=== PATIENT | male | born 1990 | race Two or more races ===

== ENCOUNTER 2025-01-10 22:39 | Inpatient (IN) | payer BC ==
[~2025-01-10] VITALS: Ht 177.8 cm; Wt 111.5 kg
[2025-01-11] VITALS (8 sets, daily range): BP systolic 133–163; BP diastolic 80–95; PULSE 102–116; RESP 18–20; TEMP 98.6–99.2; O2SAT 93–95
[2025-01-11] MEDS ORDERED: DEXTROSE (50%) 50ML SYRG IV PRN (02:00)
[2025-01-11] MEDS ORDERED: ONDANSETRON HCL 4 MG/2 ML VIAL IV PRN (02:00)
[2025-01-11 02:41] LABS: Basophils # (auto) 0.1 10 ^3/uL (0-0.2); Basophils % (auto) 0.5 % (0.0-2.0); Eosinophils # (auto) 0 10 ^3/uL (0-0.8); Eosinophils % (auto) 0.1 % (0.0-7.0); Hematocrit 40.6 % (41.0-53.0); Hemoglobin 13.6 g/dL (13.5-17.5); Lymphocytes # (auto) 1.1 10 ^3/uL (0.4-5.4); Lymphocytes % (auto) 6.1 % (10.0-50.0); Mean Corpuscular Hemoglobin 27.8 pg (28.0-32.0); Mean Corpuscular Hgb Conc. 33.5 g/dL (32.0-36.0); Monocytes # (auto) 1.2 10 ^3/uL (0-1.3); Monocytes % (auto) 6.7 % (0.0-12.0); Neutrophils # (auto) 15.8 10 ^3/uL (1.6-8.6); Neutrophils % (auto) 86.6 % (37.0-80.0); Nucleated Red Blood Cells % 0.1 %; Platelet Count (auto) 281 10^3/uL (140-450); Red Blood Cells 4.89 10^6/uL (4.5-5.90); Red Cell Distribution Width 13.7 % (11.8-14.3); White Blood Cell 18.2 10^3/uL (4.4-10.8)
[2025-01-11 03:01] LABS: Alanine Aminotransferase 13 U/L (7-40); Albumin 3.4 g/dL (3.2-4.8); Alkaline Phosphatase 104 U/L (46-116); Anion Gap 9 (5-15); Aspartate Aminotransferase 16 U/L (13-40); BUN/Creatinine Ratio 20.5 (10.0-20.0); Bilirubin, Total 0.5 mg/dL (0.2-1.0); Blood Urea Nitrogen 9 mg/dL (9-23); Carbon Dioxide 28 mmol/L (20-31)
[2025-01-11 03:14] LABS: Calcium 8.6 mg/dL (8.7-10.4); Chloride 94 mmol/L (98-107); Glucose 277 mg/dL (74-106); Sodium 131 mmol/L (136-145); Total Protein 5.5 g/dL (5.7-8.2)
--- NOTE | 2025-01-11 03:27 | BSKYNEURO ---
[facility] Note # Demographics Consult Type: General Neurology Patient Location: Inpatient First Name: Anjum Last Name: Ant Date of : 1990 Age: 34 Gender: Male Facility: [facility] Time of Initial Page (): 01/11/2025 02:53 Time of Return Call (): 01/11/2025 02:53 # HPI History: pt was transferred from [place] for further evaluation. history is taken entirely from the patient as I am unable to reach the consulting provider. I have no access to the outside records. there is no information in his chart at the time of the consultation. The patient reprots t he following about his hospitalization and history of symptoms: wednesday started to have symptoms in the left leg. he states his leg felt numb which worsened at that time. He reports an MRI of the brain was done which he was told dint show anything. he reprots pain in his upper back which is not new. reports left arm weakness which has been ongoing for 2 weeks around the time that the pain started. denies urinary # Exam Mental Status: - awake - alert and oriented x 3 - follows commands Language: - normal speech Cranial Nerves: - normal Motor: left arm drift. left leg unable to lift anti-gravity, able to move distally. right side appears to have no drift Cerebellar: normal right, Additional Neurologic Exam: This evaluation is limited due to being a telemed assessment, in person assessment will be helpful for more subtle signs that cannot be detected over telemed or aspects of the exam that are untestable over a telemed assessment # Assessment Impression: left sided weakness with upper back pain. concern for C-spine cause. pt was told his brain MRIw as without a cause # Plan Imaging: (urgency: routine): - MRI C spine - MRI T spine wwo contrast Therapy/Evaluation: - PT/OT evaluation Other: - If patient has any neurological deterioration please call me back immediately Additional Recommendations: Further work-up based on MRI results # Logistics Attestation of consult completion: The patient is located at: [facility]. Facility staff participated in the visit. I performed this telemedicine visit from my offsite office utilizing interactive 2 way audio and visual telecommunication technology. Total time spent in telemedicine encounter: I spent 10 minutes reviewing clinical data and/or imaging, obtaining history, examining the patient, communicating with the onsite care team, and in preparation of this report. # Demographics First Name: Anjum Last Name: Ant Facility: [facility] Yes PLACIDO HERNANDEZ DO Jan 11, 2025 03:27
[2025-01-11] MEDS ORDERED: hydrALAZINE HCL 20 MG/ML VL IV PRN (04:15)
--- NOTE | 2025-01-11 04:29 | DVHHP2 ---
History of Present Illness Reason for Visit: Left-sided weakness History of Present Illness 34-year-old male transferred for continuity of care and disposition. Patient presented to outside facility with complaints of left-sided weakness and slurred speech. Patient was worked up for acute stroke. MRI of the brain and CT of the head and neck were all negative for acute stroke. Patient's slurred speech resolved. He continues to have left arm and left leg weakness. Patient denies headache or blurred vision. No cardiac or respiratory complaints. Past Medical History Hypertension and diabetes mellitus Past Surgical History Cholecystectomy Family History Noncontributory Smoke: No ALCOHOL: none Drugs: None Lives: with Family Review of Systems Review of Systems Review of systems are currently negative otherwise addressed in HPI. Allergies: Coded Allergies: NO KNOWN ALLERGIES (Unverified , 01/11/25) Medications Current Medications Medications Dose Ordered Sig/Anita Route Start Time Stop Time Status Last Admin Dose Admin Aspirin 162 mg DAILY PO 01/11/25 10:00 Atorvastatin Calcium 20 mg HS PO 01/11/25 22:00 Diagnostic Test (Pha) 1 strip ACHS 01/11/25 07:00 Insulin Human Regular ACHS SC 01/11/25 07:00 Dextrose 50 ml UD PRN IV 01/11/25 02:00 Ondansetron HCl 4 mg Q4HP PRN IV 01/11/25 02:00 Enoxaparin Sodium 40 mg DAILY SC 01/11/25 10:00 UNV Acetaminophen 650 mg Q6HP PRN PO 01/11/25 02:00 Exam Vital Signs Vital Signs Date Time Temp Pulse Resp B/P (MAP) Pulse Ox O2 Delivery O2 Flow Rate FiO2 01/11/25 01:00 99.0 102 19 163/95 (117) 95 99.0 01/11/25 00:49 Room Air* 0 21 Exam Gen: 34-year-old male in mild distress Skin: Warm, dry, normal color and texture, no rash. HEENT: Normocephalic atraumatic, mucous membranes moist and pink. Neck: Cervical and supraclavicular nodes normal without enlargement, trachea is midline, thyroid gland is normal without masses. Pulmonary: Clear to auscultation and percussion bilaterally. Cardiac: Regular rate and rhythm. No murmur Abdomen: Soft, nontender, nondistended, bowel sounds present all 4 quadrants, no guarding, no rigidity, no organomegaly. Extremities: No cyanosis, clubbing, no edema Neuro: Cranial nerves II through XII grossly intact, normal affect and speech,LUE4/5, LLE1/5, RUE/RLE 5/5 Labs/Xrays MRI of the brain, CT of the brain and neck with contrast, CT angio of the chest showed no acute pathology Labs Test 01/11/25 02:23 Range/Units White Blood Count 18.2 H 4.4-10.8 10^3/uL Red Blood Count 4.89 4.5-5.90 10^6/uL Hemoglobin 13.6 13.5-17.5 g/dL Hematocrit 40.6 L 41.0-53.0 % Mean Corpuscular Volume 83.0 80.0-100.0 fL Mean Corpuscular Hemoglobin 27.8 L 28.0-32.0 pg Mean Corpuscular Hemoglobin Concent 33.5 32.0-36.0 g/dL Red Cell Distribution Width 13.7 11.8-14.3 % Platelet Count 281 140-450 10^3/uL Mean Platelet Volume 7.3 6.9-10.8 fL Neutrophils (%) (Auto) 86.6 H 37.0-80.0 % Lymphocytes (%) (Auto) 6.1 L 10.0-50.0 % Monocytes (%) (Auto) 6.7 0.0-12.0 % Eosinophils (%) (Auto) 0.1 0.0-7.0 % Basophils (%) (Auto) 0.5 0.0-2.0 % Neutrophils # (Auto) 15.8 H 1.6-8.6 10 ^3/uL Lymphocytes # (Auto) 1.1 0.4-5.4 10 ^3/uL Monocytes # (Auto) 1.2 0-1.3 10 ^3/uL Eosinophils # (Auto) 0 0-0.8 10 ^3/uL Basophils # (Auto) 0.1 0-0.2 10 ^3/uL Nucleated Red Blood Cells 0.1 % Sodium Level 131 L 136-145 mmol/L Potassium Level 4.0 3.5-5.1 mmol/L Chloride Level 94 L 98-107 mmol/L Carbon Dioxide Level 28 20-31 mmol/L Anion Gap 9 5-15 Blood Urea Nitrogen 9 9-23 mg/dL Creatinine 0.44 L 0.700-1.30 mg/dL Glomerular Filtration Rate Calc 142 >90 mL/min BUN/Creatinine Ratio 20.5 H 10.0-20.0 Serum Glucose 277 H 74-106 mg/dL Calcium Level 8.6 L 8.7-10.4 mg/dL Total Bilirubin 0.5 0.2-1.0 mg/dL Aspartate Amino Transferase (AST) 16 13-40 U/L Alanine Aminotransferase (ALT) 13 7-40 U/L Alkaline Phosphatase 104 46-116 U/L Troponin I High Sensitivity 13 </=54 ng/L Total Protein 5.5 L 5.7-8.2 g/dL Albumin 3.4 3.2-4.8 g/dL Assessment/Plan Assessment/Plan Assessment Cerebrovascular accident, nonhemorrhagic Uncontrolled diabetes mellitus Accelerated hypertension Leukocytosis Plan Admit the patient to [facility] to the hospitalist Neurology consultation MRI of the brain with contrast as well as MRI of the C-spine has been ordered per Neurology recommendations Resume home medications Continue treatment per orders. Plan discussed with: Patient My Orders Orders - EULALIO OLVERA Procedure Category Date Status Time Communication Order ORDERS 01/11/25 Transmitted 01:58 * Neurology Consult CONS 01/11/25 Transmitted 01:58 Atorvastatin (Lipitor) PHA 01/11/25 In Process 22:00 Glucose Blood PHA 01/11/25 In Process (Accu-Chek Comfort 07:00 Insulin R (Human) PHA 01/11/25 In Process (Insulin R) 07:00 Dextrose 50% Syringe PHA 01/11/25 In Process 02:00 Admit ADMIT 01/11/25 Transmitted 01:58 Ondansetron Hcl PHA 01/11/25 In Process (Zofran) 02:00 Enoxaparin Sodium PHA 01/11/25 Pending (Lovenox) 10:00 Cardiac DIET 01/11/25 Transmitted Diet-2gna,Lofat,Lochol Breakfast Condition: Stable LEONCIO 01/11/25 In Process 01:58 Acetaminophen Tablet PHA 01/11/25 In Process (Tylenol Tablet) 02:00 Sequential LEONCIO 01/11/25 In Process Compression Device [facility] Neuro Consult CONS 01/11/25 Transmitted 02:54 * Wound Consult CONS 01/11/25 Transmitted Aspirin Tablet PHA 2/20/25 In Process 04:15 Urinalysis LAB 01/11/25 Logged 04:12 Losartan Tablet PHA 01/11/25 In Process (Cozaar Tablet) 10:00 Metoprolol Tartrate PHA 01/11/25 Logged Tablet (Lopressor Ta 10:00 Hydralazine Injection PHA 01/11/25 Logged (Apresoline Inject 04:15 Brain Head Wo W MRI 01/11/25 Logged Contrast 04:12 Cervical Wo Contrast MRI 01/11/25 Logged 04:12 Cervical With Contrast MRI 01/11/25 Verified 04:20 Brain Head Wo W MRI 01/11/25 Verified Contrast 04:20 Date of Service: Jan 11, 2025 Billing Provider: EULALIO OLVERA Common Visit Codes: [id number] INP/OBS CARE (HIGH) EULALIO OLVERA Jan 11, 2025 04:29
[2025-01-11] MEDS: InsuLIN REG 1unit/0.01ml Soln (100units/ml) SC SCH (05:53)
[2025-01-11] MEDS: ASPirin 81 mg TAB PO SCH (05:55)
[2025-01-11] MEDS: ACCU-CHEK COMFORT CURVE STRIP VI SCH (05:55)
--- NOTE | 2025-01-11 09:40 | DVH ---
PROCEDURE: MRI CERVICAL WITH CONTRAST INDICATION: left leg weakness EXAM DATE: 01/11/2025 08:36 AM COMPARISON: None TECHNIQUE: MRI cervical spine with and without 20 cc clariscan intravenous contrast. FINDINGS: The cervical alignment is intact. There is marrow edema and enhancement with destructive endplate ch anges at C4-5. There is surrounding enhancing soft tissue phlegmon at this level. There is a peripher ally enhancing epidural abscess measuring up to 10 x 17 mm extending from the C3-4 level through the visualized upper thoracic spine. The visualized posterior fossa and craniocervical junction are inta ct. There appears to be patchy abnormal cord signal in the lower cervical and upper thoracic levels. The following axial levels are detailed below: C2-C3: Unremarkable. C3-C4: Unremarkable. C4-C5: Epidural abscess results in severe central canal stenosis with impression on the cervical cor d. Moderate right neural foraminal stenosis. C5-C6: Epidural abscess results in severe central canal stenosis with impression on the cervical cor d. Mild right neural foraminal stenosis. C6-C7: Epidural abscess results in severe central canal stenosis and [id number] left neural fo raminal stenosis. C7-T1: Epidural abscess results in severe central canal stenosis and [id number] left neural fo raminal stenosis IMPRESSION: 1. 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 Distal extent of the abscess is not identified. Consi nhung further evaluation with MRI of the thoracic and lumbar spine with contrast. Abscess results in se jalen central canal stenosis with impression on the cord. There is surrounding soft tissue phlegmon at the C4-5 level. There is patchy abnormal cord signal in the lower cervical and upper thoracic spine. 2. Neural foraminal stenosis as above. Critical Result: Cord Compression Findings discussed with Nurse Tawanna taking care of the patient at 01/11/2025 09:34 AM, and acknowled ged receipt and understanding of the findings. HS:Y
--- NOTE | 2025-01-11 09:49 | DVH ---
PROCEDURE: MRI BRAIN HEAD WO W CONTRAST INDICATION: r/o cva EXAM DATE: 01/11/2025 08:24 AM COMPARISON: None TECHNIQUE: MRI of the brain without intravenous contrast. FINDINGS: Diffusion weighted images of the brain demonstrate no evidence of acute infarction. There is no evidence of acute intracranial hemorrhage, extra-axial collection, mass effect, midline s hift, herniation or hydrocephalus. The ventricles, sulci and cisterns appear age appropriate. There is signal abnormality in the high left frontal lobe. No associated abnormal enhancement. There are no signal abnormalities on the susceptibility weighted sequences. The major vascular flow voids are present. The visualized paranasal sinuses and mastoid air cells are clear. The surrounding soft tissues and o sseous structures are unremarkable. IMPRESSION: 1. Abnormal signal in the left high frontal lobe without associated enhancement. Patient has suspect ed osteomyelitis discitis with an epidural abscess in the cervical spine. It is unlikely that this is related given lack of enhancement, but not completely excluded. This is more likely related to an o ld infarct or trauma. Clinical correlation and continued follow-up is recommended. HS:Y
[2025-01-11] MEDS ORDERED: ASPirin 81 mg TAB PO SCH (10:00)
[2025-01-11] MEDS: METOPROLOL TARTRATE 50 MG TAB PO SCH (10:42)
[2025-01-11] MEDS: ENOXAPARIN SOD 40 MG/0.4 ML SYRINGE SC SCH (10:42)
[2025-01-11] MEDS: LOSARTAN POTASSIUM 50 MG TAB PO SCH (10:43)
[2025-01-11] MEDS ORDERED: VANCOMYCIN PER PHARMACY 0 MG IV SCH (10:45)
--- NOTE | 2025-01-11 10:46 | DVHPN2 ---
Reviewed: Care Plan, H&P, Labs, Medications, Previous Orders, Radiology Changes from previous H/P or p: No Changes Objective Vitals Vital Signs Date Time Temp Pulse Resp B/P (MAP) Pulse Ox O2 Delivery O2 Flow Rate FiO2 01/11/25 09:00 98.7 106 20 140/81 (100) 93 98.7 01/11/25 00:49 Room Air* 0 21 Intake/Output Intake and Output 01/11/25 06:59 Intake Total 150 ml Output Total 800 ml Balance -650 ml Intake Oral 150 ml Output Urine Total 800 ml Medications Current Medications Medications Dose Ordered Sig/Anita Route Start Time Stop Time Status Last Admin Dose Admin Atorvastatin Calcium 20 mg HS PO 01/11/25 22:00 Diagnostic Test (Pha) 1 strip ACHS 01/11/25 07:00 01/11/25 05:55 1 STRIP Insulin Human Regular ACHS SC 01/11/25 07:00 01/11/25 05:53 4 UNITS Dextrose 50 ml UD PRN IV 01/11/25 02:00 Ondansetron HCl 4 mg Q4HP PRN IV 01/11/25 02:00 Enoxaparin Sodium 40 mg DAILY SC 01/11/25 10:00 Acetaminophen 650 mg Q6HP PRN PO 01/11/25 02:00 Aspirin 81 mg DAILY PO 01/11/25 04:15 01/11/25 05:55 81 MG Losartan Potassium 50 mg BID PO 01/11/25 10:00 Metoprolol Tartrate 50 mg BID PO 01/11/25 10:00 Hydralazine HCl 10 mg Q6HP PRN IV 01/11/25 04:15 Laboratory Results Laboratory Tests 01/11/25 02:23 Chemistry Test 01/11/25 02:23 Albumin 3.4 g/dL (3.2-4.8) Calcium Level 8.6 mg/dL (8.7-10.4) L Total Protein 5.5 g/dL (5.7-8.2) L LFT Test 01/11/25 02:23 Alanine Aminotransferase (ALT) 13 U/L (7-40) Alkaline Phosphatase 104 U/L (46-116) Aspartate Amino Transferase (AST) 16 U/L (13-40) Total Bilirubin 0.5 mg/dL (0.2-1.0) Labs and/or images reviewed: Labs reviewed by me, Image(s) reviewed by me Assessment/Plan Assessment/Plan Left upper extremity weakness one month Left lower extremity weakness five days Epidural abscess C4-5 level with cord compression: Consult placed for spine surgeon Dr. Thakur for emergency decompression Osteomyelitis C-spine: Cefepime vancomycin Plan discussed with: Patient My Orders Orders - SHELLI MARTIN MD Procedure Category Date Status Time Vancomycin Per PHA 01/11/25 Logged Pharmacy 10:45 Cefepime 2gm/50ml Ns PHA 01/11/25 Logged (Maxipime 2gm/50ml) 14:00 * Orthopedic Consult CONS 01/11/25 Transmitted 10:38 Date of Service: Jan 11, 2025 Billing Provider: SHELLI MARTIN MD Common Visit Codes: [id number] INP/OBS CARE(HIGH) SHELLI MARTIN MD Jan 11, 2025 10:46
--- NOTE | 2025-01-11 11:17 | DVHINCON2 ---
MARCO ANTONIO THAKUR MD 01/11/25 1117: Consultation - Spinal Surgery Date Seen: Jan 11, 2025 Referring Physician Referring Physician elaina History of Present Illness History of Present Illness unfortunate patient thought to have a stroke but MRI cervical spine reveals likely epidural abscess. The patient is currently not having increasing T or increasing WBC but the abscess was just noted on MRI Allergies and medications Allergies: Coded Allergies: NO KNOWN ALLERGIES (Unverified , 01/11/25) Examination Vital signs Vital Signs Date Time Temp Pulse Resp B/P (MAP) Pulse Ox O2 Delivery O2 Flow Rate FiO2 01/11/25 10:43 140/81 01/11/25 10:42 106 01/11/25 09:00 98.7 20 93 98.7 01/11/25 00:49 Room Air* 0 21 Medications Current Medications Medications (Trade) Dose Ordered Sig/Anita Route PRN Reason Start Time Stop Time Status Last Admin Aspirin 162 mg DAILY PO 01/11/25 10:00 01/11/25 04:19 DC Atorvastatin Calcium (Lipitor) 20 mg HS PO 01/11/25 22:00 Diagnostic Test (Pha) (Accu-Chek Comfort Curve T) 1 strip ACHS 01/11/25 07:00 01/11/25 05:55 Insulin Human Regular (InsuLIN R) ACHS SC 01/11/25 07:00 01/11/25 05:53 Dextrose 50 ml UD PRN IV Blood Sugar LESS THAN 60 01/11/25 02:00 Ondansetron HCl (Zofran) 4 mg Q4HP PRN IV NAUSEA / VOMITING 01/11/25 02:00 Enoxaparin Sodium (Lovenox) 40 mg DAILY SC 01/11/25 10:00 01/11/25 10:42 Acetaminophen (Tylenol Tablet) 650 mg Q6HP PRN PO PAIN SCALE 1-3 OR TEMP>100.4 01/11/25 02:00 Aspirin 81 mg DAILY PO 01/11/25 04:15 01/11/25 10:42 Losartan Potassium (Cozaar Tablet) 50 mg BID PO 01/11/25 10:00 01/11/25 10:43 Metoprolol Tartrate (Lopressor Tablet) 50 mg BID PO 01/11/25 10:00 01/11/25 10:42 Hydralazine HCl (Apresoline Injection) 10 mg Q6HP PRN IV SBP>150 01/11/25 04:15 Vancomycin HCl 0 ml @ 0 mls/hr UD IV 01/11/25 10:45 UNV Cefepime HCl 50 ml @ 12.5 mls/hr Q8HR IV 01/11/25 14:00 UNV Laboratory PATIENT: KRIS TREVIZO ACCT: [id number] UNIT: [id number] : 1990 LOC: CENTRAL ROOM / BED: [address] [place] [address] AGE / SEX: 34 / M ADM STATUS: ADM IN SERVICE 9 ORDERING PHYSICIAN: EULALIO OLVERA PROCEDURE(s): MSC - CERVICAL WITH CONTRAST REASON: ORDER NUMBER(s): [id number], ACCESSION NUMBER(s): [id number] PROCEDURE: MRI CERVICAL WITH CONTRAST INDICATION: left leg weakness EXAM DATE: 01/11/2025 08:36 AM COMPARISON: None TECHNIQUE: MRI cervical spine with and without 20 cc clariscan intravenous contrast. FINDINGS: The cervical alignment is intact. There is marrow edema and enhancement with destructive endplate changes at C4-5. There is surrounding enhancing soft tissue phlegmon at this level. There is a peripherally enhancing epidural abscess measuring up to 10 x 17 mm extending from the C3-4 level through the visualized upper thoracic spine. The visualized posterior fossa and craniocervical junction are intact. There appears to be patchy abnormal cord signal in the lower cervical and upper thoracic levels. The following axial levels are detailed below: C2-C3: Unremarkable. C3-C4: Unremarkable. C4-C5: Epidural abscess results in severe central canal stenosis with impression on the cervical cord. Moderate right neural foraminal stenosis. C5-C6: Epidural abscess results in severe central canal stenosis with impression on the cervical cord. Mild right neural foraminal stenosis. C6-C7: Epidural abscess results in severe central canal stenosis and [id number]-nridpvor left neural foraminal stenosis. C7-T1: Epidural abscess results in severe central canal stenosis and [id number] left neural foraminal stenosis IMPRESSION: 1. Osteomyelitis discitis centered at C4-5 with a large epidural abscess extending from the C3-4 level through the visualized upper thoracic spine. Distal extent of the abscess is not identified. Consider further evaluation with MRI of the thoracic and lumbar spine with contrast. Abscess results in severe central canal stenosis with impression on the cord. There is surrounding soft tissue phlegmon at the C4-5 level. There is patchy abnormal cord signal in the lower cervical and upper thoracic spine. 2. Neural foraminal stenosis as above. Critical Result: Cord Compression Findings discussed with Nurse Tawanna taking care of the patient at 01/11/2025 09:34 AM, and acknowledged receipt and understanding of the findings. HS:Y ATED BY: LINWOOD SEPULVEDA MD DICTATED DATE/TIME: 01/11/25937 SIGNED BY: LINWOOD SEPULVEDA MD SIGNED DATE/TIME: 01/11/25937 CC: Labs Test 01/11/25 05:45 01/11/25 02:23 Range/Units POC Glucose 217 H 70-106 mg/dl White Blood Count 18.2 H 4.4-10.8 10^3/uL Red Blood Count 4.89 4.5-5.90 10^6/uL Hemoglobin 13.6 13.5-17.5 g/dL Hematocrit 40.6 L 41.0-53.0 % Mean Corpuscular Volume 83.0 80.0-100.0 fL Mean Corpuscular Hemoglobin 27.8 L 28.0-32.0 pg Mean Corpuscular Hemoglobin Concent 33.5 32.0-36.0 g/dL Red Cell Distribution Width 13.7 11.8-14.3 % Platelet Count 281 140-450 10^3/uL Mean Platelet Volume 7.3 6.9-10.8 fL Neutrophils (%) (Auto) 86.6 H 37.0-80.0 % Lymphocytes (%) (Auto) 6.1 L 10.0-50.0 % Monocytes (%) (Auto) 6.7 0.0-12.0 % Eosinophils (%) (Auto) 0.1 0.0-7.0 % Basophils (%) (Auto) 0.5 0.0-2.0 % Neutrophils # (Auto) 15.8 H 1.6-8.6 10 ^3/uL Lymphocytes # (Auto) 1.1 0.4-5.4 10 ^3/uL Monocytes # (Auto) 1.2 0-1.3 10 ^3/uL Eosinophils # (Auto) 0 0-0.8 10 ^3/uL Basophils # (Auto) 0.1 0-0.2 10 ^3/uL Nucleated Red Blood Cells 0.1 % Sodium Level 131 L 136-145 mmol/L Potassium Level 4.0 3.5-5.1 mmol/L Chloride Level 94 L 98-107 mmol/L Carbon Dioxide Level 28 20-31 mmol/L Anion Gap 9 5-15 Blood Urea Nitrogen 9 9-23 mg/dL Creatinine 0.44 L 0.700-1.30 mg/dL Glomerular Filtration Rate Calc 142 >90 mL/min BUN/Creatinine Ratio 20.5 H 10.0-20.0 Serum Glucose 277 H 74-106 mg/dL Calcium Level 8.6 L 8.7-10.4 mg/dL Total Bilirubin 0.5 0.2-1.0 mg/dL Aspartate Amino Transferase (AST) 16 13-40 U/L Alanine Aminotransferase (ALT) 13 7-40 U/L Alkaline Phosphatase 104 46-116 U/L Troponin I High Sensitivity 13 </=54 ng/L Total Protein 5.5 L 5.7-8.2 g/dL Albumin 3.4 3.2-4.8 g/dL Problem List/Assessment/Plan Assessment and Plan This epidural abscess requires a surgical drainage that is to be done with a posterior laminectomy [facility] doesn't have equipment for this type for surgery. Therefore, we recommend brandi transfer to [facility] for surgical treatment to drain the abscess. DWIGHT TORRES NP 01/11/251936: Consultation - Spinal Surgery Date Seen: Jan 11, 2025 Referring Physician Referring Physician Dr Tomlinson Reason for Consultation Reason for Visit: Left-sided weakness cervical epidural abscess History of Present Illness History of Present Illness History of Present Illness 34-year-old male transferred for continuity of care and disposition. Patient presented to outside facility with complaints of left-sided weakness and slurred speech. Patient was worked up for acute stroke. MRI of the brain and CT of the head and neck were all negative for acute stroke. Patient's slurred speech resolved. He continues to have left arm and left leg weakness. Patient denies headache or blurred vision. No cardiac or respiratory complaints. Past Medical/Surgical History Past Medical/Surgical History Past Medical History Hypertension and diabetes mellitus Past Surgical History Cholecystectomy Family and Social History Family and Social History Family History Noncontributory Smoke: No ALCOHOL: none Drugs: None Lives: with Family Review of systems Review of Systems: HEENT:Normal, CVS:Normal, RESPIRATORY:Normal, GI:Normal, :Normal, MSK:Abnormal (weak LLE), NEURO:Abnormal (left leg numb, last three toes num, unable to walk) Examination Examination: GENERAL:Normal, HEENT:Normal, LUNGS:Normal, CVS:Normal, ABDOMEN:Normal, MSK:Abnormal (weak left leg with numbness to lower leg and foot), SKIN:Normal, NEURO:Abnormal (weakness to left lower leg, unable to ambulate due to this), :Normal Problem List/Assessment/Plan Problems: (1) Abscess in epidural space of cervical spine Assessment and Plan Cervical epidural abscess- requires surgical drainage that is to be done with a posterior laminectomy This patient needs to be transferred to a higher level of care, the finding of cervical epidural abscess requires posterior approach which requires equipment which is not available at [facility] nor in the [facility] area. Further care per admitting team discretion. PT evaluation and treatment recommendations Call with andrea Torres [facility] Orthopaedic Spine Surgery nurse practitioner For Dr Gracia Thakur Patient was examined, chart reviewed, labs evaluated, and diagnostic studies and findings analyzed. Case was discussed with Dr. Marco Antonio Thakur who formulated the plan of care. This medical document was created using an electronic medical record system with [employer] dictation system. Although this document has been carefully reviewed, there might still be some phonetic and typographical errors. These areas are purely typographical due to imperfections of the software programs, and do not reflect any compromise in the patient's medical care. Plan discussed with Plan discussed with: Patient, Other (DR Thakur spoke with Dr Tomlinson) MARCO ANTONIO THAKUR MD Jan 11, 2025 11:17 DWIGHT TORRES NP Jan 11, 2025 19:37
--- NOTE | 2025-01-11 11:27 | DVHDS2 ---
Discharge Summary Date of Admission Jan 11, 2025 at 00:16 Date of Discharge: Jan 11, 2025 Admitting Diagnosis Weakness in the left upper and lower extremities Wounds: None Labs/Diagnostic Data: Laboratory Results Test 01/11/25 05:45 01/11/25 02:23 POC Glucose 217 mg/dl (70-106) White Blood Count 18.2 10^3/uL (4.4-10.8) Red Blood Count 4.89 10^6/uL (4.5-5.90) Hemoglobin 13.6 g/dL (13.5-17.5) Hematocrit 40.6 % (41.0-53.0) Mean Corpuscular Volume 83.0 fL (80.0-100.0) Mean Corpuscular Hemoglobin 27.8 pg (28.0-32.0) Mean Corpuscular Hemoglobin Concent 33.5 g/dL (32.0-36.0) Red Cell Distribution Width 13.7 % (11.8-14.3) Platelet Count 281 10^3/uL (140-450) Mean Platelet Volume 7.3 fL (6.9-10.8) Neutrophils (%) (Auto) 86.6 % (37.0-80.0) Lymphocytes (%) (Auto) 6.1 % (10.0-50.0) Monocytes (%) (Auto) 6.7 % (0.0-12.0) Eosinophils (%) (Auto) 0.1 % (0.0-7.0) Basophils (%) (Auto) 0.5 % (0.0-2.0) Neutrophils # (Auto) 15.8 10 ^3/uL (1.6-8.6) Lymphocytes # (Auto) 1.1 10 ^3/uL (0.4-5.4) Monocytes # (Auto) 1.2 10 ^3/uL (0-1.3) Eosinophils # (Auto) 0 10 ^3/uL (0-0.8) Basophils # (Auto) 0.1 10 ^3/uL (0-0.2) Nucleated Red Blood Cells 0.1 % Sodium Level 131 mmol/L (136-145) Potassium Level 4.0 mmol/L (3.5-5.1) Chloride Level 94 mmol/L (98-107) Carbon Dioxide Level 28 mmol/L (20-31) Anion Gap 9 (5-15) Blood Urea Nitrogen 9 mg/dL (9-23) Creatinine 0.44 mg/dL (0.700-1.30) Glomerular Filtration Rate Calc 142 mL/min (>90) BUN/Creatinine Ratio 20.5 (10.0-20.0) Serum Glucose 277 mg/dL (74-106) Calcium Level 8.6 mg/dL (8.7-10.4) Total Bilirubin 0.5 mg/dL (0.2-1.0) Aspartate Amino Transferase (AST) 16 U/L (13-40) Alanine Aminotransferase (ALT) 13 U/L (7-40) Alkaline Phosphatase 104 U/L (46-116) Troponin I High Sensitivity 13 ng/L (</=54) Total Protein 5.5 g/dL (5.7-8.2) Albumin 3.4 g/dL (3.2-4.8) Other Laboratory Tests 01/11/25 02:23 Brief Hx & Hospital Course: 34-year-old male with no previous medical history complaining of weakness of the left upper extremity for the last one month and weakness of the lower extremity for the last five days. No history of trauma. MRI C-spine showed epidural abscess at C4-5 level with cord compression MRI brain was negative. Patient also has osteomyelitis of the C-spine for which he was started on cefepime and vancomycin. Consult placed for spine surgeon Dr. Thakur prevent patient to be transferred to higher level of care for drainage of the abscess and laminectomy orders placed. Consults/Reason for consult Spine surgeon Dr. Thakur Operations or Procedures MRI of the brain MRI C-spine Condition at Discharge: Fair Final Diagnosis/Problems List Left upper extremity weakness one month Left lower extremity weakness five days Epidural abscess C4-5 level with cord compression: Patient needs transfer to higher level of care for Dr. Thakur he needs laminectomy and drainage of the abscess Osteomyelitis C-spine: Cefepime vancomycin Discharge Disposition: Acute Care Facility Discharge Instruct/Medications Diet: Regular Activity: Bed rest Follow Up/Referral: per receiving hospital Medications: see list 35 (Time taken for discharge summary 35 minutes) Discharge Statement: "Patient was advised to return to the ER or call 911 if any headaches, dizziness, shortness of breath, chest pain, abdominal pain, bleeding, fevers, or worsening of medical condition. Patient was counseled about treatment plan, medications, possible side effects, patientverbalized understanding. All questions were answered to the best of my ability. This discharge took greater then 30 minutes in planning, reviewing documentation, counseling the patient, and discussing with other team members." ASSESSMENT ASSESSMENT Hospital Course No change Assessment Left upper extremity weakness one month Left lower extremity weakness five days Epidural abscess C4-5 level with cord compression: Patient needs transfer to higher level of care for Dr. Thakur he needs laminectomy and drainage of the abscess Osteomyelitis C-spine: Cefepime vancomycin Date of Service: Jan 11, 2025 Billing Provider: SHELLI MARTIN MD Common Visit Codes: [id number]/OBS DISCH DAY >30min SHELLI MARTIN MD Jan 11, 2025 11:27
[2025-01-11] MEDS: CEFEPIME 2GM/50ML NS 50 ML IV ONE (13:54)
[2025-01-11] MEDS: VANCOMYCIN 1.75GM/350ML 350 ML IV ONE (15:40)
[2025-01-11 20:09] LABS: COVID19 ANTIGEN SOFIA FIA NEGATIVE (NEGATIVE)
[2025-01-11] MEDS: CEFEPIME 2GM/50ML NS 50 ML IV SCH (20:55)
[2025-01-11] MEDS: ATORVASTATIN 20 MG TAB PO SCH (21:25)
[2025-01-12] VITALS (9 sets, daily range): BP systolic 124–153; BP diastolic 75–96; PULSE 95–107; RESP 14–20; TEMP 97.7–98.8; O2SAT 93–96
[2025-01-12] MEDS: VANCOMYCIN 1.25GM/250ML 250 ML IV SCH (00:48)
--- NOTE | 2025-01-12 09:44 | DVHPN2 ---
Reviewed: Care Plan, H&P, Labs, Medications, Previous Orders, Radiology Changes from previous H/P or p: No Changes Objective Vitals Vital Signs Date Time Temp Pulse Resp B/P (MAP) Pulse Ox O2 Delivery O2 Flow Rate FiO2 01/12/25 09:05 98.6 95 19 153/95 (114) 96 98.6 01/11/25 19:40 Room Air* 0 21 Intake/Output Intake and Output 01/12/25 07:00 Intake Total 2263 ml Output Total 2100 ml Balance 163 ml Intake Oral 1563 ml IV Total 700 ml Output Urine Total 2100 ml # Bowel Movements 6 Medications Current Medications Medications Dose Ordered Sig/Anita Route Start Time Stop Time Status Last Admin Dose Admin Atorvastatin Calcium 20 mg HS PO 01/11/25 22:00 01/11/25 21:25 20 MG Diagnostic Test (Pha) 1 strip ACHS 01/11/25 07:00 01/12/25 06:08 1 STRIP Insulin Human Regular ACHS SC 01/11/25 07:00 01/12/25 06:08 4 UNITS Dextrose 50 ml UD PRN IV 01/11/25 02:00 Ondansetron HCl 4 mg Q4HP PRN IV 01/11/25 02:00 Enoxaparin Sodium 40 mg DAILY SC 01/11/25 10:00 01/11/25 10:42 40 MG Acetaminophen 650 mg Q6HP PRN PO 01/11/25 02:00 Aspirin 81 mg DAILY PO 01/11/25 04:15 01/11/25 10:42 81 MG Losartan Potassium 50 mg BID PO 01/11/25 10:00 01/11/25 21:25 50 MG Metoprolol Tartrate 50 mg BID PO 01/11/25 10:00 01/11/25 21:25 50 MG Hydralazine HCl 10 mg Q6HP PRN IV 01/11/25 04:15 Vancomycin HCl 0 ml @ 0 mls/hr UD IV 01/11/25 10:45 Cefepime HCl 50 ml @ 12.5 mls/hr Q8H IV 01/11/25 20:00 01/12/25 04:00 12.5 MLS/HR Vancomycin HCl 250 ml @ 200 mls/hr Q8H IV 01/12/25 00:00 01/12/25 08:17 200 MLS/HR Laboratory Results Laboratory Tests 01/11/25 02:23 01/12/25 05:39 Labs and/or images reviewed: Labs reviewed by me, Image(s) reviewed by me Assessment/Plan Assessment/Plan Left upper extremity weakness one month Left lower extremity weakness five days Epidural abscess C4-5 level with cord compression: Consult placed for spine surgeon Dr. Thakur for emergency decompression. He advised to transfer the patient to higher level of care as the equipment is not available [facility] or in the [facility] area Osteomyelitis C-spine: Cefepime vancomycin Orders placed for transfer executive secretary social welfare working on transfer. Plan discussed with: Patient My Orders Orders - SHELLI MARTIN MD Procedure Category Date Status Time Vancomycin Per PHA 01/11/25 In Process Pharmacy 10:45 Cefepime 2gm/50ml Ns PHA 01/11/25 In Process (Maxipime 2gm/50ml) 20:00 * Orthopedic Consult CONS 01/11/25 Transmitted 10:38 * [employer] Tool Operator CONS 01/11/25 Transmitted Consult Discharge DISCHARGE 01/11/25 Transmitted 11:23 Cleanse Wound With LEONCIO 01/11/25 In Process Wound Clean 13:12 Vancomycin PHA 01/12/25 In Process 1.25gm/250ml 00:00 Vancomycin,Trough LAB 01/12/25 Logged 15:00 Vancomycin Per LEONCIO 01/12/25 In Process Pharmacy Protoc 16:00 Date of Service: Jan 12, 2025 Billing Provider: SHELLI MARTIN MD Common Visit Codes: [id number] INP/OBS CARE([facility]) SHELLI MARTIN MD Jan 12, 2025 09:44
[2025-01-12] MEDS: GADOTERATE MEG 10 MMOL/20ml INJ (0.5MMOL/ml) IV ONE (14:04)
[2025-01-12] MEDS: ACETAMINOPHEN 325 MG TAB PO PRN (22:40)
[2025-01-13] MEDS ORDERED: VANCOMYCIN 1GM/250ML KIT 250 ML IV SCH
[2025-01-13 01:00] VITALS: BP 127/68; PULSE 105; RESP 20; TEMP 98.4; O2SAT 93
== END 2025-01-13 01:25 | disposition short-term general hospital (02) | DRG 95 ==
LOC: CENTRAL 01-11 00:16
PROVIDERS: ADMIT Family Medicine; ATTEND Family Medicine
DX: G06.1 Intraspinal abscess and granuloma (principal); G95.29 Other cord compression; M46.22 Osteomyelitis of vertebra, cervical region; D72.829 Elevated white blood cell count, unspecified; I10 Essential (primary) hypertension; E11.69 Type 2 diabetes mellitus with other specified complication; Z90.49 Acquired absence of other specified parts of digestive tract; Z79.4 Long term (current) use of insulin
CPT/HCPCS: 36415; 70553; 72142; 80053; 80202; 82565; 82962; 84484; 85025; 87426; G0378; J0692; J1815

== ENCOUNTER 2025-06-04 13:43 | Inpatient (IN) | payer BC ==
[~2025-06-04] VITALS: Ht 177.8 cm; Wt 106.2 kg
[2025-06-04] MEDS: SODIUM CHLOR 0.9% PF (SALINE LOCK) 10ML VIAL/SYR IV SCH
--- NOTE | 2025-06-04 14:07 | ED.PDOC ---
History of Present Illness HPI Comments 34-year-old male presents to the ER with no prior medical history to chief complaint of a wound check. Patient is bed-bound and was brought right in by a wheelchair. Patient reports on going to a rehab center or a bedsore which the patient has had since December, they informed the patient that the bedsores is not healing right and to go to the ER. The patient's PCP is Dr. Beal who brought pt here to be admitted. Denies chills, fever, N/V/D, SOB, CP. No other associated symptoms, modifiers, recent injuries or sick contacts present at this time. Chief Complaint: Wound Check Time Seen by MD: 14:00 Primary Care Provider: UNKNOWN Reviewed Notes: Nurses Notes, Medications, Allergies Allergies: Coded Allergies: NO KNOWN ALLERGIES (Unverified , 01/11/25) Home Meds No Active Prescriptions or Reported Meds Information Source: Patient Mode of Arrival: Wheelchair Severity: Moderate Timing: Months Duration: Since onset Prehospital treatment: None Past Medical History PAST MEDICAL HISTORY: Denies Surgical History: Denies all surgeries Family History Family History: Reviewed,noncontributory to illness, Unknown Social History Smoker: Non-Smoker Alcohol: Denies ETOH Use Drugs: Denies Drug Use Lives In: Home Constitutional: denies: chills, diaphoresis, fatigue, fever, malaise, sweats, weakness, others EENTM: denies: blurred vision, double vision, ear bleeding, ear discharge, ear drainage, ear pain, ear ringing, eye pain, eye redness, hearing loss, mouth pain, mouth swelling, nasal discharge, nose bleeding, nose congestion, nose pain, photophobia, tearing, throat pain, throat swelling, voice changes, others Respiratory: denies: cough, hemoptysis, orthopnea, SOB at rest, shortness of breath, SOB with excertion, stridor, wheezing, others Cardiovascular: denies: chest pain, dizzy spells, diaphoresis, Dyspnea on exertion, edema, irregular heart beat, left arm pain, lightheadedness, palpitations, PND, syncope, others Gastrointestinal: denies: abdomen distended, abdominal pain, blood streaked bowels, constipated, diarrhea, dysphagia, difficulty swallowing, hematemesis, melena, nausea, poor appetite, poor fluid intake, rectal bleeding, rectal pain, vomiting, others Genitourinary: denies: burning, dysuria, flank pain, frequency, hematuria, incontinence, penile discharge, penile sore, pain, testicle pain, testicle swelling, urgency, others Neurological: denies: dizziness, fainting, headache, left sided numbness, left sided weakness, numbness, paresthesia, pre-existing deficit, right sided numbness, right sided weakness, seizure, speech problems, tingling, tremors, weakness, others Musculoskeletal: denies: back pain, gout, joint pain, joint swelling, muscle pain, muscle stiffness, neck pain, others Integumetry: reports: wounds (In the sacral area); denies: bruises, change in color, change in hair/nails, dryness, laceration, lesions, lumps, rash, others Allergic/Immunocompromised: denies: Difficulty Healing, Frequent Infections, Hives, Itching, others Hematologic/Lymphatic: denies: anemia, blood clots, easy bleeding, easy bruising, swollen glands, others Endocrine: denies: excessive hunger, excessive sweating, excessive thirst, excessive urination, flushing, intolerance to cold, intolerance to heat, unexplained weight gain, unexplained weight loss, others Psychiatric: denies: anxiety, bipolar disorder, depression, hopeless, panic disorder, schizophrenia, sleepless, suicidal, others All Other Systems: Reviewed and Negative Physical Exam Exam Comments Patient has a sacral area wound with no bleeding, no drainage General Appearance: No Apparent Distress, Normal HEENT: Normal ENT Inspection, Pharynx Normal, TMs Normal Neck: Full Range of Motion, Non-Tender, Normal, Normal Inspection Respiratory: Chest Non-Tender, Lungs Clear, No Accessory Muscle Use, No Respiratory Distress, Normal Breath Sounds Cardiovascular: No Edema, No JVD, No Murmur, No Gallop, Normal Peripheral Pulses, Regular Rate/Rhythm Breast Exam: Deferred Gastrointestinal: No Organomegaly, Non Tender, No Pulsatile Mass, Normal Bowel Sounds, Soft Genitalia: Deferred Pelvic: Deferred Rectal: Deferred Extremities: No calf tenderness, Normal capillary refill, Normal inspection, Normal range of motion, Non-tender, No pedal edema Musculoskeletal : Apperance: Normal Neurologic: Alert, event marketing specialist II-XII nml as Tested, No Motor Deficits, Normal Affect, Normal Mood, No Sensory Deficits Cerebellar Function: Normal Reflexes: Normal Skin: Dry, Normal Color, Warm Lymphatic: No Adenopathy Was a procedure done? Was a procedure done?: No Differential Dx Considerations may include: decubitus ulcer, rectal cutaneous fistula, cellulitis, abscess, necrotizing fasciitis, osteomyelitis X-Ray, Labs, Meds, VS Vital Signs Date Time Temp Pulse Resp B/P (MAP) Pulse Ox O2 Delivery O2 Flow Rate FiO2 06/04/25 13:54 97.5 93 17 134/93 (107) 97 97.5 Time of 1ST Reevaluation: 14:30 Reevaluation 1ST: Unchanged Patient Education/Counseling: Diagnosis, Treatment, Prognosis, Need For Follow Up Family Education/Counseling: No Family Present SEPSIS Sepsis Screen Date sepsis recognized/suspect: Jun 04, 2025 Time Sepsis recognized/suspect: 1343 Recent Procedure: No On Antibiotic Therapy: No Respiratory Rate >20: No Heart Rate >90: No Temp<36 C (96.8 F) or >38.3 C: No SBP <90 or MAP <65 mmHG: No New Acute Mental Status Change: No Is the patient on CPAP, BIPAP,: No Physician Orders Complete Blood Count (06/04/25 13:57) Basic Metabolic Panel (06/04/25 13:57) Vital Signs Date Time Temp Pulse Resp B/P (MAP) Pulse Ox O2 Delivery O2 Flow Rate FiO2 06/04/25 13:54 97.5 93 17 134/93 (107) 97 97.5 Departure 1 Departure Time of Disposition: 14:17 Impression: Primary Impression: Wound of sacral region Qualified Codes: S31.000A - Unspecified open wound of lower back and pelvis without penetration into retroperitoneum, initial encounter Disposition: 09 ADMITTED INPATIENT Admit to: Med Surg Condition: Serious e-Prescriptions No Active Prescriptions or Reported Meds Discharged With: Self Critical Care Note Critical Care Time?: No Stability Stability form required: No I personally scribed for ROSIO ADAMS MD ([email or web address]) on 06/04/25 at 14:07. Electronically submitted by Omari Sorto ([email or web address]). ROSIO ADAMS MD Jun 04, 2025 14:07
[2025-06-04 14:44] LABS: Hematocrit 40.5 % (41.0-53.0); Hemoglobin 13.8 g/dL (13.5-17.5); Mean Corpuscular Hemoglobin 28.6 pg (28.0-32.0); Mean Corpuscular Volume 84.0 fL (80.0-100.0); Nucleated Red Blood Cells % 0.1 %
[2025-06-04 14:51] LABS: Chloride 105 mmol/L (98-107); Potassium 3.8 mmol/L (3.5-5.1); Sodium 141 mmol/L (136-145)
[2025-06-04 14:52] LABS: Anion Gap 8 (5-15); Calcium 10.1 mg/dL (8.7-10.4); Carbon Dioxide 28 mmol/L (20-31)
[2025-06-04 14:57] LABS: BUN/Creatinine Ratio 22.2 (10.0-20.0); Blood Urea Nitrogen 14 mg/dL (9-23); Glucose 103 mg/dL (74-106)
[2025-06-04] MEDS ORDERED: ACETAMINOPHEN 325 MG TAB PO PRN (15:45)
[2025-06-04] MEDS ORDERED: ONDANSETRON HCL 4 MG/2 ML VIAL IV PRN (15:45)
[2025-06-04] MEDS ORDERED: NITROGLYCERIN 0.4 MG SL TAB SL PRN (15:45)
[2025-06-04] MEDS ORDERED: MORPHINE SULFATE INJ 2 MG/ml SYRG IV PRN ×2 (15:45)
[2025-06-04] MEDS ORDERED: VANCOMYCIN PER PHARMACY 0 MG IV SCH (16:00)
[2025-06-04] MEDS ORDERED: DEXTROSE (50%) 50ML SYRG IV PRN (16:15)
[2025-06-04] MEDS ORDERED: hydrALAZINE HCL 20 MG/ML VL IV PRN (16:15)
--- NOTE | 2025-06-04 16:18 | DVHHPRES ---
History of Present Illness Resident Creating Document: MIRELLA SHEN RESIDENT History of Present Illness Anjum Cain is 34-year-old male with a PMH of type 2 DM, HTN presented to the ED after being sent by his PCP for the wound evaluation on the back. Patient reported in December he underwent an some cyst surgery in the cervical region at the time he noted to have a sacral ulcer and he was on rehabilitation for 4-5 months after the surgery for the spine and he said the wound has been taken care by the people in the facility but no systemic signs of infection or inflammation noted and patient was recently discharged from the facility. Today patient went to the primary clinic to establish the care, on examination they noted a purulent drainage from fistula as like tract from the sacral wound but no signs of pain, redness, fever, chills, recent trauma and other associated symptoms so they brought him to ED for further evaluation and management. Patient also reported initially he is bed-bound but not anymore now he can able to walk with the help of walker. PMH: Type 2 DM, HTN PSH: Recent cervical spine surgery Family history noncontributory Social history: Lives at home. Denies smoking, alcohol and other drug abuse Allergies: No known allergies Home medications: Metformin diabetes but unable to recall medications for high blood pressure Patient seen and examined at the bedside. Patient does not have any new complaints other than stated as in HPI and rest of ROS is negative. Review of Systems Allergies: Coded Allergies: NO KNOWN ALLERGIES (Unverified , 01/11/25) Medications Current Medications Medications Dose Ordered Sig/Anita Route Start Time Stop Time Status Last Admin Dose Admin Sodium Chloride 10 ml Q8HR IV 06/04/25 22:00 UNV Ondansetron HCl 4 mg Q4HP PRN IV 06/04/25 15:45 UNV Enoxaparin Sodium 40 mg DAILY SC 06/05/25 10:00 UNV Acetaminophen 650 mg Q6HP PRN PO 06/04/25 15:45 UNV Morphine Sulfate 2 mg Q4HPRN PRN IV 06/04/25 15:45 UNV Nitroglycerin 0.4 mg Q5MINP PRN SL 06/04/25 15:45 UNV Morphine Sulfate 2 mg Q30M PRN IV 06/04/25 15:45 UNV Pantoprazole Sodium 40 mg DAILY IV 06/05/25 10:00 UNV Piperacillin Sod/ Tazobactam Sod 100 ml @ 25 mls/hr Q6HR IV 06/04/25 18:00 UNV Vancomycin HCl 0 ml @ 0 mls/hr UD IV 06/04/25 16:00 UNV Exam Vital Signs Vital Signs Date Time Temp Pulse Resp B/P (MAP) Pulse Ox O2 Delivery O2 Flow Rate FiO2 06/04/25 13:54 97.5 93 17 134/93 (107) 97 97.5 Exam Pt is lying on bed General Appearance: Alert, Oriented X3, Cooperative, Not in acute distress HEENT: Atraumatic, Mucous membranes moist/pink Respiratory: Clear to auscultation, Normal air movement, No added sounds Cardiovascular: Regular rate, Normal S1, Normal S2, No murmurs Abdominal: Active bowel sounds, Soft, no distention, no tenderness Extremities: No edema, Normal pulses, No tenderness/swelling Skin: fistulous tract with purulent drainage in sacrum but no tenderness and healed sacral ulcer Neuro: Muscle wasting noted, no sensory deficits weakness in left upper and lower extremities status post cervical surgery, walker dependent Psych/Mental Status: Mental status NL, Mood NL Nurse was there as information management officer during examination Labs/Xrays Labs Test 06/04/25 14:28 Range/Units White Blood Count 6.8 4.4-10.8 10^3/uL Red Blood Count 4.83 4.5-5.90 10^6/uL Hemoglobin 13.8 13.5-17.5 g/dL Hematocrit 40.5 L 41.0-53.0 % Mean Corpuscular Volume 84.0 80.0-100.0 fL Mean Corpuscular Hemoglobin 28.6 28.0-32.0 pg Mean Corpuscular Hemoglobin Concent 34.1 32.0-36.0 g/dL Red Cell Distribution Width 16.8 H 11.8-14.3 % Platelet Count 244 140-450 10^3/uL Mean Platelet Volume 7.4 6.9-10.8 fL Neutrophils (%) (Auto) 66.0 37.0-80.0 % Lymphocytes (%) (Auto) 25.4 10.0-50.0 % Monocytes (%) (Auto) 6.7 0.0-12.0 % Eosinophils (%) (Auto) 1.6 0.0-7.0 % Basophils (%) (Auto) 0.3 0.0-2.0 % Neutrophils # (Auto) 4.5 1.6-8.6 10 ^3/uL Lymphocytes # (Auto) 1.7 0.4-5.4 10 ^3/uL Monocytes # (Auto) 0.5 0-1.3 10 ^3/uL Eosinophils # (Auto) 0.1 0-0.8 10 ^3/uL Basophils # (Auto) 0 0-0.2 10 ^3/uL Nucleated Red Blood Cells 0.1 % Sodium Level 141 136-145 mmol/L Potassium Level 3.8 3.5-5.1 mmol/L Chloride Level 105 98-107 mmol/L Carbon Dioxide Level 28 20-31 mmol/L Anion Gap 8 5-15 Blood Urea Nitrogen 14 9-23 mg/dL Creatinine 0.63 L 0.700-1.30 mg/dL Glomerular Filtration Rate Calc 127 >90 mL/min BUN/Creatinine Ratio 22.2 H 10.0-20.0 Serum Glucose 103 74-106 mg/dL Calcium Level 10.1 8.7-10.4 mg/dL SEPSIS Sepsis Screen Date sepsis recognized/suspect: Jun 04, 2025 Time Sepsis recognized/suspect: 1342 Recent Procedure: No On Antibiotic Therapy: No Respiratory Rate >20: No Heart Rate >90: No Temp<36 C (96.8 F) or >38.3 C: No SBP <90 or MAP <65 mmHG: No New Acute Mental Status Change: No Is the patient on CPAP, BIPAP,: No Physician Orders Admit (06/04/25 15:37) Allergies (06/04/25 15:37) Code Status (06/04/25 15:37) Sodium Chloride Lock (Saline Lock Ns) (06/04/25 22:00) Ondansetron Hcl (Zofran) (06/04/25 15:45) Enoxaparin Sodium (Lovenox) (06/05/25 10:00) Complete Blood Count (06/05/25 04:00) Comprehensive Metabolic Panel (06/05/25 04:00) Condition: Fair (06/04/25 15:37) Acetaminophen Tablet (Tylenol Tablet) (06/04/25 15:45) Morphine Sulfate Injection (06/04/25 15:45) Nitroglycerin Sublingual (Ntrostat Subli (06/04/25 15:45) Morphine Sulfate Injection (06/04/25 15:45) Oxygen By Nasal Cannula (06/04/25 15:37) Stat Ekg For Chest Pain (06/04/25 15:37) Notify Of Changes From Base (06/04/25 15:37) Transplant Case Manager For 24 Hours (06/04/25 15:37) Emergency Dysrhythmia Protocol (06/04/25 15:37) Rhythm Strips Once Every Shift (06/04/25 15:37) Pantoprazole (Protonix) (06/05/25 10:00) Drug Screen (06/04/25 15:52) Urinalysis (06/04/25 15:52) C-Reactive Protein (06/04/25 15:52) Magnesium (06/04/25 15:52) PTPTT (06/04/25 15:52) Hemoglobin A1c (06/04/25 15:52) Erythrocyte Sedimentation Rate (06/04/25 15:52) Piperacillin-Tazob 3.375gm (Zosyn 3.375g (06/04/25 18:00) Vancomycin Per Pharmacy (06/04/25 16:00) * Wound Consult (06/04/25 ) Clean Wound (06/04/25 ) Wound Culture W/ Gs (06/04/25 15:52) Pelvis With Contrast Only (06/04/25 15:52) * Surgical Consult (06/04/25 ) Glucose Blood (Accu-Chek Comfort Curve T (06/04/25 17:00) Insulin R (Human) (Insulin R) (06/04/25 17:00) Dextrose 50% Syringe (06/04/25 16:15) Hydralazine Injection (Apresoline Inject (06/04/25 16:15) Consistent Carb(Ccho)Diabetes (06/04/25 Dinner) Vital Signs Date Time Temp Pulse Resp B/P (MAP) Pulse Ox O2 Delivery O2 Flow Rate FiO2 06/04/25 13:54 97.5 93 17 134/93 (107) 97 97.5 Laboratory Tests Test 06/04/25 14:28 White Blood Count 6.8 10^3/uL (4.4-10.8) Assessment/Plan Assessment/Plan # R/o sacral abscess/ osteomyelitis # sacral decubitus ulcer, unspecified stage - admit med surge - Zosyn and vancomycin empiric - wound consult and wound cultures - surgical consult - CT pelvis with the contrast, pending # ? Acute complicated UTI - evident on urinalysis - ordered urine bacterial culture - currently giving Zosyn # type 2 DM with HbA1c pending - continuously monitored and glucose - mild ISS # uncontrolled HTN - continuously monitor - hydralazine p.r.n. - obtain Home medications List GI PPX: Protonix VTE ppx: Lovenox Diet: NPO after midnight Goals of care addressed with the patient for more than 27 minutes: Full code status Case discussed with Dr. Magana,patient and nurse Plan discussed with: Patient My Orders Orders - MIRELLA SHEN RESIDENT Procedure Category Date Status Time Admit ADMIT 06/04/25 Transmitted 15:37 Allergies [facility] 06/04/25 In Process 15:37 Code Status CODE 06/04/25 Transmitted 15:37 Sodium Chloride Lock PHA 06/04/25 Logged (Saline Lock Ns) 22:00 Ondansetron Hcl PHA 06/04/25 Logged (Zofran) 15:45 Enoxaparin Sodium PHA 06/05/25 Logged (Lovenox) 10:00 Complete Blood Count LAB 06/05/25 Verified 04:00 Comprehensive LAB 06/05/25 Verified Metabolic Panel 04:00 Condition: Fair [facility] 06/04/25 In Process 15:37 Acetaminophen Tablet [facility] 06/04/25 Logged (Tylenol Tablet) 15:45 Morphine Sulfate PHA 06/04/25 Logged Injection 15:45 Nitroglycerin PHA 06/04/25 Logged Sublingual (Ntrostat 15:45 Morphine Sulfate [facility] 06/04/25 Logged Injection 15:45 Oxygen By Nasal RT 06/04/25 Transmitted Cannula 15:37 Stat Ekg For Chest [facility] 06/04/25 In Process Pain 15:37 Notify Of Changes [facility] 06/04/25 In Process From Base 15:37 Transplant Case Manager For [facility] 06/04/25 In Process 24 Hours 15:37 Emergency Dysrhythmia [facility] 06/04/25 In Process Protocol 15:37 Rhythm Strips Once [facility] 06/04/25 In Process Every Shift 15:37 Pantoprazole [facility] 06/05/25 Logged (Protonix) 10:00 Drug Screen LAB 06/04/25 Logged 15:52 Urinalysis LAB 06/04/25 Logged 15:52 C-Reactive Protein LAB 06/04/25 In Process 15:52 Magnesium LAB 06/04/25 In Process 15:52 PTPTT LAB 06/04/25 In Process 15:52 Hemoglobin A1c LAB 06/04/25 Logged 15:52 Erythrocyte LAB 06/04/25 Logged Sedimentation Rate 15:52 Piperacillin-Tazob PHA 06/04/25 Logged 3.375gm (Zosyn 3.375g 18:00 Vancomycin Per PHA 06/04/25 Logged Pharmacy 16:00 * Wound Consult CONS 06/04/25 Transmitted Clean Wound ED NURSING 06/04/25 Transmitted Wound Culture W/ Gs [facility] 06/04/25 Uncollected 15:[address] 06/04/25 Logged Only 15:52 * Surgical Consult CONS 06/04/25 Transmitted Glucose Blood PHA 06/04/25 Logged (Accu-Chek Comfort 17:00 Insulin R (Human) PHA 06/04/25 Logged (Insulin R) 17:00 Dextrose 50% Syringe PHA 06/04/25 Logged 16:15 Hydralazine Injection PHA 06/04/25 Logged (Apresoline Inject 16:15 Consistent DIET 06/04/25 Transmitted Carb(Ccho)Diabetes Dinner Date of Service: Jun 04, 2025 Billing Provider: CRISTIAN MAGANA MD Common Visit Codes: [id number] INP/OBS CARE ([facility]) MIRELLA SHEN RESIDENT Jun 04, 2025 16:18 CRISTIAN MAGANA MD Jun 05, 2025 18:19
[2025-06-04 16:23] LABS: Magnesium 2.0 mg/dL (1.6-2.6)
[2025-06-04 16:30] LABS: INR 0.97 (0.9-1.15); Partial Thromboplastin Time 27.1 SEC (24.5-34.5); Prothrombin Time 10.3 sec (9.3-11.8)
[2025-06-04] MEDS: IOHEXOL 300 MG/ML 100ML BOTTLE IJ ONE (16:37)
[2025-06-04] MEDS: InsuLIN REG 1unit/0.01ml Soln (100units/ml) SC SCH (17:00)
--- NOTE | 2025-06-04 17:19 | DVH ---
History: Sacral osteomyelitis and abscess Comparison Study: None Technique: Multidetector spiral CT of the pelvis was performed from iliac crests to pubic symphysis. 100 cc of intravenous contrast was administered during this examination. Portal venous imaging was obtained. Axial, coronal and sagittal multiplanar reformats were performed by the technologist on a separate workstation. Radiation Dose : CT Dose: CTDI volume is 21.84 mGy. Dose-length product is 709.81 mGy*cm Findings: There are destructive changes in the lower sacrum and coccyx with abscess formation extendi ng posteriorly. There is pre coccygeal soft tissue thickening as well which extends towards the poste rior wall of the rectum. Urinary bladder is intact. The prostate gland is intact. There is no free fluid present within the p leodan The sacroiliac joints, hip joints, and pubic symphysis are intact IMPRESSION: 1. There is osteomyelitis of the lower sacrum and coccyx with soft tissue abscess extending posterior ly and inferiorly and infiltrating the gluteal musculature. Although there is some pre coccygeal sof t tissue swelling no distinct abscess is seen posterior to the rectum END IMPRESSION:
[2025-06-04] MEDS: ACCU-CHEK COMFORT CURVE STRIP VI SCH (17:36)
[2025-06-04] MEDS: PIPERACILLIN-TAZOB 3.375GM 100 ML IV ONE (17:36)
[2025-06-04 19:40] LABS: Urine Protein, UAD 1+ (Negative)
[2025-06-04 19:49] LABS: Amphetamine Screen, Urine Neg (NEGATIVE); Barbiturate Scree,Urine Neg (NEGATIVE); Benzodiazephine Screen, Urine Neg (NEGATIVE); Cannabinoid Screen, Urine Neg (NEGATIVE); Cocaine Screen, Urine Neg (NEGATIVE); Opiate Scree,Urine Neg (NEGATIVE); Phencyclidine Screen, Urine Neg (NEGATIVE)
[2025-06-04 22:45] VITALS: BP 132/86; PULSE 104; RESP 18; TEMP 97.8; O2SAT 97
[2025-06-05] VITALS (8 sets, daily range): BP systolic 121–137; BP diastolic 79–100; PULSE 88–115; RESP 16–20; TEMP 97.5–98.5; O2SAT 94–99
[2025-06-05] MEDS: PIPERACILLIN-TAZOB 3.375GM 100 ML IV SCH
[2025-06-05 05:29] LABS: Hematocrit 39.2 % (41.0-53.0); Hemoglobin 13.2 g/dL (13.5-17.5); Mean Corpuscular Hemoglobin 28.0 pg (28.0-32.0); Mean Corpuscular Volume 82.9 fL (80.0-100.0); Nucleated Red Blood Cells % 0.1 %
[2025-06-05 05:43] LABS: Alanine Aminotransferase 18 U/L (7-40); Albumin 4.0 g/dL (3.2-4.8); Alkaline Phosphatase 100 U/L (46-116); Anion Gap 8 (5-15); BUN/Creatinine Ratio 20.6 (10.0-20.0); Blood Urea Nitrogen 13 mg/dL (9-23); Calcium 9.7 mg/dL (8.7-10.4); Carbon Dioxide 28 mmol/L (20-31); Chloride 107 mmol/L (98-107); Sodium 143 mmol/L (136-145); Total Protein 6.4 g/dL (5.7-8.2)
[2025-06-05 05:44] LABS: Bilirubin, Total 0.3 mg/dL (0.2-1.0)
[2025-06-05 05:49] LABS: Glucose 121 mg/dL (74-106); Potassium 3.5 mmol/L (3.5-5.1)
[2025-06-05] MEDS ORDERED: HEPARIN DRIP/D5W 100UNITS/ML 250 ML IV SCH (09:45)
[2025-06-05] MEDS ORDERED: ENOXAPARIN SOD 40 MG/0.4 ML SYRINGE SC SCH (10:00)
[2025-06-05] MEDS: PANTOPRAZOLE 40 MG/10 ML VIAL INJ IV SCH (10:02)
[2025-06-05] MEDS: HEPARIN SODIUM (PORCINE) 5000 UNITS/ML 1ML VIAL SC SCH (12:28)
--- NOTE | 2025-06-05 16:14 | DVHPNRES ---
Progress Note Date Seen: Jun 05, 2025 Resident Creating Document: ANETA BLANTON RESIDENT Medical Necessity Reason Pt with a Central, PICC or Fol: No Subjective Review of Systems History of Present Illness Anjum Cain is 34-year-old male with a PMH of type 2 DM, HTN presented to the ED after being sent by his PCP for the wound evaluation on the back. Patient reported in December he underwent an some cyst surgery in the cervical region at the time he noted to have a sacral ulcer and he was on rehabilitation for 4-5 months after the surgery for the spine and he said the wound has been taken care by the people in the facility but no systemic signs of infection or inflammation noted and patient was recently discharged from the facility. Today patient went to the primary clinic to establish the care, on examination they noted a purulent drainage from fistula as like tract from the sacral wound but no signs of pain, redness, fever, chills, recent trauma and other associated symptoms so they brought him to ED for further evaluation and management. Patient also reported initially he is bed-bound but not anymore now he can able to walk with the help of walker. PMH: Type 2 DM, HTN PSH: Recent cervical spine surgery Family history noncontributory Social history: Lives at home. Denies smoking, alcohol and other drug abuse Allergies: No known allergies Home medications: Metformin diabetes but unable to recall medications for high blood pressure 06/05 interval events: The patient was seen and examined at the bedside. Overnight events were reviewed. The patient denies any chest pain, shortness of breath, pain in the ulcer site,, fever, chills or any other complaints at this time. No new complaints reported. Review of the system is negative. Objective vital signs Vital Sign Date Time Temp Pulse Resp B/P (MAP) Pulse Ox O2 Delivery O2 Flow Rate FiO2 06/05/25 13:00 98.5 104 18 130/87 (101) 97 98.5 06/05/25 08:00 Room Air* 0 21 Total Intake and Output 06/04/25 06/04/25 06/05/25 15:00 23:00 07:00 Intake Total 100 ml Balance 100 ml medications Current Medications Medications Dose Ordered Sig/Anita Route Start Time Stop Time Status Last Admin Dose Admin Sodium Chloride 10 ml Q8HR IV 06/04/25 22:00 06/05/25 12:32 10 ML Ondansetron HCl 4 mg Q4HP PRN IV 06/04/25 15:45 Acetaminophen 650 mg Q6HP PRN PO 06/04/25 15:45 Morphine Sulfate 2 mg Q4HPRN PRN IV 06/04/25 15:45 Nitroglycerin 0.4 mg Q5MINP PRN SL 06/04/25 15:45 Morphine Sulfate 2 mg Q30M PRN IV 06/04/25 15:45 Pantoprazole Sodium 40 mg DAILY IV 06/05/25 10:00 06/05/25 10:02 40 MG Piperacillin Sod/ Tazobactam Sod 100 ml @ 25 mls/hr Q6HR IV 06/05/25 00:00 06/05/25 12:32 25 MLS/HR Vancomycin HCl 0 ml @ 0 mls/hr UD IV 06/04/25 16:00 Diagnostic Test (Pha) 1 strip ACHS 06/04/25 17:00 06/05/25 11:19 1 STRIP Insulin Human Regular ACHS SC 06/04/25 17:00 06/05/25 11:39 2 UNITS Dextrose 50 ml UD PRN IV 06/04/25 16:15 Hydralazine HCl 10 mg Q6HP PRN IV 06/04/25 16:15 Heparin Sodium/ Dextrose 250 ml @ 18.648 mls/ hr [id number] IV 06/05/25 09:45 UNV Heparin Sodium (Porcine) 5,000 units Q12HR SC 06/05/25 10:30 06/05/25 12:28 5,000 UNITS Vancomycin HCl 250 ml @ 200 mls/hr Q8H IV 06/05/25 15:00 Examination General Appearance: Alert, Oriented X3, Cooperative, Not in acute distress HEENT: Atraumatic, Mucous membranes moist/pink Respiratory: Clear to auscultation, Normal air movement, No added sounds Cardiovascular: Regular rate, Normal S1, Normal S2, No murmurs Abdominal: Active bowel sounds, Soft, no distention, no tenderness Extremities: No edema, Normal pulses, No tenderness/swelling Skin: fistulous tract with purulent drainage in sacrum but no tenderness and healed sacral ulcer, bandage in place Neuro: Muscle wasting noted, no sensory deficits, weakness in left upper and lower extremities status post cervical surgery, walker dependent Psych/Mental Status: Mental status NL, Mood NL laboratory and microbiology Laboratory Tests 06/05/25 04:32 Test 06/05/25 04:32 Range/Units Serum Glucose 121 H 74-106 mg/dL Labs and/or images reviewed: Labs reviewed by me, Image(s) reviewed by me Problem List/Assessment/Plan Problem List/Assessment/Plan # Sacral abscess/ osteomyelitis # sacral decubitus ulcer, unspecified stage - Zosyn and vancomycin empiric - wound consult and wound cultures - surgical consult - CT pelvis with the contrast, There is osteomyelitis of the lower sacrum and coccyx with soft tissue abscess extending posteriorly and inferiorly and infiltrating the gluteal musculature. Although there is some pre coccygeal soft tissue swelling no distinct abscess is seen posterior to the rectum # ? Acute complicated UTI - evident on urinalysis - ordered urine bacterial culture - currently giving Zosyn # type 2 DM with HbA1c pending - continuously monitored and glucose - mild ISS # uncontrolled HTN - continuously monitor - hydralazine p.r.n. - obtain Home medications List GI PPX: Protonix VTE ppx: Lovenox Diet: NPO after midnight Goals of care addressed with the patient for more than 27 minutes: Full code status Case discussed with Dr. Magana,patient and nurse Plan discussed with: Patient, Other (RN) My Orders My Orders Orders - ANETA BLANTON Procedure Category Date Status Time Pt Request For Service PT 06/05/25 Logged 14:03 Date of Service: Jun 05, 2025 Billing Provider: CRISTIAN MAGANA MD Common Visit Codes: [id number] INP/OBS CARE(HIGH) ANETA BLANTON Jun 05, 2025 16:14 CRISTIAN MAGANA MD Jun 05, 2025 18:19
[2025-06-05] MEDS: VANCOMYCIN 1.25gm/250mL PREMIX or KIT IV SCH (17:50)
[2025-06-06] VITALS (7 sets, daily range): BP systolic 120–144; BP diastolic 80–98; PULSE 89–121; RESP 16–21; TEMP 97.4–98.1; O2SAT 96–98
[2025-06-06 10:40] LABS: Hepatitis C Antibody Negative (Negative)
[2025-06-06 12:17] LABS: Hematocrit 38.1 % (41.0-53.0); Hemoglobin 13.2 g/dL (13.5-17.5); Mean Corpuscular Hemoglobin 28.7 pg (28.0-32.0); Mean Corpuscular Volume 82.8 fL (80.0-100.0); Nucleated Red Blood Cells % 0.1 %
[2025-06-06 12:23] LABS: Alanine Aminotransferase 19 U/L (7-40); Albumin 4.2 g/dL (3.2-4.8); Alkaline Phosphatase 99 U/L (46-116); Anion Gap 8 (5-15); BUN/Creatinine Ratio 14.9 (10.0-20.0); Blood Urea Nitrogen 10 mg/dL (9-23); Calcium 9.6 mg/dL (8.7-10.4); Carbon Dioxide 27 mmol/L (20-31); Potassium 4.1 mmol/L (3.5-5.1); Sodium 144 mmol/L (136-145); Total Protein 6.6 g/dL (5.7-8.2)
[2025-06-06 12:24] LABS: Bilirubin, Total 0.4 mg/dL (0.2-1.0)
[2025-06-06 12:26] LABS: Chloride 109 mmol/L (98-107); Glucose 135 mg/dL (74-106)
[2025-06-06] MEDS ORDERED: fentaNYL CITRATE 100 MCG/2 ML VL ONE (14:29)
[2025-06-06] MEDS ORDERED: MIDAZOLAM HCL 2MG/2ML 2ml VIAL (1mg/ml) ONE (14:29)
--- NOTE | 2025-06-06 14:30 | DVHINCON2 ---
Date of service: Jun 06, 2025 Reason for Consultation Drainage from sacral wound History of Present Illness HPI 34-year-old male presented to the ED after being sent by his PCP for the wound evaluation on the back. Patient states in December he underwent surgery for a cyst in cervical region and was recovering in a facility where the sacral wound was being treated as well. Patient has purulent drainage from the sacral wound. Home Meds No Active Prescriptions or Reported Meds Past Medical History Cardiac: HTN Pulmonary: No pertinent Hx Central Nervous System: No pertinent Hx GI: No pertinent Hx Hemotology/Oncology: No pertinent Hx Hepatobiliary: No pertinent Hx Psychiatric: No pertinent Hx Musculoskeletal: No pertinent Hx Rheumotologic: No pertinent Hx Infectious Disease: No peritnent Hx ENT: No pertinent Hx Renal/: No pertinent Hx Endocrine: NIDDM Dermatology: No pertinent Hx Others cervical spin surgery Smoker: No Hx (Negative) Alocohol: None Drugs: None Lives with: With family Review of Systems Constitutional: No symptom reported Ears, Nose, & Throat: No symptom reported Eyes: No symptom reported Pulmonary/Respiratory: No symptom reported Cardiovascular: No symptom reported Gastrointestinal: No symptom reported Genitourinary: No symptom reported Musculoskeletal: No symptom reported Skin: Other (sacral wound ) Psychiatric: No symptom reported Endocrine: No symptom reported Hemotologic/Lymphatic: No symptom reported H&P Exam Vital Signs Vital Signs Date Time Temp Pulse Resp B/P (MAP) Pulse Ox O2 Delivery O2 Flow Rate FiO2 06/06/25 12:56 97.4 100 18 125/80 (95) 96 97.4 06/06/25 08:00 Room Air* 0 21 General Appeara: Well developed, Well nourished Head Exam: Normal inspection Neck Exam: Normal inspection, Non-tender Nasal Exam: Normal inspection Rectal Exam: Deferred Tendon/ Neuro: Normal sensation [employer] Exam: Normal hearing, Normal speech Skin Exam: Other (sacral wound ) Wounds sacral wound / with drainage Labs/Xrays Labs Test 06/06/25 11:56 06/06/25 11:20 06/05/25 04:32 06/04/25 19:27 Range/Units White Blood Count 5.3 # 4.4-10.8 10^3/uL Red Blood Count 4.60 4.5-5.90 10^6/uL Hemoglobin 13.2 L 13.5-17.5 g/dL Hematocrit 38.1 L 41.0-53.0 % Mean Corpuscular Volume 82.8 80.0-100.0 fL Mean Corpuscular Hemoglobin 28.7 28.0-32.0 pg Mean Corpuscular Hemoglobin Concent 34.7 32.0-36.0 g/dL Red Cell Distribution Width 17.2 H 11.8-14.3 % Platelet Count 201 140-450 10^3/uL Mean Platelet Volume 7.5 6.9-10.8 fL Neutrophils (%) (Auto) 64.6 37.0-80.0 % Lymphocytes (%) (Auto) 24.6 10.0-50.0 % Monocytes (%) (Auto) 7.4 0.0-12.0 % Eosinophils (%) (Auto) 2.9 0.0-7.0 % Basophils (%) (Auto) 0.5 0.0-2.0 % Neutrophils # (Auto) 3.4 1.6-8.6 10 ^3/uL Lymphocytes # (Auto) 1.3 0.4-5.4 10 ^3/uL Monocytes # (Auto) 0.4 0-1.3 10 ^3/uL Eosinophils # (Auto) 0.2 0-0.8 10 ^3/uL Basophils # (Auto) 0 0-0.2 10 ^3/uL Nucleated Red Blood Cells 0.1 % Sodium Level 144 136-145 mmol/L Potassium Level 4.1 3.5-5.1 mmol/L Chloride Level 109 H 98-107 mmol/L Carbon Dioxide Level 27 20-31 mmol/L Anion Gap 8 5-15 Blood Urea Nitrogen 10 9-23 mg/dL Creatinine 0.67 L 0.700-1.30 mg/dL Glomerular Filtration Rate Calc 125 >90 mL/min BUN/Creatinine Ratio 14.9 10.0-20.0 Serum Glucose 135 H 74-106 mg/dL Calcium Level 9.6 8.7-10.4 mg/dL Total Bilirubin 0.4 0.2-1.0 mg/dL Aspartate Amino Transferase (AST) 13 13-40 U/L Alanine Aminotransferase (ALT) 19 7-40 U/L Alkaline Phosphatase 99 46-116 U/L Total Protein 6.6 5.7-8.2 g/dL Albumin 4.2 3.2-4.8 g/dL POC Glucose 135 H 70-106 mg/dl Random Vancomycin Level < 3.0 L 5-10 ug/mL Hepatitis B Surface Antibody Positive H Negative Hepatitis C Antibody Negative Negative Urine Color Yellow Yellow Urine Clarity Turbid H Clear Urine pH 5.5 5.0-9.0 Urine Specific [place] > 1.050 H 1.001-1.035 Urine Protein 1+ H Negative Urine Ketones Negative Negative Urine Blood Negative Negative /uL Urine Nitrite Negative Negative Urine Bilirubin Negative Negative Urine Urobilinogen Normal Negative mg/dL Urine Leukocyte Esterase Negative Negative /uL Urine RBC 9 0 - 3 /hpf Urine Microscopic WBC 13 H 0-3 /HPF Urine Squamous Epithelial Cells None seen <5 /hpf Urine Calcium Oxalate Crystals Few None Seen Urine Bacteria None seen None Seen /hpf Urine Mucus Moderate None Seen Urine Glucose Normal Normal mg/dL Urine Opiates Screen Neg NEGATIVE Urine Fentanyl Screen Neg NEGATIVE Urine Barbiturates Screen Neg NEGATIVE Urine Phencyclidine Screen Neg NEGATIVE Urine Amphetamines Screen Neg NEGATIVE Urine Benzodiazepines Screen Neg NEGATIVE Urine Cocaine Screen Neg NEGATIVE Urine Cannabinoids Screen Neg NEGATIVE Test 06/04/25 17:03 06/04/25 14:28 Range/Units Erythrocyte Sedimentation Rate 28 H 0-20 mm/hr Hemoglobin A1c 5.6 <5.7 % A1C Prothrombin Time 10.3 9.3-11.8 sec Prothrombin Time INR 0.97 0.9-1.15 Activated Partial Thromboplast Time 27.1 24.5-34.5 SEC Magnesium Level 2.0 1.6-2.6 mg/dL C-Reactive Protein High Sensitivity 0.24 <1.0 mg/dL Microbiology Date/Time Source Procedure Growth Status 06/05/25 13:15 Voided Urine Urine Culture - Preliminary Resulted 06/04/25 23:30 Sacrum Gram Stain Pending Resulted 06/04/25 23:30 Sacrum Wound Culture - Preliminary Resulted Assessment/Plan Problem List: (1) Wound of sacral region Plan sacral wound with drainage Plan: incision and drainage of sacral wound Plan discussed with: Patient, Other (Dr. Farooq) Visit Coding Surgery Date of Service if different f: Jun 06, 2025 Billing Provider: WALKER FAROOQ MD Surgery Visit Codes: 38837 - INP CONSULT <80 MIN MASHA SIDDIQUI SNOW PLOW TRACTOR OPERATOR Jun 06, 2025 14:30
[2025-06-06] MEDS ORDERED: PROPOFOL 10 MG/ML 20 ML IV ONE (14:49)
[2025-06-06] MEDS: ceFAZolin 1GM VL ONE (14:51)
[2025-06-06] MEDS ORDERED: hydrALAZINE HCL 20 MG/ML VL IV PRN (15:00)
[2025-06-06] MEDS: ONDANSETRON HCL 4 MG/2 ML VIAL IV ONE (15:00)
[2025-06-06] MEDS ORDERED: MIDAZOLAM HCL 2MG/2ML 2ml VIAL (1mg/ml) IV PRN (15:00)
[2025-06-06] MEDS ORDERED: MORPHINE SULFATE 4 MG/ML SYR/VIAL IV PRN (15:00)
[2025-06-06] MEDS ORDERED: HYDROmorphone HCL 2 MG/ML VL/or syr IV PRN (15:00)
[2025-06-06] MEDS ORDERED: KETAMINE 50mg/ML 1ml syringe ONE (15:11)
--- NOTE | 2025-06-06 15:50 | DVHOP ---
DATE OF SURGERY: 06/06/2025 PREOPERATIVE DIAGNOSIS: Sinus drainage from sacral wound. 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 SURGEON: Kam Farooq MD BUSINESS OPERATIONS CONSULTANT: David Cummins. ANESTHESIA: General, Dr. Resendez PROCEDURE: Debridement of non-healed pilonidal surgical site. DESCRIPTION OF PROCEDURE: The patient was taken to the operating room and placed in lateral decubitus position. Anesthesia was administered. The skin was prepped and draped. There was evidence of previous surgery on pilonidal cyst and sinus extending from the superior aspect of the sacrum to the right and left buttocks in a Y-shaped distribution. Following preparation of the skin, a probing of the small opening, which measured approximately 5 mm in diameter, demonstrated nonhealing of a wound extending from what normally would be the pilonidal sinus or cyst to the buttocks. The wound is 7 cm in depth, 8-10 cm in length, and 5 cm in width. The wound was enlarged and edges of the nonhealing sinus were cauterized. The patient's tunneled wound from previous surgery was debrided of devitalized tissue. Subsequently to the debridement, hemostasis was accomplished and the wound was pulse lavaged with 3 liters of saline containing antibiotic. The pulse lavage was followed by further inspection for hemostasis, which was found to be complete. A small amount of hemostatic snow was introduced into the cavity and a wound VAC was applied in a horizontal fashion over the wound. The patient remained stable throughout the procedure and left the operating room following an accurate needle and sponge counts. His mother, Silvana, was thoroughly informed at [phone]. MD DIANA Ash/KATHARINA TID: [id number] RECEIPT: [id number]
--- NOTE | 2025-06-06 19:15 | DVHPNRES ---
Progress Note Date Seen: Jun 06, 2025 Resident Creating Document: ANETA BLANTON RESIDENT Medical Necessity Reason Pt with a Central, PICC or Fol: No Subjective Review of Systems History of Present Illness Anjum Cain is 34-year-old male with a PMH of type 2 DM, HTN presented to the ED after being sent by his PCP for the wound evaluation on the back. Patient reported in December he underwent an some cyst surgery in the cervical region at the time he noted to have a sacral ulcer and he was on rehabilitation for 4-5 months after the surgery for the spine and he said the wound has been taken care by the people in the facility but no systemic signs of infection or inflammation noted and patient was recently discharged from the facility. Today patient went to the primary clinic to establish the care, on examination they noted a purulent drainage from fistula as like tract from the sacral wound but no signs of pain, redness, fever, chills, recent trauma and other associated symptoms so they brought him to ED for further evaluation and management. Patient also reported initially he is bed-bound but not anymore now he can able to walk with the help of walker. PMH: Type 2 DM, HTN PSH: Recent cervical spine surgery Family history noncontributory Social history: Lives at home. Denies smoking, alcohol and other drug abuse Allergies: No known allergies Home medications: Metformin diabetes but unable to recall medications for high blood pressure 06/06 interval events: The patient was seen and examined at the bedside. Overnight events were reviewed. The patient denies any chest pain, shortness of breath, pain in the ulcer site,, fever, chills or any other complaints at this time. No new complaints reported. Review of the system is negative. Objective vital signs Vital Sign Date Time Temp Pulse Resp B/P (MAP) Pulse Ox O2 Delivery O2 Flow Rate FiO2 06/06/25 16:05 107 17 139/98 (112) 97 06/06/25 15:40 Room Air 100 06/06/25 15:30 7.0 06/06/25 15:30 97.3 97.3 Total Intake and Output 06/05/25 06/05/25 06/06/25 15:00 23:00 07:00 Intake Total 100 ml 900 ml 400 ml Output Total 1150 ml Balance 100 ml 900 ml -750 ml medications Current Medications Medications Dose Ordered Sig/Anita Route Start Time Stop Time Status Last Admin Dose Admin Sodium Chloride 10 ml Q8HR IV 06/04/25 22:00 06/06/25 11:21 10 ML Ondansetron HCl 4 mg Q4HP PRN IV 06/04/25 15:45 Acetaminophen 650 mg Q6HP PRN PO 06/04/25 15:45 Morphine Sulfate 2 mg Q4HPRN PRN IV 06/04/25 15:45 Nitroglycerin 0.4 mg Q5MINP PRN SL 06/04/25 15:45 Morphine Sulfate 2 mg Q30M PRN IV 06/04/25 15:45 Pantoprazole Sodium 40 mg DAILY IV 06/05/25 10:00 06/06/25 10:35 40 MG Piperacillin Sod/ Tazobactam Sod 100 ml @ 25 mls/hr Q6HR IV 06/05/25 00:00 06/06/25 17:20 25 MLS/HR Vancomycin HCl 0 ml @ 0 mls/hr UD IV 06/04/25 16:00 Diagnostic Test (Pha) 1 strip ACHS 06/04/25 17:00 06/06/25 17:19 1 STRIP Insulin Human Regular ACHS SC 06/04/25 17:00 06/06/25 17:27 4 UNITS Dextrose 50 ml UD PRN IV 06/04/25 16:15 Hydralazine HCl 10 mg Q6HP PRN IV 06/04/25 16:15 Heparin Sodium/ Dextrose 250 ml @ 18.648 mls/ hr [id number] IV 06/05/25 09:45 UNV Heparin Sodium (Porcine) 5,000 units Q12HR SC 06/05/25 10:30 06/05/25 21:51 5,000 UNITS Vancomycin HCl 250 ml @ 200 mls/hr Q8H IV 06/05/25 15:00 06/06/25 06:18 200 MLS/HR Examination General Appearance: Alert, Oriented X3, Cooperative, Not in acute distress HEENT: Atraumatic, Mucous membranes moist/pink Respiratory: Clear to auscultation, Normal air movement, No added sounds Cardiovascular: Regular rate, Normal S1, Normal S2, No murmurs Abdominal: Active bowel sounds, Soft, no distention, no tenderness Extremities: No edema, Normal pulses, No tenderness/swelling Skin: Wound Vac in place Neuro: Muscle wasting noted, no sensory deficits, weakness in left upper and lower extremities status post cervical surgery, walker dependent Psych/Mental Status: Mental status NL, Mood NL laboratory and microbiology Laboratory Tests 06/06/25 11:56 Test 06/06/25 11:56 Range/Units Serum Glucose 135 H 74-106 mg/dL Microbiology Date/Time Source Procedure Growth Status 06/05/25 13:15 Voided Urine Urine Culture - Preliminary Resulted 06/04/25 23:30 Sacrum Gram Stain - Final Resulted 06/04/25 23:30 Sacrum Wound Culture - Preliminary Resulted Labs and/or images reviewed: Labs reviewed by me, Image(s) reviewed by me Problem List/Assessment/Plan Problem List/Assessment/Plan # Sacral abscess/ osteomyelitis # sacral decubitus ulcer, unspecified stage # non-healed pilonidal cyst And sinus # S/P Debridement of non-healed pilonidal surgical site on 06/06/2025 - Zosyn and vancomycin empiric - wound consult and wound cultures - surgery is following - CT pelvis with the contrast, There is osteomyelitis of the lower sacrum and coccyx with soft tissue abscess extending posteriorly and inferiorly and infiltrating the gluteal musculature. Although there is some pre coccygeal soft tissue swelling no distinct abscess is seen posterior to the rectum # ? Acute complicated UTI - evident on urinalysis - ordered urine bacterial culture - currently giving Zosyn # type 2 DM with HbA1c pending - continuously monitored and glucose - mild ISS # uncontrolled HTN - continuously monitor - hydralazine p.r.n. - obtain Home medications List GI PPX: Protonix VTE ppx: Lovenox Diet: Regular Goals of care addressed with the patient for 20 minutes: Full code status Case discussed with Dr. Ibrahim,patient and nurse Plan discussed with: Patient, Other (RN) Dietary Evaluation Review Comments: 1) Dev 1 pk BID 2) Vit C 500mg BID, zinc sulfate 220mg BID x 10 days, MVI w mineral 1 tab daily 3) CCHO 75gm + 2gm Na diet Expected Outcomes/Goals: Wound to improve blood glucose WNL Fu 3-5 days Addendum Addendum Addendum I was physically present for the cruz portions of the service provided to patient by THE RESIDENT. I have reviewed the documentation, discussed the case with resident and agree with the resident's documentation except as noted. Also the patient's clinical case was discussed with the patient's nurse. This medical document was created using an electronic medical record system with computerized dictation system. Although this document has been carefully reviewed, there might still be some phonetic and typographical errors. These areas are purely typographical due to imperfections of the software programs, and do not reflect any compromise in the patient's medical care. Late signature. Date of Service: Jun 06, 2025 Billing Provider: INGE IBRAHIM MD Common Visit Codes: [id number] INP/OBS CARE(HIGH) Secondary Visit Codes: [id number] CARE PLAN 30 MINUTES (20 minutes) ANETA BLANTON RESIDENT Jun 06, 2025 19:15 MIRELLA SHEN RESIDENT Jun 06, 2025 19:31 INGE IBRAHIM MD Jun 09, 2025 04:52
[2025-06-07] VITALS (7 sets, daily range): BP systolic 115–134; BP diastolic 71–94; PULSE 107–124; RESP 17–20; TEMP 97.5–98.6; O2SAT 96–98
[2025-06-07 06:09] LABS: Chloride 106 mmol/L (98-107); Potassium 4.1 mmol/L (3.5-5.1); Sodium 140 mmol/L (136-145)
[2025-06-07 06:10] LABS: Anion Gap 10 (5-15); Calcium 10.0 mg/dL (8.7-10.4); Carbon Dioxide 24 mmol/L (20-31)
[2025-06-07 06:16] LABS: BUN/Creatinine Ratio 17.9 (10.0-20.0); Blood Urea Nitrogen 12 mg/dL (9-23)
[2025-06-07 06:17] LABS: Glucose 209 mg/dL (74-106)
[2025-06-07 07:19] LABS: Hematocrit 39.2 % (41.0-53.0); Hemoglobin 13.2 g/dL (13.5-17.5); Mean Corpuscular Hemoglobin 28.3 pg (28.0-32.0); Mean Corpuscular Volume 83.9 fL (80.0-100.0); Nucleated Red Blood Cells % 0.2 %
--- NOTE | 2025-06-07 10:01 | DVHPN2 ---
Progress Note Date Seen: Jun 07, 2025 Medical Necessity Reason Pt with a Central, PICC or Fol: No Objective vital signs Vital Sign Date Time Temp Pulse Resp B/P (MAP) Pulse Ox O2 Delivery O2 Flow Rate FiO2 06/07/25 08:08 Room Air* 0 21 06/07/25 05:00 97.5 107 20 128/80 (96) 97 97.5 Total Intake and Output 06/06/25 06/06/25 06/07/25 15:00 23:00 07:00 Intake Total 375 ml 125 ml 350 ml Output Total 450 ml 725 ml Balance 375 ml -325 ml -375 ml medications Current Medications Medications Dose Ordered Sig/Anita Route Start Time Stop Time Status Last Admin Dose Admin Sodium Chloride 10 ml Q8HR IV 06/04/25 22:00 06/07/25 05:45 10 ML Ondansetron HCl 4 mg Q4HP PRN IV 06/04/25 15:45 Acetaminophen 650 mg Q6HP PRN PO 06/04/25 15:45 Morphine Sulfate 2 mg Q4HPRN PRN IV 06/04/25 15:45 Nitroglycerin 0.4 mg Q5MINP PRN SL 06/04/25 15:45 Morphine Sulfate 2 mg Q30M PRN IV 06/04/25 15:45 Pantoprazole Sodium 40 mg DAILY IV 06/05/25 10:00 06/07/25 09:45 40 MG Piperacillin Sod/ Tazobactam Sod 100 ml @ 25 mls/hr Q6HR IV 06/05/25 00:00 06/07/25 05:57 25 MLS/HR Vancomycin HCl 0 ml @ 0 mls/hr UD IV 06/04/25 16:00 Diagnostic Test (Pha) 1 strip ACHS 06/04/25 17:00 06/07/25 06:25 1 STRIP Insulin Human Regular ACHS SC 06/04/25 17:00 06/07/25 06:41 3 UNITS Dextrose 50 ml UD PRN IV 06/04/25 16:15 Hydralazine HCl 10 mg Q6HP PRN IV 06/04/25 16:15 Heparin Sodium/ Dextrose 250 ml @ 18.648 mls/ hr [id number] IV 06/05/25 09:45 UNV Heparin Sodium (Porcine) 5,000 units Q12HR SC 06/05/25 10:30 06/07/25 09:51 5,000 UNITS Vancomycin HCl 200 ml @ 200 mls/hr Q6HR IV 06/07/25 10:00 UNV laboratory and microbiology Laboratory Tests 06/07/25 05:25 Test 06/07/25 05:25 Range/Units Serum Glucose 209 H 74-106 mg/dL Problem List/Assessment/Plan Problem List/Assessment/Plan 06/07/25 explained operative findings and procedure to patient, he is "surgically" stable. he could be treated at home with home health nurseand wound care with wound vac. explained to patient the healing will take several weeks or months to be completed. Plan discussed with: Patient Dietary Evaluation Review Comments: 1) Dev 1 pk BID 2) Vit C 500mg BID, zinc sulfate 220mg BID x 10 days, MVI w mineral 1 tab daily 3) CCHO 75gm + 2gm Na diet Expected Outcomes/Goals: Wound to improve blood glucose WNL Fu 3-5 days WALKER SALCEDO MD Jun 07, 2025 10:01
[2025-06-07] MEDS ORDERED: VANCOMYCIN 1.25gm/250mL PREMIX or KIT IV SCH (11:00)
[2025-06-07] MEDS: INSULIN LANTUS (GLARGINE) 1 /0.01ml (100units/ml) SC SCH (11:15)
[2025-06-07] MEDS: VANCOMYCIN 1GM/200ML PM 200 ML IV SCH (11:36)
--- NOTE | 2025-06-07 12:43 | DVHPNRES ---
Progress Note Date Seen: Jun 07, 2025 Resident Creating Document: ANETA BLANTON RESIDENT Has the PT tested + for MRSA If YES, has PT been informed?: No Medical Necessity Reason Pt with a Central, PICC or Fol: No Subjective Review of Systems History of Present Illness Anjum Cain is 34-year-old male with a PMH of type 2 DM, HTN presented to the ED after being sent by his PCP for the wound evaluation on the back. Patient reported in December he underwent an some cyst surgery in the cervical region at the time he noted to have a sacral ulcer and he was on rehabilitation for 4-5 months after the surgery for the spine and he said the wound has been taken care by the people in the facility but no systemic signs of infection or inflammation noted and patient was recently discharged from the facility. Today patient went to the primary clinic to establish the care, on examination they noted a purulent drainage from fistula as like tract from the sacral wound but no signs of pain, redness, fever, chills, recent trauma and other associated symptoms so they brought him to ED for further evaluation and management. Patient also reported initially he is bed-bound but not anymore now he can able to walk with the help of walker. PMH: Type 2 DM, HTN PSH: Recent cervical spine surgery Family history noncontributory Social history: Lives at home. Denies smoking, alcohol and other drug abuse Allergies: No known allergies Home medications: Metformin diabetes but unable to recall medications for high blood pressure 06/07 interval events: The patient was seen and examined at the bedside. Overnight events were reviewed. Status post debridement of sacral ulcer/non healed pilonidal surgical site, patient reports no pain at the site. He denies any chest pain, shortness of breath, fever, chills, abdominal pain or any other complaints at this time. No new complaints reported. Rest of the review of system is negative. Objective vital signs Vital Sign Date Time Temp Pulse Resp B/P (MAP) Pulse Ox O2 Delivery O2 Flow Rate FiO2 06/07/25 09:00 97.7 119 18 134/94 (107) 97 97.7 06/07/25 08:08 Room Air* 0 21 Total Intake and Output 06/06/25 06/06/25 06/07/25 15:00 23:00 07:00 Intake Total 375 ml 125 ml 350 ml Output Total 450 ml 725 ml Balance 375 ml -325 ml -375 ml medications Current Medications Medications Dose Ordered Sig/Anita Route Start Time Stop Time Status Last Admin Dose Admin Sodium Chloride 10 ml Q8HR IV 06/04/25 22:00 06/07/25 05:45 10 ML Ondansetron HCl 4 mg Q4HP PRN IV 06/04/25 15:45 Acetaminophen 650 mg Q6HP PRN PO 06/04/25 15:45 Morphine Sulfate 2 mg Q4HPRN PRN IV 06/04/25 15:45 Nitroglycerin 0.4 mg Q5MINP PRN SL 06/04/25 15:45 Morphine Sulfate 2 mg Q30M PRN IV 06/04/25 15:45 Pantoprazole Sodium 40 mg DAILY IV 06/05/25 10:00 06/07/25 09:45 40 MG Piperacillin Sod/ Tazobactam Sod 100 ml @ 25 mls/hr Q6HR IV 06/05/25 00:00 06/07/25 05:57 25 MLS/HR Vancomycin HCl 0 ml @ 0 mls/hr UD IV 06/04/25 16:00 Diagnostic Test (Pha) 1 strip ACHS 06/04/25 17:00 06/07/25 11:36 1 STRIP Insulin Human Regular ACHS SC 06/04/25 17:00 06/07/25 11:46 3 UNITS Dextrose 50 ml UD PRN IV 06/04/25 16:15 Hydralazine HCl 10 mg Q6HP PRN IV 06/04/25 16:15 Heparin Sodium/ Dextrose 250 ml @ 18.648 mls/ hr [id number] IV 06/05/25 09:45 UNV Heparin Sodium (Porcine) 5,000 units Q12HR SC 06/05/25 10:30 06/07/25 09:51 5,000 UNITS Vancomycin HCl 200 ml @ 200 mls/hr Q6H IV 06/07/25 11:00 06/07/25 11:36 200 MLS/HR Insulin Glargine 10 units QAM SC 06/07/25 11:15 UNV Examination General Appearance: Alert, Oriented X3, Cooperative, Not in acute distress HEENT: Atraumatic, Mucous membranes moist/pink Respiratory: Clear to auscultation, Normal air movement, No added sounds Cardiovascular: Regular rate, Normal S1, Normal S2, No murmurs Abdominal: Active bowel sounds, Soft, no distention, no tenderness Extremities: No edema, Normal pulses, No tenderness/swelling Skin: wound VAC was applied in a horizontal fashion over the wound Neuro: Muscle wasting noted, no sensory deficits, weakness in left upper and lower extremities status post cervical surgery, walker dependent Psych/Mental Status: Mental status NL, Mood NL laboratory and microbiology Laboratory Tests 06/07/25 05:25 Test 06/07/25 05:25 Range/Units Serum Glucose 209 H 74-106 mg/dL Microbiology Date/Time Source Procedure Growth Status 06/05/25 13:15 Voided Urine Urine Culture - Final Complete 06/04/25 23:30 Sacrum Gram Stain - Final Resulted 06/04/25 23:30 Sacrum Wound Culture - Preliminary Resulted Labs and/or images reviewed: Labs reviewed by me, Image(s) reviewed by me Problem List/Assessment/Plan Problem List/Assessment/Plan # Sacral abscess/ osteomyelitis # sacral decubitus ulcer, unspecified stage # non-healed pilonidal cyst And sinus # s/p debridement of non-healed pilonidal surgical site on 06/06/2025; wound VAC in place -CT pelvis with the contrast, There is osteomyelitis of the lower sacrum and coccyx with soft tissue abscess extending posteriorly and inferiorly and infiltrating the gluteal musculature. Although there is some pre coccygeal soft tissue swelling no distinct abscess is seen posterior to the rectum - Zosyn and vancomycin empiric - wound consult and wound cultures - surgery is following -explained operative findings and procedure to patient, he is "surgically" stable. he could be treated at home with home health nurse and wound care with wound vac. explained to patient the healing will take several weeks or months to be completed. -infectious disease was consulted. # ? Acute complicated UTI - evident on urinalysis - ordered urine bacterial culture - currently giving Zosyn # type 2 DM with HbA1c pending - continuously monitored and glucose - mild ISS -insulin Lantus 10 mg added to the regimen. # uncontrolled HTN - continuously monitor - hydralazine p.r.n. - obtain Home medications List GI PPX: Protonix VTE ppx: Lovenox Diet: Regular Case discussed with Dr. Ibrahim, patient and nurse Plan discussed with: Patient, Other (RN) My Orders My Orders Orders - HARVINDER,ANETA RESIDENT Procedure Category Date Status Time Mrsa Screen CELESTE 06/07/25 In Process 09:28 * Infectious [place]- CONS 06/07/25 Transmitted Sterling Vásquez 10:58 Insulin Lantus PHA 06/07/25 Logged (Glargine) (Lantus) 11:15 Dietary Evaluation Review Comments: 1) Dev 1 pk BID 2) Vit C 500mg BID, zinc sulfate 220mg BID x 10 days, MVI w mineral 1 tab daily 3) CCHO 75gm + 2gm Na diet Expected Outcomes/Goals: Wound to improve blood glucose WNL Fu 3-5 days Addendum Addendum Addendum I was physically present for the cruz portions of the service provided to patient by THE RESIDENT. I have reviewed the documentation, discussed the case with resident and agree with the resident's documentation except as noted. Also the patient's clinical case was discussed with the patient's nurse. This medical document was created using an electronic medical record system with computerized dictation system. Although this document has been carefully reviewed, there might still be some phonetic and typographical errors. These areas are purely typographical due to imperfections of the software programs, and do not reflect any compromise in the patient's medical care. Late signature. Date of Service: Jun 07, 2025 Billing Provider: INGE IBRAHIM MD Common Visit Codes: [id number] INP/OBS CARE(HIGH) ANETA BLANTON RESIDENT Jun 07, 2025 12:43 MIRELLA SHEN RESIDENT Jun 07, 2025 17:01 INGE IBRAHIM MD Jun 09, 2025 04:55
[2025-06-07] MEDS ORDERED: VANCOMYCIN 1.5GM/300ML 300 ML IV SCH (15:00)
[2025-06-08] VITALS (7 sets, daily range): BP systolic 105–138; BP diastolic 64–89; PULSE 87–109; RESP 18–19; TEMP 97.9–99; O2SAT 97–98
[2025-06-08 06:17] LABS: Hematocrit 37.2 % (41.0-53.0); Hemoglobin 12.5 g/dL (13.5-17.5); Mean Corpuscular Hemoglobin 28.2 pg (28.0-32.0); Mean Corpuscular Volume 84.0 fL (80.0-100.0); Nucleated Red Blood Cells % 0.0 %
[2025-06-08 06:23] LABS: Sodium 143 mmol/L (136-145)
[2025-06-08 06:29] LABS: BUN/Creatinine Ratio 15.3 (10.0-20.0); Blood Urea Nitrogen 11 mg/dL (9-23)
[2025-06-08 06:30] LABS: Calcium 8.5 mg/dL (8.7-10.4); Glucose 141 mg/dL (74-106)
[2025-06-08 06:31] LABS: Anion Gap 8 (5-15); Carbon Dioxide 25 mmol/L (20-31); Chloride 110 mmol/L (98-107); Potassium 3.4 mmol/L (3.5-5.1)
--- NOTE | 2025-06-08 12:56 | DVHPN2 ---
Subjective Date Seen: Jun 08, 2025 Post op day Post op day: 2 Patient reports: No new complaints, Feels better Objective Vitals Vital Sign Date Time Temp Pulse Resp B/P (MAP) Pulse Ox O2 Delivery O2 Flow Rate FiO2 06/08/25 09:00 98.2 87 19 138/89 (105) 97 98.2 06/08/25 08:08 Room Air* 0 21 Total Intake and Output 06/07/25 06/07/25 06/08/25 15:00 23:00 07:00 Intake Total 300 ml 1900 ml 800 ml Output Total 900 ml Balance 300 ml 1900 ml -100 ml Medications Current Medications Medications Dose Ordered Sig/Anita Route Start Time Stop Time Status Last Admin Dose Admin Sodium Chloride 10 ml Q8HR IV 06/04/25 22:00 06/08/25 11:50 10 ML Ondansetron HCl 4 mg Q4HP PRN IV 06/04/25 15:45 Acetaminophen 650 mg Q6HP PRN PO 06/04/25 15:45 Morphine Sulfate 2 mg Q4HPRN PRN IV 06/04/25 15:45 Nitroglycerin 0.4 mg Q5MINP PRN SL 06/04/25 15:45 Morphine Sulfate 2 mg Q30M PRN IV 06/04/25 15:45 Pantoprazole Sodium 40 mg DAILY IV 06/05/25 10:00 06/08/25 09:02 40 MG Piperacillin Sod/ Tazobactam Sod 100 ml @ 25 mls/hr Q6HR IV 06/05/25 00:00 06/08/25 12:49 25 MLS/HR Diagnostic Test (Pha) 1 strip ACHS 06/04/25 17:00 06/08/25 11:36 1 STRIP Insulin Human Regular ACHS SC 06/04/25 17:00 06/08/25 11:50 2 UNITS Dextrose 50 ml UD PRN IV 06/04/25 16:15 Hydralazine HCl 10 mg Q6HP PRN IV 06/04/25 16:15 Heparin Sodium/ Dextrose 250 ml @ 18.648 mls/ hr [id number] IV 06/05/25 09:45 UNV Heparin Sodium (Porcine) 5,000 units Q12HR SC 06/05/25 10:30 06/08/25 09:07 5,000 UNITS Insulin Glargine 10 units QAM SC 06/07/25 11:15 Ampicillin Sodium 2 gm/Sodium Chloride 100 ml @ 100 mls/hr Q6HR IV 06/08/25 18:00 UNV General: Normal Head/Eyes: Normal ENT: Normal Neck: Normal Lungs: Normal Musculoskeletal: Normal Extremities: Normal Skin: Normal Labs and Microbiology Laboratory Tests 06/08/25 10:06 06/08/25 05:53 Test 06/08/25 05:53 Range/Units Serum Glucose 141 H 74-106 mg/dL Ass/Plan Labs and/or images reviewed: Labs reviewed by me, Image(s) reviewed by me Problem List # Sacral abscess/ osteomyelitis # sacral decubitus ulcer, unspecified stage # non-healed pilonidal cyst And sinus -CT pelvis with the contrast, There is osteomyelitis of the lower sacrum and coccyx with soft tissue abscess extending posteriorly and inferiorly and infiltrating the gluteal musculature. Although there is some pre coccygeal soft tissue swelling no distinct abscess is seen posterior to the rectum - Zosyn and vancomycin empiric - wound consult and wound cultures - surgical consult done: Debridement of non-healed pilonidal surgical site -explained operative findings and procedure to patient, he is "surgically" stable. he could be treated at home with home health nurse and wound care with wound vac. explained to patient the healing will take several weeks or months to be completed. -infectious disease was consulted. # ? Acute complicated UTI - evident on urinalysis - ordered urine bacterial culture - currently giving Zosyn # type 2 DM with HbA1c pending - continuously monitored and glucose - mild ISS -insulin Lantus 10 mg added to the regimen. # uncontrolled HTN - continuously monitor - hydralazine p.r.n. - obtain Home medications List GI PPX: Protonix VTE ppx: Lovenox Diet: Regular Goals of care addressed with the patient for more than 27 minutes: Full code status Case discussed with Dr. Francis,patient and nurse Assessment/Plan s/p incision and drainage of sacral wound no new complaints wound ok, wound vac in place small leak labs and notes reviewed wound consult replace wound vac social science manager consult for home health Prognosis: Excellent Plan discussed with Dr. Kam Farooq patient Visit Coding Surgery Date of Service if different f: Jun 08, 2025 Billing Provider: KMA FAROOQ MD Surgery Visit Codes: [id number] INP/OBS CARE(HIGH) MASHA SIDDIQUI SERVICE ENGINE REPAIRER Jun 08, 2025 12:56
[2025-06-08] MEDS: AMPICILLIN SOD 2GM INJ 2 GM in SODIUM CHL 0.9% 100 ML IV SCH (17:34)
--- NOTE | 2025-06-08 18:27 | DVHPNRES ---
Progress Note Date Seen: Jun 08, 2025 Resident Creating Document: ANETA BLANTON RESIDENT Has the PT tested + for MRSA If YES, has PT been informed?: No Medical Necessity Reason Pt with a Central, PICC or Fol: No Subjective Review of Systems History of Present Illness Anjum Cain is 34-year-old male with a PMH of type 2 DM, HTN presented to the ED after being sent by his PCP for the wound evaluation on the back. Patient reported in December he underwent an some cyst surgery in the cervical region at the time he noted to have a sacral ulcer and he was on rehabilitation for 4-5 months after the surgery for the spine and he said the wound has been taken care by the people in the facility but no systemic signs of infection or inflammation noted and patient was recently discharged from the facility. Today patient went to the primary clinic to establish the care, on examination they noted a purulent drainage from fistula as like tract from the sacral wound but no signs of pain, redness, fever, chills, recent trauma and other associated symptoms so they brought him to ED for further evaluation and management. Patient also reported initially he is bed-bound but not anymore now he can able to walk with the help of walker. PMH: Type 2 DM, HTN PSH: Recent cervical spine surgery Family history noncontributory Social history: Lives at home. Denies smoking, alcohol and other drug abuse Allergies: No known allergies Home medications: Metformin diabetes but unable to recall medications for high blood pressure 06/08 interval events: The patient was seen and examined at the bedside. Overnight events were reviewed. Status post debridement of sacral ulcer/non healed pilonidal surgical site, patient reports no pain at the site. He denies any chest pain, shortness of breath, fever, chills, abdominal pain or any other complaints at this time. No new complaints reported. Rest of the review of system is negative. Objective vital signs Vital Sign Date Time Temp Pulse Resp B/P (MAP) Pulse Ox O2 Delivery O2 Flow Rate FiO2 06/08/25 16:59 98.8 109 18 127/86 (100) 97 98.8 06/08/25 08:08 Room Air* 0 21 Total Intake and Output 06/07/25 06/07/25 06/08/25 15:00 23:00 07:00 Intake Total 300 ml 1900 ml 800 ml Output Total 900 ml Balance 300 ml 1900 ml -100 ml medications Current Medications Medications Dose Ordered Sig/Anita Route Start Time Stop Time Status Last Admin Dose Admin Sodium Chloride 10 ml Q8HR IV 06/04/25 22:00 06/08/25 11:50 10 ML Ondansetron HCl 4 mg Q4HP PRN IV 06/04/25 15:45 Acetaminophen 650 mg Q6HP PRN PO 06/04/25 15:45 Morphine Sulfate 2 mg Q4HPRN PRN IV 06/04/25 15:45 Nitroglycerin 0.4 mg Q5MINP PRN SL 06/04/25 15:45 Morphine Sulfate 2 mg Q30M PRN IV 06/04/25 15:45 Pantoprazole Sodium 40 mg DAILY IV 06/05/25 10:00 06/08/25 09:02 40 MG Diagnostic Test (Pha) 1 strip ACHS 06/04/25 17:00 06/08/25 17:28 1 STRIP Insulin Human Regular ACHS SC 06/04/25 17:00 06/08/25 17:41 3 UNITS Dextrose 50 ml UD PRN IV 06/04/25 16:15 Hydralazine HCl 10 mg Q6HP PRN IV 06/04/25 16:15 Heparin Sodium/ Dextrose 250 ml @ 18.648 mls/ hr [id number] IV 06/05/25 09:45 UNV Heparin Sodium (Porcine) 5,000 units Q12HR SC 06/05/25 10:30 06/08/25 09:07 5,000 UNITS Insulin Glargine 10 units QAM SC 06/07/25 11:15 Ampicillin Sodium 2 gm/Sodium Chloride 100 ml @ 100 mls/hr Q6HR IV 06/08/25 18:00 06/08/25 17:34 100 MLS/HR Ertapenem 1 gm/ Sodium Chloride 50 ml @ 100 mls/hr DAILY IV 06/09/25 10:00 Examination General Appearance: Alert, Oriented X3, Cooperative, Not in acute distress HEENT: Atraumatic, Mucous membranes moist/pink Respiratory: Clear to auscultation, Normal air movement, No added sounds Cardiovascular: Regular rate, Normal S1, Normal S2, No murmurs Abdominal: Active bowel sounds, Soft, no distention, no tenderness Extremities: No edema, Normal pulses, No tenderness/swelling Skin: wound VAC was applied in a horizontal fashion over the wound Neuro: Muscle wasting noted, no sensory deficits, weakness in left upper and lower extremities status post cervical surgery, walker dependent Psych/Mental Status: Mental status NL, Mood NL laboratory and microbiology Laboratory Tests 06/08/25 10:06 06/08/25 05:53 Test 06/08/25 05:53 Range/Units Serum Glucose 141 H 74-106 mg/dL Microbiology Date/Time Source Procedure Growth Status 06/07/25 09:00 Nose MRSA Screen - Final Complete 06/05/25 13:15 Voided Urine Urine Culture - Final Complete Labs and/or images reviewed: Labs reviewed by me, Image(s) reviewed by me Problem List/Assessment/Plan Problem List/Assessment/Plan # Sacral abscess/ osteomyelitis # sacral decubitus ulcer, unspecified stage # non-healed pilonidal cyst And sinus # s/p debridement of non-healed pilonidal surgical site on 06/06/2025; wound VAC in place -CT pelvis with the contrast, There is osteomyelitis of the lower sacrum and coccyx with soft tissue abscess extending posteriorly and inferiorly and infiltrating the gluteal musculature. Although there is some pre coccygeal soft tissue swelling no distinct abscess is seen posterior to the rectum - wound consult and wound cultures -wound cultures revealed growth of E coli, Enterococcus faecalis - Zosyn and vancomycin empiric was given, both antibiotics discontinued today based on culture and sensitivity report. Ertapenem and ampicillin was added according to the culture and sensitivity report. - surgery is following -explained operative findings and procedure to patient, he is "surgically" stable. he could be treated at home with home health nurse and wound care with wound vac. explained to patient the healing will take several weeks or months to be completed. -infectious disease was consulted # ? Acute complicated UTI - evident on urinalysis - ordered urine bacterial culture -antibiotics as above # type 2 DM with HbA1c pending - continuously monitored and glucose - mild ISS -insulin Lantus 10 mg added to the regimen. # uncontrolled HTN - continuously monitor - hydralazine p.r.n. - obtain Home medications List GI PPX: Protonix VTE ppx: Lovenox Diet: Regular Case discussed with Dr. Ibrahim,patient and nurse Plan discussed with: Patient, Other (RN) Dietary Evaluation Review Comments: 1) Dev 1 pk BID 2) Vit C 500mg BID, zinc sulfate 220mg BID x 10 days, MVI w mineral 1 tab daily 3) CCHO 75gm + 2gm Na diet Expected Outcomes/Goals: Wound to improve blood glucose WNL Fu 3-5 days Addendum Addendum Addendum I was physically present for the cruz portions of the service provided to patient by THE RESIDENT. I have reviewed the documentation, discussed the case with resident and agree with the resident's documentation except as noted. Also the patient's clinical case was discussed with the patient's nurse. This medical document was created using an electronic medical record system with computerized dictation system. Although this document has been carefully reviewed, there might still be some phonetic and typographical errors. These areas are purely typographical due to imperfections of the software programs, and do not reflect any compromise in the patient's medical care. Late signature. Date of Service: Jun 08, 2025 Billing Provider: INGE IBRAHIM MD Common Visit Codes: [id number] INP/OBS CARE(HIGH) ANETA BLANTON RESIDENT Jun 08, 2025 18:27 INGE IBRAHIM MD Jun 09, 2025 04:58
[2025-06-09] VITALS (7 sets, daily range): BP systolic 119–153; BP diastolic 73–105; PULSE 76–106; RESP 18–19; TEMP 97.7–98.4; O2SAT 97–99
[2025-06-09] MEDS: ERTAPENEM SOD INJ 1 GM in SODIUM CHL 0.9% 50 ML IV SCH (10:32)
[2025-06-09 10:40] LABS: Hematocrit 37.6 % (41.0-53.0); Hemoglobin 12.7 g/dL (13.5-17.5); Mean Corpuscular Hemoglobin 28.2 pg (28.0-32.0); Mean Corpuscular Volume 83.4 fL (80.0-100.0); Nucleated Red Blood Cells % 0.0 %
[2025-06-09 11:05] LABS: Potassium 3.9 mmol/L (3.5-5.1); Sodium 143 mmol/L (136-145)
[2025-06-09 11:06] LABS: Anion Gap 7 (5-15); Calcium 9.4 mg/dL (8.7-10.4); Carbon Dioxide 27 mmol/L (20-31)
[2025-06-09 11:11] LABS: BUN/Creatinine Ratio 16.7 (10.0-20.0); Blood Urea Nitrogen 10 mg/dL (9-23)
--- NOTE | 2025-06-09 11:17 | DVHPN2 ---
Subjective Date Seen: Jun 09, 2025 Post op day Post op day: 3 Objective Vitals Vital Sign Date Time Temp Pulse Resp B/P (MAP) Pulse Ox O2 Delivery O2 Flow Rate FiO2 06/09/25 08:29 97.8 87 18 131/73 (92) 99 97.8 06/09/25 08:00 Room Air* 0 21 Total Intake and Output 06/08/25 06/08/25 06/09/25 15:00 23:00 07:00 Intake Total 300 ml 800 ml 1040 ml Output Total 750 ml 700 ml Balance 300 ml 50 ml 340 ml Medications Current Medications Medications Dose Ordered Sig/Anita Route Start Time Stop Time Status Last Admin Dose Admin Sodium Chloride 10 ml Q8HR IV 06/04/25 22:00 06/09/25 06:00 10 ML Ondansetron HCl 4 mg Q4HP PRN IV 06/04/25 15:45 Acetaminophen 650 mg Q6HP PRN PO 06/04/25 15:45 Morphine Sulfate 2 mg Q4HPRN PRN IV 06/04/25 15:45 Nitroglycerin 0.4 mg Q5MINP PRN SL 06/04/25 15:45 Morphine Sulfate 2 mg Q30M PRN IV 06/04/25 15:45 Pantoprazole Sodium 40 mg DAILY IV 06/05/25 10:00 06/09/25 10:32 40 MG Diagnostic Test (Pha) 1 strip ACHS 06/04/25 17:00 06/09/25 06:23 1 STRIP Insulin Human Regular ACHS SC 06/04/25 17:00 06/09/25 06:17 3 UNITS Dextrose 50 ml UD PRN IV 06/04/25 16:15 Hydralazine HCl 10 mg Q6HP PRN IV 06/04/25 16:15 Heparin Sodium/ Dextrose 250 ml @ 18.648 mls/ hr [id number] IV 06/05/25 09:45 UNV Heparin Sodium (Porcine) 5,000 units Q12HR SC 06/05/25 10:30 06/09/25 10:30 5,000 UNITS Insulin Glargine 10 units QAM SC 06/07/25 11:15 Ampicillin Sodium 2 gm/Sodium Chloride 100 ml @ 100 mls/hr Q6HR IV 06/08/25 18:00 06/09/25 06:00 100 MLS/HR Ertapenem 1 gm/ Sodium Chloride 50 ml @ 100 mls/hr DAILY IV 06/09/25 10:00 06/09/25 10:32 100 MLS/HR General: Normal Head/Eyes: Normal ENT: Normal Neck: Normal Lungs: Normal Musculoskeletal: Normal Extremities: Normal Skin: Normal Labs and Microbiology Test 06/09/25 10:28 Range/Units Serum Glucose Pending Ass/Plan Labs and/or images reviewed: Labs reviewed by me, Image(s) reviewed by me Problem List # Sacral abscess/ osteomyelitis # sacral decubitus ulcer, unspecified stage # non-healed pilonidal cyst And sinus # s/p debridement of non-healed pilonidal surgical site on 06/06/2025; wound VAC in place -CT pelvis with the contrast, There is osteomyelitis of the lower sacrum and coccyx with soft tissue abscess extending posteriorly and inferiorly and infiltrating the gluteal musculature. Although there is some pre coccygeal soft tissue swelling no distinct abscess is seen posterior to the rectum - wound consult and wound cultures -wound cultures revealed growth of E coli, Enterococcus faecalis - Zosyn and vancomycin empiric was given, both antibiotics discontinued today based on culture and sensitivity report. Ertapenem and ampicillin was added according to the culture and sensitivity report. - surgery is following -explained operative findings and procedure to patient, he is "surgically" stable. he could be treated at home with home health nurse and wound care with wound vac. explained to patient the healing will take several weeks or months to be completed. -infectious disease was consulted # ? Acute complicated UTI - evident on urinalysis - ordered urine bacterial culture -antibiotics as above # type 2 DM with HbA1c pending - continuously monitored and glucose - mild ISS -insulin Lantus 10 mg added to the regimen. # uncontrolled HTN - continuously monitor - hydralazine p.r.n. - obtain Home medications List GI PPX: Protonix VTE ppx: Lovenox Diet: Regular Case discussed with Dr. Francis,patient and nurse Assessment/Plan s/p incision and drainage of sacral wound no new complaints wound ok, wound vac in place small leak labs and notes reviewed wound consult replace wound vac oncology social worker consult for home health 06/09/25 no new complaints , wound ok , wound vac removed Plan: wound vac before discharge once wound vac is placed patient ok to discharge. patient to follow up in surgery clinic in two weeks after discharge Prognosis: Excellent Plan discussed with patient Dr. Farooq Visit Coding Surgery Date of Service if different f: Jun 09, 2025 Billing Provider: WALKER FAROOQ MD Surgery Visit Codes: [id number] INP/OBS CARE(HIGH) MASHA SIDDIQUI NP Jun 09, 2025 11:17
[2025-06-09 11:19] LABS: Chloride 109 mmol/L (98-107); Glucose 167 mg/dL (74-106)
--- NOTE | 2025-06-09 15:38 | DVHPNRES ---
Progress Note Date Seen: Jun 09, 2025 Resident Creating Document: ANETA BLANTON RESIDENT Has the PT tested + for MRSA If YES, has PT been informed?: No Medical Necessity Reason Pt with a Central, PICC or Fol: No Subjective Review of Systems Anjum Cain is 34-year-old male with a PMH of type 2 DM, HTN presented to the ED after being sent by his PCP for the wound evaluation on the back. Patient reported in December he underwent an some cyst surgery in the cervical region at the time he noted to have a sacral ulcer and he was on rehabilitation for 4-5 months after the surgery for the spine and he said the wound has been taken care by the people in the facility but no systemic signs of infection or inflammation noted and patient was recently discharged from the facility. Today patient went to the primary clinic to establish the care, on examination they noted a purulent drainage from fistula as like tract from the sacral wound but no signs of pain, redness, fever, chills, recent trauma and other associated symptoms so they brought him to ED for further evaluation and management. Patient also reported initially he is bed-bound but not anymore now he can able to walk with the help of walker. PMH: Type 2 DM, HTN PSH: Recent cervical spine surgery Family history noncontributory Social history: Lives at home. Denies smoking, alcohol and other drug abuse Allergies: No known allergies Home medications: Metformin diabetes but unable to recall medications for high blood pressure 06/09 interval events: The patient was seen and examined at the bedside. Overnight events were reviewed. Status post debridement of sacral ulcer/non healed pilonidal surgical site, patient reports no pain at the site. He denies any chest pain, shortness of breath, fever, chills, abdominal pain or any other complaints at this time. No new complaints reported. Rest of the review of system is negative. Objective vital signs Vital Sign Date Time Temp Pulse Resp B/P (MAP) Pulse Ox O2 Delivery O2 Flow Rate FiO2 06/09/25 13:00 97.9 100 18 152/105 (121) 97 97.9 06/09/25 08:00 Room Air* 0 21 Total Intake and Output 06/08/25 06/08/25 06/09/25 15:00 23:00 07:00 Intake Total 300 ml 800 ml 1040 ml Output Total 750 ml 700 ml Balance 300 ml 50 ml 340 ml medications Current Medications Medications Dose Ordered Sig/Anita Route Start Time Stop Time Status Last Admin Dose Admin Sodium Chloride 10 ml Q8HR IV 06/04/25 22:00 06/09/25 13:36 10 ML Ondansetron HCl 4 mg Q4HP PRN IV 06/04/25 15:45 Acetaminophen 650 mg Q6HP PRN PO 06/04/25 15:45 Morphine Sulfate 2 mg Q4HPRN PRN IV 06/04/25 15:45 Nitroglycerin 0.4 mg Q5MINP PRN SL 06/04/25 15:45 Morphine Sulfate 2 mg Q30M PRN IV 06/04/25 15:45 Pantoprazole Sodium 40 mg DAILY IV 06/05/25 10:00 06/09/25 10:32 40 MG Diagnostic Test (Pha) 1 strip ACHS 06/04/25 17:00 06/09/25 13:29 1 STRIP Insulin Human Regular ACHS SC 06/04/25 17:00 06/09/25 13:29 3 UNITS Dextrose 50 ml UD PRN IV 06/04/25 16:15 Hydralazine HCl 10 mg Q6HP PRN IV 06/04/25 16:15 Heparin Sodium/ Dextrose 250 ml @ 18.648 mls/ hr [id number] IV 06/05/25 09:45 UNV Heparin Sodium (Porcine) 5,000 units Q12HR SC 06/05/25 10:30 06/09/25 10:30 5,000 UNITS Insulin Glargine 10 units QAM SC 06/07/25 11:15 Ampicillin Sodium 2 gm/Sodium Chloride 100 ml @ 100 mls/hr Q6HR IV 06/08/25 18:00 06/09/25 13:31 100 MLS/HR Ertapenem 1 gm/ Sodium Chloride 50 ml @ 100 mls/hr DAILY IV 06/09/25 10:00 06/09/25 10:32 100 MLS/HR Examination General Appearance: Alert, Oriented X3, Cooperative, Not in acute distress HEENT: Atraumatic, Mucous membranes moist/pink Respiratory: Clear to auscultation, Normal air movement, No added sounds Cardiovascular: Regular rate, Normal S1, Normal S2, No murmurs Abdominal: Active bowel sounds, Soft, no distention, no tenderness Extremities: No edema, Normal pulses, No tenderness/swelling Skin: Clean surgical dressing Neuro: Muscle wasting noted, no sensory deficits, weakness in left upper and lower extremities status post cervical surgery, walker dependent Psych/Mental Status: Mental status NL, Mood NL laboratory and microbiology Laboratory Tests 06/09/25 10:28 Test 06/09/25 10:28 Range/Units Serum Glucose 167 H 74-106 mg/dL Microbiology Date/Time Source Procedure Growth Status 06/07/25 09:00 Nose MRSA Screen - Final Complete 06/05/25 13:15 Voided Urine Urine Culture - Final Complete Labs and/or images reviewed: Labs reviewed by me, Image(s) reviewed by me Problem List/Assessment/Plan Problem List/Assessment/Plan # Sacral abscess/ osteomyelitis # sacral decubitus ulcer, unspecified stage # non-healed pilonidal cyst And sinus # s/p debridement of non-healed pilonidal surgical site on 06/06/2025; wound VAC was in place -CT pelvis with the contrast, There is osteomyelitis of the lower sacrum and coccyx with soft tissue abscess extending posteriorly and inferiorly and infiltrating the gluteal musculature. Although there is some pre coccygeal soft tissue swelling no distinct abscess is seen posterior to the rectum - wound consult and wound cultures -wound cultures revealed growth of E coli, Enterococcus faecalis - Initially Zosyn and vancomycin empiric was given, both antibiotics discontinued, based on culture and sensitivity report. Ertapenem and ampicillin was added according to the culture and sensitivity report. - surgery is following -explained operative findings and procedure to patient, he is "surgically" stable. he could be treated at home with home health nurse and wound care with wound vac. explained to patient the healing will take several weeks or months to be completed. -infectious disease was consulted, given update to the infectious disease specialist regarding the patient, pending evaluation # ? Acute complicated UTI - evident on urinalysis - ordered urine bacterial culture -antibiotics as above # type 2 DM with HbA1c pending - continuously monitored and glucose - mild ISS -insulin Lantus 10 mg added to the regimen. # uncontrolled HTN - continuously monitor - hydralazine p.r.n. - obtain Home medications List GI PPX: Protonix VTE ppx: Lovenox Diet: Regular Case discussed with Dr. Ibrahim, patient and nurse Plan discussed with: Patient (RN), Other (Mother; nurse) Dietary Evaluation Review Comments: 1) Dev 1 pk BID 2) Vit C 500mg BID, zinc sulfate 220mg BID x 10 days, MVI w mineral 1 tab daily 3) CCHO 75gm + 2gm Na diet Expected Outcomes/Goals: Wound to improve blood glucose WNL Fu 3-5 days Addendum Addendum Addendum I was physically present for the cruz portions of the service provided to patient by THE RESIDENT. I have reviewed the documentation, discussed the case with resident and agree with the resident's documentation except as noted. Also the patient's clinical case was discussed with the patient's nurse. This medical document was created using an electronic medical record system with computerized dictation system. Although this document has been carefully reviewed, there might still be some phonetic and typographical errors. These areas are purely typographical due to imperfections of the software programs, and do not reflect any compromise in the patient's medical care. Late signature. Date of Service: Jun 09, 2025 Billing Provider: INGE IBRAHIM MD Common Visit Codes: [id number] INP/OBS CARE(HIGH) ANETA BLANTON RESIDENT Jun 09, 2025 15:38 INGE IBRAHIM MD Jun 10, 2025 14:31
--- NOTE | 2025-06-09 18:14 | DVHINCON2 ---
Date of service: Jun 08, 2025 Allergies: Coded Allergies: NO KNOWN ALLERGIES (Unverified , 01/11/25) Home Meds No Active Prescriptions or Reported Meds Current Medications Current Medications Medications (Trade) Dose Ordered Sig/Anita Route PRN Reason Start Time Stop Time Status Last Admin Ampicillin Sodium 2 gm/Sodium Chloride 100 ml @ 100 mls/hr Q6HR IV 06/08/25 18:00 06/09/25 13:31 Ertapenem 1 gm/ Sodium Chloride 50 ml @ 100 mls/hr DAILY IV 06/09/25 10:00 06/09/25 10:32 Vital Signs Vital Signs Date Time Temp Pulse Resp B/P (MAP) Pulse Ox O2 Delivery O2 Flow Rate FiO2 06/09/25 17:04 98.4 106 18 153/103 (120) 99 98.4 06/09/25 08:00 Room Air* 0 21 Labs/Diagnostic Data Labs Test 06/09/25 17:17 06/09/25 10:28 06/08/25 10:06 06/06/25 17:14 Range/Units POC Glucose 194 H 70-106 mg/dl White Blood Count 6.7 4.4-10.8 10^3/uL Red Blood Count 4.51 4.5-5.90 10^6/uL Hemoglobin 12.7 L 13.5-17.5 g/dL Hematocrit 37.6 L 41.0-53.0 % Mean Corpuscular Volume 83.4 80.0-100.0 fL Mean Corpuscular Hemoglobin 28.2 28.0-32.0 pg Mean Corpuscular Hemoglobin Concent 33.8 32.0-36.0 g/dL Red Cell Distribution Width 17.0 H 11.8-14.3 % Platelet Count 225 140-450 10^3/uL Mean Platelet Volume 7.2 6.9-10.8 fL Neutrophils (%) (Auto) 68.5 37.0-80.0 % Lymphocytes (%) (Auto) 21.6 10.0-50.0 % Monocytes (%) (Auto) 7.4 0.0-12.0 % Eosinophils (%) (Auto) 2.3 0.0-7.0 % Basophils (%) (Auto) 0.2 0.0-2.0 % Neutrophils # (Auto) 4.6 1.6-8.6 10 ^3/uL Lymphocytes # (Auto) 1.4 0.4-5.4 10 ^3/uL Monocytes # (Auto) 0.5 0-1.3 10 ^3/uL Eosinophils # (Auto) 0.2 0-0.8 10 ^3/uL Basophils # (Auto) 0 0-0.2 10 ^3/uL Nucleated Red Blood Cells 0.0 % Sodium Level 143 136-145 mmol/L Potassium Level 3.9 3.5-5.1 mmol/L Chloride Level 109 H 98-107 mmol/L Carbon Dioxide Level 27 20-31 mmol/L Anion Gap 7 5-15 Blood Urea Nitrogen 10 9-23 mg/dL Creatinine 0.60 L 0.700-1.30 mg/dL Glomerular Filtration Rate Calc 129 >90 mL/min BUN/Creatinine Ratio 16.7 10.0-20.0 Serum Glucose 167 H 74-106 mg/dL Calcium Level 9.4 8.7-10.4 mg/dL Vancomycin Level Trough 17.9 H 5-10 ug/mL Random Vancomycin Level 10.1 H 5-10 ug/mL Test 06/06/25 11:56 06/05/25 04:32 06/04/25 19:27 06/04/25 17:03 Range/Units Total Bilirubin 0.4 0.2-1.0 mg/dL Aspartate Amino Transferase (AST) 13 13-40 U/L Alanine Aminotransferase (ALT) 19 7-40 U/L Alkaline Phosphatase 99 46-116 U/L Total Protein 6.6 5.7-8.2 g/dL Albumin 4.2 3.2-4.8 g/dL Hepatitis B Surface Antibody Positive H Negative Hepatitis C Antibody Negative Negative Urine Color Yellow Yellow Urine Clarity Turbid H Clear Urine pH 5.5 5.0-9.0 Urine Specific [place] > 1.050 H 1.001-1.035 Urine Protein 1+ H Negative Urine Ketones Negative Negative Urine Blood Negative Negative /uL Urine Nitrite Negative Negative Urine Bilirubin Negative Negative Urine Urobilinogen Normal Negative mg/dL Urine Leukocyte Esterase Negative Negative /uL Urine RBC 9 0 - 3 /hpf Urine Microscopic WBC 13 H 0-3 /HPF Urine Squamous Epithelial Cells None seen <5 /hpf Urine Calcium Oxalate Crystals Few None Seen Urine Bacteria None seen None Seen /hpf Urine Mucus Moderate None Seen Urine Glucose Normal Normal mg/dL Urine Opiates Screen Neg NEGATIVE Urine Fentanyl Screen Neg NEGATIVE Urine Barbiturates Screen Neg NEGATIVE Urine Phencyclidine Screen Neg NEGATIVE Urine Amphetamines Screen Neg NEGATIVE Urine Benzodiazepines Screen Neg NEGATIVE Urine Cocaine Screen Neg NEGATIVE Urine Cannabinoids Screen Neg NEGATIVE Erythrocyte Sedimentation Rate 28 H 0-20 mm/hr Hemoglobin A1c 5.6 <5.7 % A1C Test 06/04/25 14:28 Range/Units Prothrombin Time 10.3 9.3-11.8 sec Prothrombin Time INR 0.97 0.9-1.15 Activated Partial Thromboplast Time 27.1 24.5-34.5 SEC Magnesium Level 2.0 1.6-2.6 mg/dL C-Reactive Protein High Sensitivity 0.24 <1.0 mg/dL Microbiology Date/Time Source Procedure Growth Status 06/07/25 09:00 Nose MRSA Screen - Final Complete 06/05/25 13:15 Voided Urine Urine Culture - Final Complete Problems(with codes): (1) Abscess in epidural space of cervical spine (2) Wound of sacral region Plan/Recommendation ASSESSMENT AND PLAN: ID Problem List: \\-- History of stroke (2024) \\-- Epidural abscess status post laminectomy (2024) \\-- Sacral osteomyelitis with wound infection (current) \\-- Status post sacral wound debridement and wound vac \\-- Atrophy of lower extremities \\-- Leg numbness Assessment This is a 34-year-old male with a past medical history significant for stroke in 2024 and prior epidural abscess (treated with laminectomy in 2024) who presents with a sacral wound infection and underlying osteomyelitis. Patient was previously bedbound, is now ambulatory with a walker. Recently developed purulent drainage from a sacral wound (with suspected fistulous tract) noted in primary care, and subsequent clinical course notable for wound atrophy, thin habitus, and lower extremity muscular atrophy. Wound cultures grew E. coli (resistant to Levaquin/ciprofloxacin, sensitive to cephalosporins), group Streptococcus, and Enterococcus (vancomycin CELESTE per sensitivity). Urine culture negative. Pelvic CT demonstrates osteomyelitis of lower sacrum and coccyx with soft tissue extension and infiltration of the gluteal musculature. Patient underwent surgical debridement (June 06, 2025) with wound vac applied. MRI T-spine pending to further evaluate for recurrent/remote epidural abscess. Neurology and general surgery have been consulted. Physical therapy/occupational therapy evaluation ongoing. Plan: \\-- Switch antibiotics to vancomycin and ceftriaxone 2 g IV every 12 hours, pending status of possible epidural abscess; may transition to daily ceftriaxone if MRI shows resolution. \\-- Blood cultures to be obtained. \\-- Continue wound vac care as per general surgery recommendations. \\-- Continue physical therapy and occupational therapy for rehabilitation and mobility needs. \\-- Monitor for signs of systemic infection. \\-- Outpatient follow up with Infectious Disease in 4-6 weeks to ensure osteomyelitis is resolving. \\-- Pending MRI thoracic spine with and without contrast (supine), as per neurology recommendations, to rule out residual or recurrent epidural abscess. \\-- Patient to remain NPO after midnight if further procedures indicated. \\-- Six-week course of IV antibiotics anticipated. \\-- Monitor wound healing and clinical improvement closely. Isolation Precautions: Standard Assessment and plan discussed with the patient as written above Plan is subject to change pending incorporation of new incoming information/diagnostics. Updates may be added as addendum at the bottom (OR TOP) of this note Thank you for consult. Infectious Disease will continue to follow. Please con tact ID for further questions or concerns. Monique Vásquez M.D. [facility] Ph: ? ? \\ History: The patient's chart and medications were reviewed in detail and the patient was seen and examined. History obtained from: patient Mr. Mihir Cain is a 34-year-old male with a past medical history of stroke in 2024 and presumed epidural abscess with severe central canal stenosis and cord compression. He was treated with a surgical laminectomy in 2024, and required rehabilitation for four to five months. He was initially bedbound and now ambulates with the assistance of a walker. Recently, purulent drainage was noted at the primary care clinic arising from his sacral wound, concerning for a fistulous tract. The wound has no current tenderness and appears to be closed on exam. Cultures from the superficial wound grew E. coli (resistant to Levaquin/ciprofloxacin, sensitive otherwise), group Streptococcus, and Enterococcus species. Pelvic CT revealed osteomyelitis of the lower sacrum and coccyx, soft tissue abscess extension, and infiltration into the gluteal musculature. No overt abscess posterior to the right rectum. Patient underwent surgical debridement and application of wound vac on June 06, 2025. Neurology has been consulted; MRI thoracic spine and blood cultures are pending. Patient reports leg numbness, possibly indicative of incomplete recovery from prior epidural abscess. General surgery and wound care have been actively inv olved in his management. Review of Systems: A complete 10-system review was completed and negative except as noted in the HPI or here. -CONSTITUTIONAL: Denies fever, chills, weight loss. -HEENT: Denies vision or hearing changes. -RESPIRATORY: Denies shortness of breath or cough. -CARDIOVASCULAR: Denies chest pain or palpitations. -GASTROINTESTINAL: Denies abdominal pain, nausea, vomiting, or diarrhea. -GENITOURINARY: Denies dysuria or urinary frequency. -MUSCULOSKELETAL: Denies myalgia and joint pain, reports lower extremity atrophy and numbness. -SKIN: No new rashes or pruritus. Reports purulent drainage from sacral wound. -NEUROLOGICAL: Denies headache or syncope. Reports bilateral leg numbness. -PSYCHIATRIC: Denies recent anxiety or depression. Past Medical History: Diagnosis Date Stroke (2024) Epidural abscess (2024) Sacral osteomyelitis (2024) Past Surgical History: Laminectomy for epidural abscess (2024) Sacral wound debridement (2024) Home Medications: Prior to Admission: Metformin (dose and frequency not specified) Blood pressure medications (unspecified; specific agent, dose not provided) Current: Vancomycin (IV, hospital) Zosyn (IV, hospital, prior; now switching to ceftriaxone per above plan) Ambiguity: Specific doses/timings for home and inpatient medications not explicitly provided in transcript. Allergies: No known drug allergies reported. Family History: Not discussed. Social History: Smoking: Denies any tobacco use. Alcohol: Denies use. IV Drug Use: Denies. Living situation/employment: Not discussed. Sexual activity: Not discussed. Objective: Vital Signs on Arrival: BP: 134/93 mmHg Pulse: 93 bpm (noted as "tachycardic to 97" in transcript) RR: 17/min BMI: 27.5 (unit ambiguity; presumed kg/m) Room air; no O2 saturation value specified Most Recent Vital Signs: Not further specified in transcript beyond values above. Admission Weight: Not specified. Physical Exam: General: NAD. Thin habitus. Neck: Supple. No masses. HEENT: PERRL. Normal lids and conjunctiva. Moist mucous membranes. Oropharynx without lesions, exudates or excessive erythema. Normal appearance of the external aspects of the nose and ears. Heart: Regular rhythm, normal rate. No murmur. No lower extremity edema. Lungs: Normal respiratory effort. Clear to auscultation bilaterally. No wheezes. No crackles. Abdomen: Soft. Non-tender. Non-distended. No masses or abdominal hernia. Msk: No digital cyanosis. Noted lower extremity muscular atrophy, normal strength and tone in all 4 limbs. Skin: Warm and dry, no rashes. Sacral wound with no tenderness, appears closed, previously with purulent drainage. Neuro: Alert. No facial droop or slurred speech. Extra-ocular movements intact. Sensation: Bilateral leg numbness. Sensation otherwise intact to soft touch in all 4 limbs. Psych: Appropriate mood. Full affect. Oriented to person, place, time, and situation. Lines: Not specified in transcript. Diagnostic Studies: Available diagnostic studies reviewed personally; significant results outlined below. Pertinent Imaging: Pelvic CT: Osteomyelitis of lower sacrum and coccyx with soft tissue extension into the gluteal musculature; no discrete abscess seen posterior to the rectum. MRI T-spine: Pending (recommended by neurology). Urine cultures: No growth to date. Wound cultures: E. coli (Levaquin/ciprofloxacin resistant, cephalosporin sensitive), group Streptococcus, Enterococcus (vancomycin CELESTE specified). If further details from labs or imaging become available, the note may be updated as an addendum. Plan discussed with: Patient MONIQUE VÁSQUEZ MD Jun 09, 2025 18:14
--- NOTE | 2025-06-09 18:53 | DVHPN2 ---
Consult Progress Note Date Seen: Jun 09, 2025 Subjective Patient reports: Other (no back pain except at the dacral elvel , unable to undergo an MRI due to rods in spine . mild drainage) Objective vital signs Vital Sign Date Time Temp Pulse Resp B/P (MAP) Pulse Ox O2 Delivery O2 Flow Rate FiO2 06/09/25 18:27 92 147/98 (114) 06/09/25 17:04 98.4 18 99 98.4 06/09/25 08:00 Room Air* 0 21 Total Intake and Output 06/08/25 06/08/25 06/09/25 15:00 23:00 07:00 Intake Total 300 ml 800 ml 1040 ml Output Total 750 ml 700 ml Balance 300 ml 50 ml 340 ml medications Current Medications Medications Dose Ordered Sig/Anita Route Start Time Stop Time Status Last Admin Dose Admin Sodium Chloride 10 ml Q8HR IV 06/04/25 22:00 06/09/25 13:36 10 ML Ondansetron HCl 4 mg Q4HP PRN IV 06/04/25 15:45 Acetaminophen 650 mg Q6HP PRN PO 06/04/25 15:45 Morphine Sulfate 2 mg Q4HPRN PRN IV 06/04/25 15:45 Nitroglycerin 0.4 mg Q5MINP PRN SL 06/04/25 15:45 Morphine Sulfate 2 mg Q30M PRN IV 06/04/25 15:45 Pantoprazole Sodium 40 mg DAILY IV 06/05/25 10:00 06/09/25 10:32 40 MG Diagnostic Test (Pha) 1 strip ACHS 06/04/25 17:00 06/09/25 17:44 1 STRIP Insulin Human Regular ACHS SC 06/04/25 17:00 06/09/25 17:47 3 UNITS Dextrose 50 ml UD PRN IV 06/04/25 16:15 Hydralazine HCl 10 mg Q6HP PRN IV 06/04/25 16:15 Heparin Sodium/ Dextrose 250 ml @ 18.648 mls/ hr [id number] IV 06/05/25 09:45 UNV Heparin Sodium (Porcine) 5,000 units Q12HR SC 06/05/25 10:30 06/09/25 10:30 5,000 UNITS Insulin Glargine 10 units QAM SC 06/07/25 11:15 Ampicillin Sodium 2 gm/Sodium Chloride 100 ml @ 100 mls/hr Q6HR IV 06/08/25 18:00 06/09/25 17:51 100 MLS/HR Ertapenem 1 gm/ Sodium Chloride 50 ml @ 100 mls/hr DAILY IV 06/09/25 10:00 06/09/25 10:32 100 MLS/HR laboratory and microbiology Laboratory Tests 06/09/25 10:28 Test 06/09/25 10:28 Range/Units Serum Glucose 167 H 74-106 mg/dL Problem List/Assessment/Plan Problems(with codes): (1) Abscess in epidural space of cervical spine (2) Wound of sacral region Problem List/Assessment/Plan ASSESSMENT AND PLAN: ID Problem List: \-- History of stroke (2024) \-- Epidural abscess status post laminectomy (2024) \-- Sacral osteomyelitis with wound infection (current) \-- Status post sacral wound debridement and wound vac \-- Atrophy of lower extremities \-- Leg numbness Assessment This is a 34-year-old male with a past medical history significant for stroke in 2024 and prior epidural abscess (treated with laminectomy in 2024) who presents with a sacral wound infection and underlying osteomyelitis. Patient was previously bedbound, is now ambulatory with a walker. Recently developed purulent drainage from a sacral wound (with suspected fistulous tract) noted in primary care, and subsequent clinical course notable for wound atrophy, thin habitus, and lower extremity muscular atrophy. Wound cultures grew E. coli (resistant to Levaquin/ciprofloxacin, sensitive to cephalosporins), group Streptococcus, and Enterococcus (vancomycin CELESTE per sensitivity). Urine culture negative. Pelvic CT demonstrates osteomyelitis of lower sacrum and coccyx with soft tissue extension and infiltration of the gluteal musculature. Patient underwent surgical debridement (June 06, 2025) with wound vac applied. MRI T-spine pending to further evaluate for recurrent/remote epidural abscess. Neurology and general surgery have been consulted. Physical therapy/occupational therapy evaluation ongoing. 06/09:unable to get MRI due to rods in patients spine Plan: \-- continue vancomycin and ceftriaxone 2 g IV every 12 hours, pending status of possible epidural abscess; may transition to daily ceftriaxone if CT shows resolution. \-- Blood cultures to be obtained. \-- Continue wound vac care as per general surgery recommendations. \-- Continue physical therapy and occupational therapy for rehabilitation and mobility needs. \-- Monitor for signs of systemic infection. \-- Outpatient follow up with Infectious Disease in 4-6 weeks to ensure osteomyelitis is resolving. \-- Pending CT thoracic spine with and without contrast (supine), as per neurology recommendations, to rule out residual or recurrent epidural abscess. \-- Patient to remain NPO after midnight if further procedures indicated. \-- Six-week course of IV antibiotics anticipated. \-- Monitor wound healing and clinical improvement closely. Isolation Precautions: Standard Plan discussed with: Other Dietary Evaluation Review Comments: 1) Dev 1 pk BID 2) Vit C 500mg BID, zinc sulfate 220mg BID x 10 days, MVI w mineral 1 tab daily 3) CCHO 75gm + 2gm Na diet Expected Outcomes/Goals: Wound to improve blood glucose WNL Fu 3-5 days MONIQUE DE LEON MD Jun 09, 2025 18:53
[2025-06-09] MEDS ORDERED: VANCOMYCIN PER PHARMACY 0 MG IV SCH (19:00)
[2025-06-09] MEDS: VANCOMYCIN 1GM/200ML PM 200 ML IV SCH (19:54)
[2025-06-09] MEDS: cefTRIAXone 2GM/50ML D5W 50 ML IV SCH (21:24)
[2025-06-10 01:00] VITALS: BP 140/81; PULSE 92; RESP 18; TEMP 98.1; O2SAT 99
[2025-06-10 05:00] VITALS: BP 149/98; PULSE 89; RESP 19; TEMP 98.3; O2SAT 98
[2025-06-10 07:31] LABS: Hematocrit 34.3 % (41.0-53.0); Hemoglobin 12.1 g/dL (13.5-17.5); Mean Corpuscular Hemoglobin 29.8 pg (28.0-32.0); Mean Corpuscular Volume 84.2 fL (80.0-100.0); Nucleated Red Blood Cells % 0.1 %
[2025-06-10 07:34] LABS: Anion Gap 9 (5-15); Carbon Dioxide 25 mmol/L (20-31); Potassium 3.7 mmol/L (3.5-5.1); Sodium 142 mmol/L (136-145)
[2025-06-10 07:35] LABS: Calcium 9.3 mg/dL (8.7-10.4)
[2025-06-10 07:41] LABS: BUN/Creatinine Ratio 16.4 (10.0-20.0); Blood Urea Nitrogen 9 mg/dL (9-23)
[2025-06-10 07:44] LABS: Chloride 108 mmol/L (98-107); Glucose 132 mg/dL (74-106)
[2025-06-10 09:00] VITALS: BP 144/87; PULSE 84; RESP 19; TEMP 98.6; O2SAT 98
--- NOTE | 2025-06-10 09:18 | DVH ---
PROCEDURE: MRI thoracic spine without contrast. INDICATION: epidural COMPARISON: MRI of the cervical spine dated 01/11/2025. TECHNIQUE: MRI thoracic spine without intravenous contrast utilizing multiplanar, multisequence tech nique. FINDINGS: The marrow signal is homogenous. The vertebral body heights are maintained. Alignment of the thoracic spine is preserved. There is posterior disc bulge T7-T8 and T11-T12. No significant spinal stenosis in the thoracic spine. No significant neural foraminal stenosis in the thoracic spine. There is a 2 mm T2 hyperintense structure within the thoracic spinal cord at T1-T2 to T3-T4 which may reflect a syrinx. There is no epidural fluid collection or mass effect. There is a cystic structure in the prevertebral soft tissues of the lower cervical spine at C7-T1 mejia suring 4.5 cm. Other: 12.3 Impression: 1. Disc bulges at T7-T8 and T11-T12 without significant spinal or neural foraminal stenosis in the th oracic spine. 2. No epidural fluid collection on this unenhanced MRI. 3. Indeterminate cystic structure at C7-T1. Unclear if this represents a fluid collection, cystic ma ss or fluid in the esophagus. CT of the neck with intravenous contrast is recommended for further ev aluation.
[2025-06-10] MEDS: IOHEXOL 300 MG/ML 100ML BOTTLE IJ ONE (11:54)
[2025-06-10 12:31] VITALS: BP 142/99; PULSE 101; RESP 18; TEMP 98.6; O2SAT 99
--- NOTE | 2025-06-10 15:21 | DVH ---
EXAM: CT CERVICAL WO W CONTRAST HISTORY: r/o epidural abscess COMPARISON: MRI CERVICAL WITH CONTRAST on DOS: 01/11/25 CTDIvol 24 mGy, DLP 604 mGy*cm. TECHNIQUE: Multiple axial CT images of the spine were obtained using bone algorithm. Axial and coron al reformatting was done. Bone and soft tissue windows were reviewed. FINDINGS: No significant listhesis. Vertebral body heights are maintained. No evidence of acute fracture. Post C5-C6 ACDF without evidence of hardware complication. Disc heights are relatively maintained. No significant osseous spinal or neural foraminal stenosis. No evidence of abnormal enhancement within the spinal canal. Paraspinal musculature is unremarkable. There is a patulous and debris-filled cervical esophagus. The thyroid is unremarkable. The lung apices are clear. Mild mucosal thickening in the right maxillary s inus. The mastoids are clear. Right maxillary molar dental kayli. Scattered dental amalgam. No cervic al lymphadenopathy. IMPRESSION: No acute fracture or subluxation in the cervical spine. Post C5-C6 ACDF without evidence of complications. Patulous and debris-filled cervical esophagus. No CT evidence of epidural abscess. Please note that MRI is more sensitive for evaluation of spinal c anal pathology. Dental disease.
--- NOTE | 2025-06-10 15:31 | DVH ---
EXAM: CT THORACIC SPINE WO W HISTORY: r/o epidural abscess COMPARISON: MRI THORACIC SPINE WITHOUT on DOS: 06/10/25 CTDIvol 32 mGy, DLP 1222 mGy*cm. TECHNIQUE: Multiple axial CT images of the spine were obtained using bone algorithm. Axial and coron al reformatting was done. Bone and soft tissue windows were reviewed. FINDINGS: No significant listhesis. Vertebral body heights are maintained. No acute fracture. [id number] multilevel degenerative disc changes in the mid / lower thoracic spine. Several sma ll Schmorl's nodes. Minimal disc osteophyte complex which is better seen on same day MRI. No high-gra de osseous spinal canal or neural foraminal narrowing. No evidence of abnormal enhancement within the spinal canal. Patulous and debris-filled cervical esophagus. The visualized lungs are clear. Paraspinal musculature is unremarkable. IMPRESSION: No CT evidence of thoracic epidural collection. No acute fracture or traumatic subluxation. No high-grade spinal or neural foraminal stenosis. The cystic structure seen on same-day MRI corresponds with a patulous and fluid-filled cervical esoph zachary.
--- NOTE | 2025-06-10 16:35 | DVHPNRES ---
Progress Note Date Seen: Jun 10, 2025 Resident Creating Document: RAFAELA GARCIAS RESIDENT Has the PT tested + for MRSA If YES, has PT been informed?: No Medical Necessity Reason Pt with a Central, PICC or Fol: No Subjective Review of Systems Anjum Cain is 34-year-old male with a PMH of type 2 DM, HTN presented to the ED after being sent by his PCP for the wound evaluation on the back. Patient reported in December he underwent an some cyst surgery in the cervical region at the time he noted to have a sacral ulcer and he was on rehabilitation for 4-5 months after the surgery for the spine and he said the wound has been taken care by the people in the facility but no systemic signs of infection or inflammation noted and patient was recently discharged from the facility. Today patient went to the primary clinic to establish the care, on examination they noted a purulent drainage from fistula as like tract from the sacral wound but no signs of pain, redness, fever, chills, recent trauma and other associated symptoms so they brought him to ED for further evaluation and management. Patient also reported initially he is bed-bound but not anymore now he can able to walk with the help of walker. PMH: Type 2 DM, HTN PSH: Recent cervical spine surgery Family history noncontributory Social history: Lives at home. Denies smoking, alcohol and other drug abuse Allergies: No known allergies Home medications: Metformin diabetes but unable to recall medications for high blood pressure The patient was seen and examined by me at the bedside. Overnight events were reviewed. Patient is status post debridement of sacral ulcer/non healed pilonidal surgical site, and reports no pain at the site. Patient reports he feels fine today. He denies any fever, chills or any other new complaints. Rest of the ROS is negative. Objective vital signs Vital Sign Date Time Temp Pulse Resp B/P (MAP) Pulse Ox O2 Delivery O2 Flow Rate FiO2 06/10/25 12:31 98.6 101 18 142/99 (113) 99 98.6 06/10/25 08:00 Room Air* 0 21 Total Intake and Output 06/09/25 06/09/25 06/10/25 15:00 23:00 07:00 Intake Total 240 ml 950 ml 625 ml Output Total 750 ml 1000 ml Balance 240 ml 200 ml -375 ml medications Current Medications Medications Dose Ordered Sig/Anita Route Start Time Stop Time Status Last Admin Dose Admin Sodium Chloride 10 ml Q8HR IV 06/04/25 22:00 06/10/25 15:42 10 ML Ondansetron HCl 4 mg Q4HP PRN IV 06/04/25 15:45 Acetaminophen 650 mg Q6HP PRN PO 06/04/25 15:45 Morphine Sulfate 2 mg Q4HPRN PRN IV 06/04/25 15:45 Nitroglycerin 0.4 mg Q5MINP PRN SL 06/04/25 15:45 Morphine Sulfate 2 mg Q30M PRN IV 06/04/25 15:45 Pantoprazole Sodium 40 mg DAILY IV 06/05/25 10:00 06/10/25 10:17 40 MG Diagnostic Test (Pha) 1 strip ACHS 06/04/25 17:00 06/10/25 12:22 1 STRIP Insulin Human Regular ACHS SC 06/04/25 17:00 06/10/25 12:24 2 UNITS Dextrose 50 ml UD PRN IV 06/04/25 16:15 Hydralazine HCl 10 mg Q6HP PRN IV 06/04/25 16:15 Heparin Sodium/ Dextrose 250 ml @ 18.648 mls/ hr [id number] IV 06/05/25 09:45 UNV Heparin Sodium (Porcine) 5,000 units Q12HR SC 06/05/25 10:30 06/10/25 10:21 5,000 UNITS Insulin Glargine 10 units QAM SC 06/07/25 11:15 Vancomycin HCl 0 ml @ 0 mls/hr UD IV 06/09/25 19:00 Ceftriaxone Sodium/Dextrose 50 ml @ 50 mls/hr Q12HR@09,21 IV 06/09/25 21:00 06/10/25 10:24 50 MLS/HR Vancomycin HCl 200 ml @ 200 mls/hr Q6H IV 06/09/25 20:00 06/10/25 15:42 200 MLS/HR Examination General Appearance: Alert, Oriented to time, place and person, Cooperative, Not in acute distress HEENT: Atraumatic, Mucous membranes moist/pink Respiratory: Clear to auscultation, Normal air movement, No added sounds Cardiovascular: Regular rate, Normal S1, Normal S2, No murmurs Abdominal: Active bowel sounds, Soft, no distention, no tenderness Extremities: No edema, Normal pulses, No tenderness/swelling Skin: Presence of bandage in the sacral region, no soakage; presence of scratch hernandez in bilateral tucker Neuro: Slight muscle wasting noted, no sensory deficits, weakness in left upper and lower extremities s/p cervical surgery, patient is walker dependent Psych/Mental Status: normal mental status laboratory and microbiology Laboratory Tests 06/10/25 06:41 Test 06/10/25 06:41 Range/Units Serum Glucose 132 H 74-106 mg/dL Microbiology Date/Time Source Procedure Growth Status 06/07/25 09:00 Nose MRSA Screen - Final Complete 06/05/25 13:15 Voided Urine Urine Culture - Final Complete Labs and/or images reviewed: Labs reviewed by me, Image(s) reviewed by me Problem List/Assessment/Plan Problem List/Assessment/Plan # Sacral abscess/ osteomyelitis # sacral decubitus ulcer, unspecified stage # non-healed pilonidal cyst And sinus # s/p debridement of non-healed pilonidal surgical site on 06/06/2025; wound VAC in place -CT pelvis with the contrast, There is osteomyelitis of the lower sacrum and coccyx with soft tissue abscess extending posteriorly and inferiorly and infiltrating the gluteal musculature. Although there is some pre coccygeal soft tissue swelling no distinct abscess is seen posterior to the rectum - wound consult and wound cultures -wound cultures revealed growth of E coli, Enterococcus faecalis - surgery is following -explained operative findings and procedure to patient, he is "surgically" stable. he could be treated at home with home health nurse and wound care with wound vac. Counseled patient the healing will take several weeks or months to be completed. - Initially Zosyn and vancomycin empiric was given, both antibiotics discontinued, based on culture and sensitivity report. Ertapenem and ampicillin was added according to the culture and sensitivity report and discontinued today. It was converted to vancomycin and ceftriaxone 2 g IV 12 hourly according to ID consult. - PICC line consultation - Infectious disease was consulted, suggested: -Blood culture, pending -patient follow up in 4 to 6 weeks to see osteomyelitis resolving -continuation of IV antibiotics for 6 weeks - CT thoracic spine without contrast shows: No CT evidence of thoracic epidural collection; No acute fracture or traumatic subluxation. No high-grade spinal or neural foraminal stenosis; The cystic structure seen on same-day MRI corresponds with a patulous and fluid-filled cervical esophagus. CT cervical spine without contrast, shows No acute fracture or subluxation in the cervical spine;Post C5-C6 ACDF without evidence of complications;Patulous and debris-filled cervical esophagus;No CT evidence of epidural abscess. Please note that MRI is more sensitive for evaluation of spinal canal pathology; Dental disease. # ? Acute complicated UTI - evident on urinalysis - ordered urine bacterial culture -antibiotics as above # type 2 DM with HbA1c pending - continuously monitored and glucose - mild ISS -insulin Lantus 10 mg added to the regimen. # uncontrolled HTN - continuously monitor - hydralazine p.r.n. - obtain Home medications List GI PPX: Protonix VTE ppx: Lovenox Diet: Regular Case discussed with Dr. Ibrahim, patient and nurse Plan discussed with: Patient, Other (rn) My Orders My Orders Orders - RAFAELA GARCIAS RESIDENT Procedure Category Date Status Time Basic Metabolic Panel LAB 06/11/25 Verified 04:00 Dietary Evaluation Review Comments: 1) Dev 1 pk BID 2) Vit C 500mg BID, zinc sulfate 220mg BID x 10 days, MVI w mineral 1 tab daily 3) CCHO 75gm + 2gm Na diet Expected Outcomes/Goals: Wound to improve blood glucose WNL Fu 3-5 days Addendum Addendum Addendum I was physically present for the cruz portions of the service provided to patient by THE RESIDENT. I have reviewed the documentation, discussed the case with resident and agree with the resident's documentation except as noted. Also the patient's clinical case was discussed with the patient's nurse. This medical document was created using an electronic medical record system with computerized dictation system. Although this document has been carefully reviewed, there might still be some phonetic and typographical errors. These areas are purely typographical due to imperfections of the software programs, and do not reflect any compromise in the patient's medical care. Late signature. Date of Service: Jun 10, 2025 Billing Provider: INGE IBRAHIM MD Common Visit Codes: [id number] INP/OBS CARE(HIGH) RAFAELA GARCIAS Jun 10, 2025 16:35 INGE IBRAHIM MD Jun 11, 2025 09:50
[2025-06-10 16:42] VITALS: BP 145/90; PULSE 97; RESP 18; TEMP 98.4; O2SAT 99
[2025-06-10 21:00] VITALS: BP 136/87; PULSE 83; RESP 20; TEMP 97.9; O2SAT 99
[2025-06-11] VITALS (7 sets, daily range): BP systolic 124–149; BP diastolic 82–104; PULSE 83–110; RESP 16–19; TEMP 97.6–98.7; O2SAT 98–100
[2025-06-11 07:47] LABS: Anion Gap 10 (5-15); Calcium 9.5 mg/dL (8.7-10.4); Carbon Dioxide 26 mmol/L (20-31); Chloride 106 mmol/L (98-107); Potassium 4.1 mmol/L (3.5-5.1); Sodium 142 mmol/L (136-145)
[2025-06-11 07:53] LABS: BUN/Creatinine Ratio 16.2 (10.0-20.0); Blood Urea Nitrogen 11 mg/dL (9-23); Glucose 187 mg/dL (74-106)
[2025-06-11 08:24] LABS: INR 0.97 (0.9-1.15); Partial Thromboplastin Time 26.4 SEC (24.5-34.5); Prothrombin Time 10.3 sec (9.3-11.8)
[2025-06-11] MEDS ORDERED: VANCOMYCIN 1GM/200ML PM 200 ML IV SCH (14:00)
[2025-06-11] MEDS: LIDOCAINE 1% (LOCAL ANESTH.) PF 5ml SDV ID ONE (14:15)
[2025-06-11] MEDS: VANCOMYCIN 1GM/200ML PM 200 ML IV SCH (15:21)
--- NOTE | 2025-06-11 15:30 | DVHPNRES ---
Progress Note Date Seen: Jun 11, 2025 Resident Creating Document: ANETA BLANTON RESIDENT Has the PT tested + for MRSA If YES, has PT been informed?: No Medical Necessity Reason Pt with a Central, PICC or Fol: No Subjective Review of Systems Anjum Cain is 34-year-old male with a PMH of type 2 DM, HTN presented to the ED after being sent by his PCP for the wound evaluation on the back. Patient reported in December he underwent an some cyst surgery in the cervical region at the time he noted to have a sacral ulcer and he was on rehabilitation for 4-5 months after the surgery for the spine and he said the wound has been taken care by the people in the facility but no systemic signs of infection or inflammation noted and patient was recently discharged from the facility. Today patient went to the primary clinic to establish the care, on examination they noted a purulent drainage from fistula as like tract from the sacral wound but no signs of pain, redness, fever, chills, recent trauma and other associated symptoms so they brought him to ED for further evaluation and management. Patient also reported initially he is bed-bound but not anymore now he can able to walk with the help of walker. PMH: Type 2 DM, HTN PSH: Recent cervical spine surgery Family history noncontributory Social history: Lives at home. Denies smoking, alcohol and other drug abuse Allergies: No known allergies Home medications: Metformin for diabetes but unable to recall medications for high blood pressure 06/11 interval events: The patient was seen and examined at the bedside. Overnight events reviewed. The patient denies any pain at wound debridement site, chest pain, shortness of green or any other complaints. Review of the rest of the system was negative. Objective vital signs Vital Sign Date Time Temp Pulse Resp B/P (MAP) Pulse Ox O2 Delivery O2 Flow Rate FiO2 06/11/25 13:00 98.3 110 18 126/93 (104) 98 98.3 06/11/25 08:00 Room Air* 0 21 Total Intake and Output 06/10/25 06/10/25 06/11/25 15:00 23:00 07:00 Intake Total 250 ml 1430 ml 300 ml Output Total 2250 ml 1175 ml Balance 250 ml -820 ml -875 ml medications Current Medications Medications Dose Ordered Sig/Anita Route Start Time Stop Time Status Last Admin Dose Admin Sodium Chloride 10 ml Q8HR IV 06/04/25 22:00 06/11/25 06:37 10 ML Ondansetron HCl 4 mg Q4HP PRN IV 06/04/25 15:45 Acetaminophen 650 mg Q6HP PRN PO 06/04/25 15:45 Morphine Sulfate 2 mg Q4HPRN PRN IV 06/04/25 15:45 Nitroglycerin 0.4 mg Q5MINP PRN SL 06/04/25 15:45 Morphine Sulfate 2 mg Q30M PRN IV 06/04/25 15:45 Pantoprazole Sodium 40 mg DAILY IV 06/05/25 10:00 06/11/25 08:40 40 MG Diagnostic Test (Pha) 1 strip ACHS 06/04/25 17:00 06/11/25 12:13 1 STRIP Insulin Human Regular ACHS SC 06/04/25 17:00 06/11/25 11:37 2 UNITS Dextrose 50 ml UD PRN IV 06/04/25 16:15 Hydralazine HCl 10 mg Q6HP PRN IV 06/04/25 16:15 Heparin Sodium/ Dextrose 250 ml @ 18.648 mls/ hr [id number] IV 06/05/25 09:45 UNV Heparin Sodium (Porcine) 5,000 units Q12HR SC 06/05/25 10:30 06/11/25 08:50 5,000 UNITS Insulin Glargine 10 units QAM SC 06/07/25 11:15 Vancomycin HCl 0 ml @ 0 mls/hr UD IV 06/09/25 19:00 Ceftriaxone Sodium/Dextrose 50 ml @ 50 mls/hr Q12HR@ IV 06/09/25 21:00 06/11/25 08:40 50 MLS/HR Vancomycin HCl 200 ml @ 200 mls/hr Q8H IV 06/11/25 15:00 06/11/25 15:21 200 MLS/HR Sodium Chloride 10 ml QSHIFT@10,22 IV 06/11/25 22:00 Examination General Appearance: Alert, Oriented to time, place and person, Cooperative, Not in acute distress HEENT: Atraumatic, Mucous membranes moist/pink Respiratory: Clear to auscultation, Normal air movement, No added sounds Cardiovascular: Regular rate, Normal S1, Normal S2, No murmurs Abdominal: Active bowel sounds, Soft, no distention, no tenderness Extremities: No edema, Normal pulses, No tenderness/swelling Skin: Presence of dry bandage in the sacral region Neuro: Slight muscle wasting noted, no sensory deficits, weakness in left upper and lower extremities s/p cervical surgery, patient is walker dependent laboratory and microbiology Laboratory Tests 06/11/25 06:59 06/10/25 06:41 Test 06/11/25 06:59 Range/Units Serum Glucose 187 H 74-106 mg/dL Microbiology Date/Time Source Procedure Growth Status 06/09/25 19:03 Blood Blood Culture - Preliminary NO GROWTH AFTER 24 HOURS OF INCUBATION. Resulted 06/07/25 09:00 Nose MRSA Screen - Final Complete 06/05/25 13:15 Voided Urine Urine Culture - Final Complete Labs and/or images reviewed: Labs reviewed by me, Image(s) reviewed by me Problem List/Assessment/Plan Problem List/Assessment/Plan Problem List/Assessment/Plan # Sacral abscess/ osteomyelitis # sacral decubitus ulcer, unspecified stage # non-healed pilonidal cyst And sinus # s/p debridement of non-healed pilonidal surgical site on 06/06/2025; wound VAC in place -CT pelvis with the contrast, There is osteomyelitis of the lower sacrum and coccyx with soft tissue abscess extending posteriorly and inferiorly and infiltrating the gluteal musculature. Although there is some pre coccygeal soft tissue swelling no distinct abscess is seen posterior to the rectum - wound consult and wound cultures -wound cultures revealed growth of E coli, Enterococcus faecalis - surgery is following -explained operative findings and procedure to patient, he is "surgically" stable. he could be treated at home with home health nurse and wound care with wound vac. Counseled patient the healing will take several weeks or months to be completed. - Initially Zosyn and vancomycin empiric was given, both antibiotics discontinued, based on culture and sensitivity report. Ertapenem and ampicillin was added according to the culture and sensitivity report and discontinued today. It was converted to vancomycin and ceftriaxone 2 g IV 12 hourly according to ID consult. - PICC line started, we will continue IV antibiotic for 6 weeks. - Infectious disease was consulted, suggested: -Blood culture, pending -patient follow up in 4 to 6 weeks to see osteomyelitis resolving -continuation of IV antibiotics for 6 weeks - CT thoracic spine without contrast shows: No CT evidence of thoracic epidural collection; No acute fracture or traumatic subluxation. No high-grade spinal or neural foraminal stenosis; The cystic structure seen on same-day MRI corresponds with a patulous and fluid-filled cervical esophagus. CT cervical spine without contrast, shows No acute fracture or subluxation in the cervical spine;Post C5-C6 ACDF without evidence of complications;Patulous and debris-filled cervical esophagus;No CT evidence of epidural abscess. Please note that MRI is more sensitive for evaluation of spinal canal pathology; Dental disease. # ? Acute complicated UTI - evident on urinalysis - ordered urine bacterial culture -antibiotics as above # type 2 DM with HbA1c pending - continuously monitored and glucose - mild ISS -insulin Lantus 10 mg added to the regimen. # uncontrolled HTN - continuously monitor - hydralazine p.r.n. - obtain Home medications List GI PPX: Protonix VTE ppx: Lovenox Diet: Regular Plan discussed with: Patient, Other (RN) Dietary Evaluation Review Comments: 1) Dev 1 pk BID 2) Vit C 500mg BID, zinc sulfate 220mg BID x 10 days, MVI w mineral 1 tab daily 3) CCHO 75gm + 2gm Na diet Expected Outcomes/Goals: Wound to improve blood glucose WNL Fu 3-5 days Date of Service: Jun 11, 2025 Billing Provider: CRISTIAN HERNANDEZ MD Common Visit Codes: [id number] INP/OBS CARE(HIGH) ANETA BLANTON RESIDENT Jun 11, 2025 15:30 CRISTIAN HERNANDEZ MD Jun 11, 2025 22:31
[2025-06-11] MEDS: SODIUM CHLOR 0.9% PF (SALINE LOCK) 10ML VIAL/SYR IV SCH (21:48)
[2025-06-12 01:00] VITALS: BP 135/86; PULSE 97; RESP 18; TEMP 98.2; O2SAT 98
[2025-06-12 05:00] VITALS: BP 131/90; PULSE 94; RESP 18; TEMP 98; O2SAT 99
[2025-06-12 07:30] LABS: Hematocrit 35.6 % (41.0-53.0); Hemoglobin 12.4 g/dL (13.5-17.5); Mean Corpuscular Hemoglobin 29.2 pg (28.0-32.0); Mean Corpuscular Volume 83.3 fL (80.0-100.0); Nucleated Red Blood Cells % 0.1 %
[2025-06-12 07:43] LABS: Alanine Aminotransferase 24 U/L (7-40); Albumin 3.8 g/dL (3.2-4.8); Alkaline Phosphatase 95 U/L (46-116); Anion Gap 12 (5-15); BUN/Creatinine Ratio 21.7 (10.0-20.0); Blood Urea Nitrogen 13 mg/dL (9-23); Calcium 9.8 mg/dL (8.7-10.4); Carbon Dioxide 26 mmol/L (20-31); Chloride 104 mmol/L (98-107); Potassium 3.6 mmol/L (3.5-5.1); Sodium 142 mmol/L (136-145); Total Protein 6.0 g/dL (5.7-8.2)
[2025-06-12 07:44] LABS: Bilirubin, Total 0.3 mg/dL (0.2-1.0); Glucose 125 mg/dL (74-106)
[2025-06-12 08:23] VITALS: BP 132/93; PULSE 87; RESP 20; TEMP 97.6; O2SAT 98
[2025-06-12 12:27] VITALS: BP 122/94; PULSE 103; RESP 21; TEMP 96.2; O2SAT 97
[2025-06-12] MEDS: VANCOMYCIN 1GM/200ML PM 200 ML IV SCH (16:08)
[2025-06-12 17:08] VITALS: BP 137/92; PULSE 82; RESP 17; TEMP 98.9; O2SAT 98
--- NOTE | 2025-06-12 17:09 | DVHDSRES ---
Discharge Summary Date of Admission Resident Creating Document: ANETA BLANTON Jun 04, 2025 at 15:37 Date of Discharge: Jun 12, 2025 Admitting Diagnosis Ulcer in the back in sacral region, cervical spine cyst Uncontrolled diabetes mellitus Labs/Diagnostic Data: Laboratory Results Test 06/12/25 16:26 06/12/25 13:50 06/12/25 06:41 06/11/25 06:59 POC Glucose 187 mg/dl (70-106) Vancomycin Level Trough 14.3 ug/mL (5-10) White Blood Count 6.0 10^3/uL (4.4-10.8) Red Blood Count 4.27 10^6/uL (4.5-5.90) Hemoglobin 12.4 g/dL (13.5-17.5) Hematocrit 35.6 % (41.0-53.0) Mean Corpuscular Volume 83.3 fL (80.0-100.0) Mean Corpuscular Hemoglobin 29.2 pg (28.0-32.0) Mean Corpuscular Hemoglobin Concent 35.0 g/dL (32.0-36.0) Red Cell Distribution Width 16.5 % (11.8-14.3) Platelet Count 196 10^3/uL (140-450) Mean Platelet Volume 7.7 fL (6.9-10.8) Neutrophils (%) (Auto) 65.5 % (37.0-80.0) Lymphocytes (%) (Auto) 25.0 % (10.0-50.0) Monocytes (%) (Auto) 6.5 % (0.0-12.0) Eosinophils (%) (Auto) 2.7 % (0.0-7.0) Basophils (%) (Auto) 0.3 % (0.0-2.0) Neutrophils # (Auto) 3.9 10 ^3/uL (1.6-8.6) Lymphocytes # (Auto) 1.5 10 ^3/uL (0.4-5.4) Monocytes # (Auto) 0.4 10 ^3/uL (0-1.3) Eosinophils # (Auto) 0.2 10 ^3/uL (0-0.8) Basophils # (Auto) 0 10 ^3/uL (0-0.2) Nucleated Red Blood Cells 0.1 % Sodium Level 142 mmol/L (136-145) Potassium Level 3.6 mmol/L (3.5-5.1) Chloride Level 104 mmol/L (98-107) Carbon Dioxide Level 26 mmol/L (20-31) Anion Gap 12 (5-15) Blood Urea Nitrogen 13 mg/dL (9-23) Creatinine 0.60 mg/dL (0.700-1.30) Glomerular Filtration Rate Calc 129 mL/min (>90) BUN/Creatinine Ratio 21.7 (10.0-20.0) Serum Glucose 125 mg/dL (74-106) Calcium Level 9.8 mg/dL (8.7-10.4) Total Bilirubin 0.3 mg/dL (0.2-1.0) Aspartate Amino Transferase (AST) 15 U/L (13-40) Alanine Aminotransferase (ALT) 24 U/L (7-40) Alkaline Phosphatase 95 U/L (46-116) Total Protein 6.0 g/dL (5.7-8.2) Albumin 3.8 g/dL (3.2-4.8) Prothrombin Time 10.3 sec (9.3-11.8) Prothrombin Time INR 0.97 (0.9-1.15) Activated Partial Thromboplast Time 26.4 SEC (24.5-34.5) Test 06/06/25 17:14 06/05/25 04:32 06/04/25 19:27 06/04/25 17:03 Random Vancomycin Level 10.1 ug/mL (5-10) Hepatitis B Surface Antibody Positive (Negative) Hepatitis C Antibody Negative (Negative) Urine Color Yellow (Yellow) Urine Clarity Turbid (Clear) Urine pH 5.5 (5.0-9.0) Urine Specific [place] > 1.050 (1.001-1.035) Urine Protein 1+ (Negative) Urine Ketones Negative (Negative) Urine Blood Negative /uL (Negative) Urine Nitrite Negative (Negative) Urine Bilirubin Negative (Negative) Urine Urobilinogen Normal mg/dL (Negative) Urine Leukocyte Esterase Negative /uL (Negative) Urine RBC 9 /hpf (0 - 3) Urine Microscopic WBC 13 /HPF (0-3) Urine Squamous Epithelial Cells None seen /hpf (<5) Urine Calcium Oxalate Crystals Few (None Seen) Urine Bacteria None seen /hpf (None Seen) Urine Mucus Moderate (None Seen) Urine Glucose Normal mg/dL (Normal) Urine Opiates Screen Neg (NEGATIVE) Urine Fentanyl Screen Neg (NEGATIVE) Urine Barbiturates Screen Neg (NEGATIVE) Urine Phencyclidine Screen Neg (NEGATIVE) Urine Amphetamines Screen Neg (NEGATIVE) Urine Benzodiazepines Screen Neg (NEGATIVE) Urine Cocaine Screen Neg (NEGATIVE) Urine Cannabinoids Screen Neg (NEGATIVE) Erythrocyte Sedimentation Rate 28 mm/hr (0-20) Hemoglobin A1c 5.6 % A1C (<5.7) Test 06/04/25 14:28 Magnesium Level 2.0 mg/dL (1.6-2.6) C-Reactive Protein High Sensitivity 0.24 mg/dL (<1.0) Other Laboratory Tests 06/12/25 06:41 Brief Hx & Hospital Course: The 34-year-old male patient with history of uncontrolled diabetes mellitus and hypertension, was admitted with a sacral abscess sacral decubitus ulcer. A CT pelvis with contrast revealed a soft tissue abscess involving the lower sacrum and coccyx: Extending posteriorly inferiorly with infiltration into the surrounding tissues, of surgical debridement of the nonhealing pilonidal surgical site was performed on 06/06/2025 a wound V.A.C. was placed. Wound cultures revealed growth of Enterococcus faecalis. Infectious Disease was consulted and the patient was initially started on empiric Zosyn and vancomycin which were later discontinued based on culture and sensitivity results the patient was subsequently transitioned to vancomycin and ceftriaxone 2 g IV every 12 hours. A PICC line was inserted and the plan is to continue IV antibiotics for 6 weeks. Blood cultures were obtained and are currently pending. The Infectious Disease team recommended follow up in 4-6 weeks to evaluate resolution of osteomyelitis. Imaging studies including CT thoracic and cervical spine without contrast showed no evidence of acute epidural collection, spinal canal compromise or traumatic subluxation. The patient has a history of C5-C6 anterior cervical Lasix Chiara and fusion without complication. During the hospitalization the patient was also diagnosed with an acute complicated UTI, evidenced by findings on urinalysis and urine culture. Antibiotic therapy was continued accordingly. Type 2 diabetes mellitus was also managed. Blood glucose was monitored regularly and insulin Lantus 10 mg was added to the regimen. HbA1c was ordered. Blood pressure was managed by hydralazine p.r.n.. The patient's medication at discharge included IV ceftriaxone and vancomycin. During his hospital stay as the patient was given GI and VTE prophylaxis. The the the patient is on regular diet, still hemodynamically stable and verbalized understanding of the discharge plan. The patient is advised to follow-up with after 1 week with PCP and after 4-6 weeks with Infectious Disease specialist. Pt is lying on bed General Appearance: PICC line on the left side, Alert, Oriented X3, Cooperative, Mild distress HEENT: Atraumatic, Mucous membranes moist/pink Respiratory: Clear to auscultation, Normal air movement, No added sounds Cardiovascular: Regular rate, Normal S1, Normal S2, No murmurs Abdominal/ : Active bowel sounds, Soft, no distention, no tenderness Extremities: Bilateral minimal wasting noted, No edema, Normal pulses, No tenderness/swelling Skin: Dry Bandage over the sacral region, No Significant rash, except past surgical scars Neuro: Normal speech, sensorimotor deficits none Psych/Mental Status: Mental status NL, Mood NL Nurse was there as bias machine operator during examination Operations or Procedures Thoracic spine MRI: Impression: 1. Disc bulges at T7-T8 and T11-T12 without significant spinal or neural foraminal stenosis in the thoracic spine. 2. No epidural fluid collection on this unenhanced MRI. 3. Indeterminate cystic structure at C7-T1. Unclear if this represents a fluid collection, cystic mass or fluid in the esophagus. CT of the neck with intravenous contrast is recommended for further evaluation. Thoracic spine CT: No CT evidence of thoracic epidural collection. No acute fracture or traumatic subluxation. No high-grade spinal or neural foraminal stenosis. The cystic structure seen on same-day MRI corresponds with a patulous and fluid- filled cervical esophagus. CT cervical spine without contrast: No acute fracture or subluxation in the cervical spine. Post C5-C6 ACDF without evidence of complications. Patulous and debris-filled cervical esophagus. No CT evidence of epidural abscess. Please note that MRI is more sensitive for evaluation of spinal canal pathology. Debridement of non-healed pilonidal surgical site. VAC was placed. Condition at Discharge: Stable Final Diagnosis/Problems List # Sacral abscess/ osteomyelitis # sacral decubitus ulcer, unspecified stage # non-healed pilonidal cyst And sinus # s/p debridement of non-healed pilonidal surgical site on 06/06/2025; Discharge Disposition: Home with Health Services Discharge Instruct/Medications Diet: Consistent carbohydrate, Cardiac 2g Na,low cholest Activity: No Restrictions, As Tolerated Follow Up/Referral: Follow-up with PCP and ID Medications: IV ceftriaxone and vancomycin for 6 weeks Resume home meds No Active Prescriptions or Reported Meds Discharge Statement: "Patient was advised to return to the ER or call 911 if any headaches, dizziness, shortness of breath, chest pain, abdominal pain, bleeding, fevers, or worsening of medical condition. Patient was counseled about treatment plan, medications, possible side effects, patientverbalized understanding. All questions were answered to the best of my ability. This discharge took greater then 30 minutes in planning, reviewing documentation, counseling the patient, and discussing with other team members." ASSESSMENT ASSESSMENT Assessment # Sacral abscess/ osteomyelitis # sacral decubitus ulcer, unspecified stage # non-healed pilonidal cyst And sinus # s/p debridement of non-healed pilonidal surgical site on 06/06/2025; Date of Service: Jun 12, 2025 Billing Provider: CRISTIAN HERNANDEZ MD Common Visit Codes: 27109-FLH/OBS DISCH DAY >30min ANETA BLANTON RESIDENT Jun 12, 2025 17:09 CRISTIAN HERNANDEZ MD Jun 12, 2025 22:22
--- NOTE | 2025-06-13 09:34 | DVHPN2 ---
Consult Progress Note Date Seen: Jun 11, 2025 Subjective Patient reports: Other (piccline in place appears to be functioning , no diarrhea and stool output is not contaminating wound because of the wound vac ) Objective vital signs Vital Sign Date Time Temp Pulse Resp B/P (MAP) Pulse Ox O2 Delivery O2 Flow Rate FiO2 06/12/25 17:08 98.9 82 17 137/92 (107) 98 98.9 06/12/25 08:15 Room Air* 0 21 Total Intake and Output 06/12/25 06/12/25 06/13/25 15:00 23:00 07:00 Intake Total 120 ml 900 ml Balance 120 ml 900 ml medications Current Medications Medications Dose Ordered Sig/Anita Route Start Time Stop Time Status Last Admin Dose Admin Heparin Sodium/ Dextrose 250 ml @ 18.648 mls/ hr [id number] IV 06/05/25 09:45 [facility] laboratory and microbiology Laboratory Tests 06/12/25 06:41 Test 06/12/25 06:41 Range/Units Serum Glucose 125 H 74-106 mg/dL Problem List/Assessment/Plan Problems(with codes): (1) Wound of sacral region (2) Abscess in epidural space of cervical spine Problem List/Assessment/Plan ASSESSMENT AND PLAN: ID Problem List: \-- History of stroke (2024) \-- Epidural abscess status post laminectomy (2024) \-- Sacral osteomyelitis with wound infection (current) \-- Status post sacral wound debridement and wound vac \-- Atrophy of lower extremities \-- Leg numbness Assessment This is a 34-year-old male with a past medical history significant for stroke in 2024 and prior epidural abscess (treated with laminectomy in 2024) who presents with a sacral wound infection and underlying osteomyelitis. Patient was previously bedbound, is now ambulatory with a walker. Recently developed purulent drainage from a sacral wound (with suspected fistulous tract) noted in primary care, and subsequent clinical course notable for wound atrophy, thin habitus, and lower extremity muscular atrophy. Wound cultures grew E. coli (resistant to Levaquin/ciprofloxacin, sensitive to cephalosporins), group Streptococcus, and Enterococcus (vancomycin CELESTE per sensitivity). Urine culture negative. Pelvic CT demonstrates osteomyelitis of lower sacrum and coccyx with soft tissue extension and infiltration of the gluteal musculature. Patient underwent surgical debridement (June 06, 2025) with wound vac applied. MRI T-spine pending to further evaluate for recurrent/remote epidural abscess. Neurology and general surgery have been consulted. Physical therapy/occupational therapy evaluation ongoing. 06/09:unable to get MRI due to rods in patients spine 06/10: repeat blood cultures are no growth to date. cervical and thoracic mri of spine collectively show patient is s/p C5 C6 AC DF without evidence of complications and thoracic mri in particular shows little concern for epidural abscess 06/11: wound culture is finalized with strep verdine growth , e coli and enterococcus . vancomycin and ceftriaxone therapy for 6 weeks will cover these organisms . Plan: - continue wound vac into SNF care \-- continue vancomycin and ceftriaxone 2 g IV once daily , pending status of possible epidural abscess; may transition to daily ceftriaxone if CT shows resolution. - recommend piccline placement - patient will need 6 weeks IV antibiotics for sacral osteomyelitis - f/u with infectious disease clinic in 6 weeks - no additional work up needed for epidural abscess - repeat ct imaging of jj spine in 3-6 months to access if osteomyelitis is resolving \-- Blood cultures to be obtained. \-- Continue wound vac care as per general surgery recommendations. \-- Continue physical therapy and occupational therapy for rehabilitation and mobility needs. \-- Monitor for signs of systemic infection. \-- Outpatient follow up with Infectious Disease in 4-6 weeks to ensure osteomyelitis is resolving. \-- Pending CT thoracic spine with and without contrast (supine), as per neurology recommendations, to rule out residual or recurrent epidural abscess. \-- Patient to remain NPO after midnight if further procedures indicated. \-- Six-week course of IV antibiotics anticipated. \-- Monitor wound healing and clinical improvement closely. Isolation Precautions: Standard Plan discussed with: Other Dietary Evaluation Review Comments: 1) Dev 1 pk BID 2) Vit C 500mg BID, zinc sulfate 220mg BID x 10 days, MVI w mineral 1 tab daily 3) CCHO 75gm + 2gm Na diet Expected Outcomes/Goals: Wound to improve blood glucose WNL Fu 3-5 days MONIQUE DE LEON MD Jun 13, 2025 09:34
--- NOTE | 2025-06-13 09:34 | DVHPN2 ---
Consult Progress Note Date Seen: Jun 10, 2025 Subjective Patient reports: Other (returned from Ct , also got MRI of throacic spine . Dr. Mclaughlin has recommended wound vac and patient is having drainage of wound vac sacral spine ) Objective vital signs Vital Sign Date Time Temp Pulse Resp B/P (MAP) Pulse Ox O2 Delivery O2 Flow Rate FiO2 06/12/25 17:08 98.9 82 17 137/92 (107) 98 98.9 06/12/25 08:15 Room Air* 0 21 Total Intake and Output 06/12/25 06/12/25 06/13/25 15:00 23:00 07:00 Intake Total 120 ml 900 ml Balance 120 ml 900 ml medications Current Medications Medications Dose Ordered Sig/Anita Route Start Time Stop Time Status Last Admin Dose Admin Heparin Sodium/ Dextrose 250 ml @ 18.648 mls/ hr [id number] IV 06/05/25 09:45 [facility] laboratory and microbiology Laboratory Tests 06/12/25 06:41 Test 06/12/25 06:41 Range/Units Serum Glucose 125 H 74-106 mg/dL Problem List/Assessment/Plan Problems(with codes): (1) Wound of sacral region (2) Abscess in epidural space of cervical spine Problem List/Assessment/Plan ASSESSMENT AND PLAN: ID Problem List: \-- History of stroke (2024) \-- Epidural abscess status post laminectomy (2024) \-- Sacral osteomyelitis with wound infection (current) \-- Status post sacral wound debridement and wound vac \-- Atrophy of lower extremities \-- Leg numbness Assessment This is a 34-year-old male with a past medical history significant for stroke in 2024 and prior epidural abscess (treated with laminectomy in 2024) who presents with a sacral wound infection and underlying osteomyelitis. Patient was previously bedbound, is now ambulatory with a walker. Recently developed purulent drainage from a sacral wound (with suspected fistulous tract) noted in primary care, and subsequent clinical course notable for wound atrophy, thin habitus, and lower extremity muscular atrophy. Wound cultures grew E. coli (resistant to Levaquin/ciprofloxacin, sensitive to cephalosporins), group Streptococcus, and Enterococcus (vancomycin CELESTE per sensitivity). Urine culture negative. Pelvic CT demonstrates osteomyelitis of lower sacrum and coccyx with soft tissue extension and infiltration of the gluteal musculature. Patient underwent surgical debridement (June 06, 2025) with wound vac applied. MRI T-spine pending to further evaluate for recurrent/remote epidural abscess. Neurology and general surgery have been consulted. Physical therapy/occupational therapy evaluation ongoing. 06/09:unable to get MRI due to rods in patients spine 06/10: repeat blood cultures are no growth to shin e. cervical and thoracic mri of spine collectively show patient is s/p C5 C6 AC DF without evidence of complications and thoracic mri in particular shows little concern for epidural abcess Plan: \-- continue vancomycin and ceftriaxone 2 g IV once daily , pending status of possible epidural abscess; may transition to daily ceftriaxone if CT shows resolution. - recommend piccline placement - patient will need 6 weeks IV antibiotics for sacral osteomyelitis - f/u with infectious disease clinic in 6 weeks - no additional work up needed for epidural abscess - repeat ct imaging of jj spine in 3-6 months to access if osteomyelitis is resolving \-- Blood cultures to be obtained. \-- Continue wound vac care as per general surgery recommendations. \-- Continue physical therapy and occupational therapy for rehabilitation and mobility needs. \-- Monitor for signs of systemic infection. \-- Outpatient follow up with Infectious Disease in 4-6 weeks to ensure osteomyelitis is resolving. \-- Pending CT thoracic spine with and without contrast (supine), as per neurology recommendations, to rule out residual or recurrent epidural abscess. \-- Patient to remain NPO after midnight if further procedures indicated. \-- Six-week course of IV antibiotics anticipated. \-- Monitor wound healing and clinical improvement closely. Isolation Precautions: Standard Plan discussed with: Other Dietary Evaluation Review Comments: 1) Dev 1 pk BID 2) Vit C 500mg BID, zinc sulfate 220mg BID x 10 days, MVI w mineral 1 tab daily 3) CCHO 75gm + 2gm Na diet Expected Outcomes/Goals: Wound to improve blood glucose WNL Fu 3-5 days MONIQUE DE LEON MD Jun 13, 2025 09:34
--- NOTE | 2025-06-13 09:35 | DVHPN2 ---
Consult Progress Note Date Seen: Jun 12, 2025 Subjective Patient reports: Other (patient desires to go home with IV antibiotics , has someone at home to monitor the wound vac and take care of wound . wound vac has minimal output ) Objective vital signs Vital Sign Date Time Temp Pulse Resp B/P (MAP) Pulse Ox O2 Delivery O2 Flow Rate FiO2 06/12/25 17:08 98.9 82 17 137/92 (107) 98 98.9 06/12/25 08:15 Room Air* 0 21 Total Intake and Output 06/12/25 06/12/25 06/13/25 15:00 23:00 07:00 Intake Total 120 ml 900 ml Balance 120 ml 900 ml medications Current Medications Medications Dose Ordered Sig/Anita Route Start Time Stop Time Status Last Admin Dose Admin Heparin Sodium/ Dextrose 250 ml @ 18.648 mls/ hr [id number] IV 06/05/25 09:45 [facility] laboratory and microbiology Laboratory Tests 06/12/25 06:41 Test 06/12/25 06:41 Range/Units Serum Glucose 125 H 74-106 mg/dL Problem List/Assessment/Plan Problems(with codes): (1) Wound of sacral region (2) Abscess in epidural space of cervical spine (3) Sacral osteomyelitis Problem List/Assessment/Plan ASSESSMENT AND PLAN: ID Problem List: \-- History of stroke (2024) \-- Epidural abscess status post laminectomy (2024) \-- Sacral osteomyelitis with wound infection (current) \-- Status post sacral wound debridement and wound vac \-- Atrophy of lower extremities \-- Leg numbness Assessment This is a 34-year-old male with a past medical history significant for stroke in 2024 and prior epidural abscess (treated with laminectomy in 2024) who presents with a sacral wound infection and underlying osteomyelitis. Patient was previously bedbound, is now ambulatory with a walker. Recently developed purulent drainage from a sacral wound (with suspected fistulous tract) noted in primary care, and subsequent clinical course notable for wound atrophy, thin habitus, and lower extremity muscular atrophy. Wound cultures grew E. coli (resistant to Levaquin/ciprofloxacin, sensitive to cephalosporins), group Streptococcus, and Enterococcus (vancomycin CELESTE per sensitivity). Urine culture negative. Pelvic CT demonstrates osteomyelitis of lower sacrum and coccyx with soft tissue extension and infiltration of the gluteal musculature. Patient underwent surgical debridement (June 06, 2025) with wound vac applied. MRI T-spine pending to further evaluate for recurrent/remote epidural abscess. Neurology and general surgery have been consulted. Physical therapy/occupational therapy evaluation ongoing. 06/09:unable to get MRI due to rods in patients spine 06/10: repeat blood cultures are no growth to date. cervical and thoracic mri of spine collectively show patient is s/p C5 C6 AC DF without evidence of complications and thoracic mri in particular shows little concern for epidural abscess 06/11: wound culture is finalized with strep verdine growth , e coli and enterococcus . vancomycin and ceftriaxone therapy for 6 weeks will cover these organisms . 06/12: has home iv antibiotics and wound care in place Plan: - recommend f/u with general surgery for management of ongoing chronic would care of sacral wound - recommend follow up with primary care to acquire appropriate home health equipment so patient can improve offloading of presser from sacral wound , including a trapezius bar , large cushioned wheel chair turning every 2 hours - continue wound vac into SNF care \-- continue vancomycin and ceftriaxone 2 g IV once daily , pending status of possible epidural abscess; may transition to daily ceftriaxone if CT shows resolution. - recommend piccline placement - patient will need 6 weeks IV antibiotics for sacral osteomyelitis - f/u with infectious disease clinic in 6 weeks - no additional work up needed for epidural abscess - repeat ct imaging of jj spine in 3-6 months to access if osteomyelitis is resolving \-- Blood cultures to be obtained. \-- Continue wound vac care as per general surgery recommendations. \-- Continue physical therapy and occupational therapy for rehabilitation and mobility needs. \-- Monitor for signs of systemic infection. \-- Outpatient follow up with Infectious Disease in 4-6 weeks to ensure osteomyelitis is resolving. \-- Pending CT thoracic spine with and without contrast (supine), as per neurology recommendations, to rule out residual or recurrent epidural abscess. \-- Patient to remain NPO after midnight if further procedures indicated. \-- Six-week course of IV antibiotics anticipated. \-- Monitor wound healing and clinical improvement closely. Isolation Precautions: Standard Plan discussed with: Other Dietary Evaluation Review Comments: 1) Dev 1 pk BID 2) Vit C 500mg BID, zinc sulfate 220mg BID x 10 days, MVI w mineral 1 tab daily 3) CCHO 75gm + 2gm Na diet Expected Outcomes/Goals: Wound to improve blood glucose WNL Fu 3-5 days MONIQUE DE LEON MD Jun 13, 2025 09:35
== END 2025-06-12 18:47 | disposition home health service (06) | DRG 623 ==
LOC: ER 13:43 → OVERFLOW 15:37 → WEST WING 22:45
PROVIDERS: ADMIT Internal Medicine; ATTEND Internal Medicine
PROC: 0JB70ZZ Excision of Back Subcutaneous Tissue and Fascia, Open Approach (ICD-10-PCS; principal; 2025-06-06 14:27)
PROC: 02HV33Z Insertion of Infusion Device into Superior Vena Cava, Percutaneous Approach (ICD-10-PCS; 2025-06-11)
PROC: B548ZZA Ultrasonography of Superior Vena Cava, Guidance (ICD-10-PCS; 2025-06-11)
DX: E11.69 Type 2 diabetes mellitus with other specified complication (principal); L02.31 Cutaneous abscess of buttock; M46.28 Osteomyelitis of vertebra, sacral and sacrococcygeal region; N39.0 Urinary tract infection, site not specified; Z16.23 Resistance to quinolones and fluoroquinolones; L89.159 Pressure ulcer of sacral region, unspecified stage; B95.2 Enterococcus as the cause of diseases classified elsewhere; I10 Essential (primary) hypertension; L05.91 Pilonidal cyst without abscess; L05.92 Pilonidal sinus without abscess; R20.0 Anesthesia of skin; B96.20 Unspecified Escherichia coli [E. coli] as the cause of diseases classified elsewhere; Z86.73 Personal history of transient ischemic attack (TIA), and cerebral infarction without residual deficits; Z79.4 Long term (current) use of insulin; Z74.01 Bed confinement status; Z87.891 Personal history of nicotine dependence; Z79.84 Long term (current) use of oral hypoglycemic drugs
CPT/HCPCS: 36415; 36569; 72127; 72130; 72146; 72193; 76937; 80048; 80053; 80202; 80307; 81001; 82565; 82962; 83036; 83735; 85025; 85610; 85652; 85730; 86141; 86706; 86803; 87040; 87077; 87081; 87086; 87186; 87205; 97110; 97116; 97163; G0378; J0690; J1100; J1335; J1815; J2250; J2470; J2543; J2704

== ENCOUNTER 2025-06-18 10:42 | Outpatient (CLI) | payer BC ==
[2025-06-18 11:49] LABS: Hematocrit 38.9 % (41.0-53.0); Hemoglobin 13.6 g/dL (13.5-17.5); Mean Corpuscular Hemoglobin 29.3 pg (28.0-32.0); Mean Corpuscular Volume 83.5 fL (80.0-100.0); Nucleated Red Blood Cells % 0.0 %
[2025-06-18 12:15] LABS: Alanine Aminotransferase 26 U/L (7-40); Albumin 4.3 g/dL (3.2-4.8); Alkaline Phosphatase 99 U/L (46-116); Anion Gap 10 (5-15); BUN/Creatinine Ratio 20.3 (10.0-20.0); Bilirubin, Total 0.5 mg/dL (0.2-1.0); Blood Urea Nitrogen 12 mg/dL (9-23); Calcium 9.8 mg/dL (8.7-10.4); Carbon Dioxide 27 mmol/L (20-31); Chloride 104 mmol/L (98-107); Potassium 3.9 mmol/L (3.5-5.1); Sodium 141 mmol/L (136-145); Total Protein 6.3 g/dL (5.7-8.2)
[2025-06-18 12:17] LABS: Glucose 120 mg/dL (74-106)
== END 2025-06-18 17:00 | disposition home or self-care (01) ==
LOC: LAB 10:42
PROVIDERS: ATTEND Internal Medicine
DX: I10 Essential (primary) hypertension (principal); E11.65 Type 2 diabetes mellitus with hyperglycemia; L89.154 Pressure ulcer of sacral region, stage 4
CPT/HCPCS: 36415; 80053; 80202; 85025

== ENCOUNTER 2025-06-25 13:03 | Outpatient (CLI) | payer BC ==
[2025-06-25 13:35] LABS: Alanine Aminotransferase 26 U/L (7-40); Albumin 4.3 g/dL (3.2-4.8); Alkaline Phosphatase 90 U/L (46-116); Anion Gap 11 (5-15); BUN/Creatinine Ratio 22.8 (10.0-20.0); Bilirubin, Total 0.5 mg/dL (0.2-1.0); Blood Urea Nitrogen 13 mg/dL (9-23); Calcium 8.7 mg/dL (8.7-10.4); Carbon Dioxide 28 mmol/L (20-31); Chloride 106 mmol/L (98-107); Glucose 104 mg/dL (74-106); Potassium 3.7 mmol/L (3.5-5.1); Sodium 145 mmol/L (136-145); Total Protein 6.2 g/dL (5.7-8.2)
[2025-06-25 14:00] LABS: Hematocrit 38.4 % (41.0-53.0); Hemoglobin 13.3 g/dL (13.5-17.5); Mean Corpuscular Hemoglobin 29.1 pg (28.0-32.0); Mean Corpuscular Volume 84.0 fL (80.0-100.0)
[2025-06-25 14:18] LABS: Total Cells Counted 100.0 (100)
== END 2025-06-25 17:00 | disposition home or self-care (01) ==
LOC: LAB 13:03
PROVIDERS: ATTEND Internal Medicine
DX: M86.00 Acute hematogenous osteomyelitis, unspecified site (principal)
CPT/HCPCS: 36415; 80053; 80202; 85007; 85027

== ENCOUNTER → 2025-07-02 | Outpatient (CLI) | payer BC ==
[2025-07-02 13:19] LABS: Hematocrit 38.0 % (41.0-53.0); Hemoglobin 13.3 g/dL (13.5-17.5); Mean Corpuscular Hemoglobin 29.1 pg (28.0-32.0); Mean Corpuscular Volume 83.5 fL (80.0-100.0)
[2025-07-02 13:34] LABS: Alanine Aminotransferase 21 U/L (7-40); Albumin 4.2 g/dL (3.2-4.8); Alkaline Phosphatase 91 U/L (46-116); Anion Gap 7 (5-15); BUN/Creatinine Ratio 18.9 (10.0-20.0); Bilirubin, Total 0.5 mg/dL (0.2-1.0); Blood Urea Nitrogen 10 mg/dL (9-23); Calcium 8.7 mg/dL (8.7-10.4); Carbon Dioxide 28 mmol/L (20-31); Chloride 107 mmol/L (98-107); Glucose 96 mg/dL (74-106); Potassium 3.5 mmol/L (3.5-5.1); Sodium 142 mmol/L (136-145); Total Protein 6.0 g/dL (5.7-8.2)
[2025-07-02 14:25] LABS: Total Cells Counted 100.0 (100)
== END | disposition home or self-care (01) ==
LOC: LAB 11:30
PROVIDERS: ATTEND Internal Medicine
DX: M86.9 Osteomyelitis, unspecified (principal)
CPT/HCPCS: 36415; 80053; 80202; 85007; 85027

== ENCOUNTER 2025-07-09 11:28 | Outpatient (CLI) | payer BC ==
[2025-07-09 12:03] LABS: Hematocrit 41.7 % (41.0-53.0); Hemoglobin 14.4 g/dL (13.5-17.5); Mean Corpuscular Hemoglobin 28.7 pg (28.0-32.0); Mean Corpuscular Volume 83.1 fL (80.0-100.0); Nucleated Red Blood Cells % 0.2 %
[2025-07-09 12:28] LABS: Alanine Aminotransferase 25 U/L (7-40); Albumin 4.4 g/dL (3.2-4.8); Alkaline Phosphatase 93 U/L (46-116); Anion Gap 11 (5-15); BUN/Creatinine Ratio 27.9 (10.0-20.0); Blood Urea Nitrogen 17 mg/dL (9-23); Calcium 8.8 mg/dL (8.7-10.4); Carbon Dioxide 25 mmol/L (20-31); Potassium 4.0 mmol/L (3.5-5.1); Sodium 145 mmol/L (136-145); Total Protein 6.3 g/dL (5.7-8.2)
[2025-07-09 12:29] LABS: Bilirubin, Total 0.4 mg/dL (0.2-1.0); Chloride 109 mmol/L (98-107); Glucose 116 mg/dL (74-106)
== END 2025-07-09 17:00 | disposition home or self-care (01) ==
LOC: LAB 11:28
PROVIDERS: ATTEND Internal Medicine
DX: M86.00 Acute hematogenous osteomyelitis, unspecified site (principal)
CPT/HCPCS: 36415; 80053; 80202; 85025

== ENCOUNTER 2025-07-16 12:26 | Outpatient (CLI) | payer BC ==
[2025-07-16 13:40] LABS: Hemoglobin 12.7 g/dL (13.5-17.5)
[2025-07-16 13:42] LABS: Hematocrit 37.1 % (41.0-53.0); Mean Corpuscular Hemoglobin 28.6 pg (28.0-32.0); Mean Corpuscular Volume 83.2 fL (80.0-100.0)
[2025-07-16 14:12] LABS: Total Cells Counted 100.0 (100)
[2025-07-16 14:59] LABS: Alanine Aminotransferase 28 U/L (7-40); Albumin 4.2 g/dL (3.2-4.8); Alkaline Phosphatase 82 U/L (46-116); Anion Gap 11 (5-15); BUN/Creatinine Ratio 27.6 (10.0-20.0); Bilirubin, Total 0.4 mg/dL (0.2-1.0); Blood Urea Nitrogen 16 mg/dL (9-23); Calcium 8.9 mg/dL (8.7-10.4); Carbon Dioxide 25 mmol/L (20-31); Potassium 3.6 mmol/L (3.5-5.1); Total Protein 6.0 g/dL (5.7-8.2)
[2025-07-16 15:05] LABS: Chloride 109 mmol/L (98-107); Glucose 158 mg/dL (74-106); Sodium 145 mmol/L (136-145)
== END 2025-07-16 17:00 | disposition home or self-care (01) ==
LOC: LAB 12:26
PROVIDERS: ATTEND Internal Medicine
DX: M86.9 Osteomyelitis, unspecified (principal)
CPT/HCPCS: 36415; 80053; 80202; 85007; 85027

== ENCOUNTER → 2025-07-23 | Outpatient (CLI) | payer BC ==
[2025-07-23 12:57] LABS: Hematocrit 39.4 % (41.0-53.0); Hemoglobin 13.5 g/dL (13.5-17.5); Mean Corpuscular Hemoglobin 28.8 pg (28.0-32.0); Mean Corpuscular Volume 83.8 fL (80.0-100.0); Nucleated Red Blood Cells % 0.2 %
[2025-07-23 13:06] LABS: Alanine Aminotransferase 23 U/L (7-40); Albumin 4.0 g/dL (3.2-4.8); Alkaline Phosphatase 81 U/L (46-116); Anion Gap 13 (5-15); BUN/Creatinine Ratio 33.3 (10.0-20.0); Blood Urea Nitrogen 18 mg/dL (9-23); Carbon Dioxide 26 mmol/L (20-31); Glucose 88 mg/dL (74-106); Potassium 3.6 mmol/L (3.5-5.1); Total Protein 6.2 g/dL (5.7-8.2)
[2025-07-23 13:07] LABS: Bilirubin, Total 0.4 mg/dL (0.2-1.0); Calcium 8.3 mg/dL (8.7-10.4); Chloride 109 mmol/L (98-107); Sodium 148 mmol/L (136-145)
== END | disposition home or self-care (01) ==
LOC: LAB 12:11
PROVIDERS: ATTEND Internal Medicine
DX: M86.9 Osteomyelitis, unspecified (principal)
CPT/HCPCS: 36415; 80053; 80202; 85025